=== PATIENT | male | born 1960 | race Caucasian/White ===

== ENCOUNTER 2021-06-18 08:49 | Outpatient (REF) | payer MEDICARE, SELFPAY ==
[2021-06-18 09:06] LABS: MANUAL DIFF FLAG NO
[2021-06-18 09:55] LABS: Basophils Absolute Auto 0.1 X10*3/uL (0.0-0.2); Basophils Percent Auto 0.8 % (0-2); Eosinophils Absolute Auto 0.4 X10*3/uL (0.0-0.4); Eosinophils Percent Auto 4.8 % (0-4); Hematocrit 42.7 % (42.0-52.0); Hemoglobin 14.6 g/dl (14.0-18.0); Imm Gran Abs Auto 0.04 X10*3/uL (0.00-0.03); Imm Gran Pct Auto 0.5 % (0.0-0.4); Lymphocytes Absolute Auto 1.8 X10*3/uL (1.2-4.9); Mean Corpuscular HGB Conc 34.2 g/dl (31.0-36.0); Mean Corpuscular Hemoglobin 30.5 pg (27.0-33.0); Mean Corpuscular Volume 89.3 fL (80.0-98.0); Mean Platelet Volume 11.2 fL (9.4-12.4); Monocytes Absolute Auto 0.9 X10*3/uL (0.1-1.2); Monocytes Percent Auto 9.8 % (2-11); Neutrophils Absolute Auto 5.5 x10*3/uL (2.0-8.3); Neutrophils Percent Auto 63.1 % (45-73); Platelet Count 179 X10*3/uL (160-400); Red Blood Count 4.78 X10*6/uL (4.60-5.80); Red Cell Distribution Width 12.3 % (11.0-16.0); White Blood Count 8.7 X10*3/uL (4.8-10.8)
[2021-06-18 10:31] LABS: Alanine Aminotransferase 37 U/L (0-40); Albumin Level 4.1 g/dL (3.5-5.0); Alkaline Phosphatase 77 U/L (39-117); Anion Gap 11 (12-20); Aspartate Amino Transferase 24 U/L (5-37); Bilirubin Total 0.5 mg/dL (0.0-1.0); Blood Urea Nitrogen 13 mg/dL (9-16); Calcium 9.4 mg/dL (8.4-10.2); Carbon Dioxide 27 mmol/L (22-29); Chloride 104 mmol/L (96-108); Cholesterol 213 mg/dL; Estimated Glomerular Filt Rate > 60; Glucose Fasting 136 mg/dL (60-99); HDL Cholesterol 43 mg/dL; LDL Cholesterol Calculated 153 mg/dl; Potassium 4.3 mmol/L (3.3-5.1); Sodium 138 mmol/L (135-145); Total Protein 7.3 g/dL (6.5-8.0); Triglycerides 87 mg/dL
[2021-06-18 11:21] LABS: Prostate Specific Antigen 0.67 ng/mL (<0.05-4.0)
== END 2021-06-18 08:50 | disposition home or self-care (01) ==
LOC: HO.LAB 08:49
PROVIDERS: PCP Internal Medicine Medical Oncology; Visit Provider Internal Medicine Medical Oncology
DX: Z12.5 Encounter for screening for malignant neoplasm of prostate (principal); E66.9 Obesity, unspecified; G47.30 Sleep apnea, unspecified; E78.5 Hyperlipidemia, unspecified; M19.90 Unspecified osteoarthritis, unspecified site
CPT/HCPCS: 36415; 80053; 80061; 84153; 85025

== ENCOUNTER 2022-05-28 07:26 | Outpatient (REF) | payer MEDICARE, SELFPAY ==
--- NOTE | ~2022-05-28 | XR_ITS ---
EXAMINATION: XR LUMBAR SPINE XR SACRUM AND COCCYX CLINICAL INFORMATION: Lumbar back pain and sacral pain. COMPARISON: None TECHNIQUE: Sacrum/coccyx 3 views. Lumbar spine 3 views. FINDINGS: Lumbar Spine: There is normal lumbar lordosis. The vertebral heights and alignment is normal. There is loss of L3-L4 disc height with moderate ventral spondylosis. The rest of the disc heights are normal. There is moderate bilateral L5-S1 and L4-L5 facet joint hypertrophy. No lytic process seen. The paravertebral soft tissues are normal. Sacrum and/or coccyx: There is no visible fracture or bony abnormality involving sacrum or coccyx. The pre and post sacral soft tissues are normal. SI joints are symmetrical. XR/XR sacrum coccyx min 2V IMPRESSION: 1. Degenerative disc changes L3-L4 disc level with moderate ventral spondylosis. No visible acute fracture, dislocation or lytic process seen. 2. Unremarkable sacrum and/or coccyx. No pre or post sacral soft tissue abnormality seen. The SI joints are symmetrical. 3. Unremarkable sacrum and coccyx
--- NOTE | ~2022-05-28 | XR_ITS ---
EXAMINATION: XR LUMBAR SPINE XR SACRUM AND COCCYX CLINICAL INFORMATION: Lumbar back pain and sacral pain. COMPARISON: None TECHNIQUE: Sacrum/coccyx 3 views. Lumbar spine 3 views. FINDINGS: Lumbar Spine: There is normal lumbar lordosis. The vertebral heights and alignment is normal. There is loss of L3-L4 disc height with moderate ventral spondylosis. The rest of the disc heights are normal. There is moderate bilateral L5-S1 and L4-L5 facet joint hypertrophy. No lytic process seen. The paravertebral soft tissues are normal. Sacrum and/or coccyx: There is no visible fracture or bony abnormality involving sacrum or coccyx. The pre and post sacral soft tissues are normal. SI joints are symmetrical. XR/XR lumbar spine 2-3V IMPRESSION: 1. Degenerative disc changes L3-L4 disc level with moderate ventral spondylosis. No visible acute fracture, dislocation or lytic process seen. 2. Unremarkable sacrum and/or coccyx. No pre or post sacral soft tissue abnormality seen. The SI joints are symmetrical. 3. Unremarkable sacrum and coccyx
[2022-05-28 07:43] LABS: MANUAL DIFF FLAG NO
[2022-05-28 08:11] LABS: Basophils Absolute Auto 0.1 X10*3/uL (0.0-0.2); Basophils Percent Auto 1.3 % (0-2); Eosinophils Absolute Auto 0.4 X10*3/uL (0.0-0.4); Eosinophils Percent Auto 7.7 % (0-4); Hematocrit 42.8 % (42.0-52.0); Hemoglobin 14.6 g/dl (14.0-18.0); Imm Gran Abs Auto 0.02 X10*3/uL (0.00-0.03); Imm Gran Pct Auto 0.4 % (0.0-0.4); Lymphocytes Absolute Auto 1.4 X10*3/uL (1.2-4.9); Lymphocytes Percent Auto 25.2 % (20-40); Mean Corpuscular HGB Conc 34.1 g/dl (31.0-36.0); Mean Corpuscular Hemoglobin 29.7 pg (27.0-33.0); Mean Corpuscular Volume 87.2 fL (80.0-98.0); Mean Platelet Volume 11.1 fL (9.4-12.4); Monocytes Absolute Auto 0.7 X10*3/uL (0.1-1.2); Monocytes Percent Auto 12.7 % (2-11); Neutrophils Percent Auto 52.7 % (45-73); Platelet Count 202 X10*3/uL (160-400); Red Blood Count 4.91 X10*6/uL (4.60-5.80); White Blood Count 5.6 X10*3/uL (4.8-10.8)
[2022-05-28 09:01] LABS: Alanine Aminotransferase 30 U/L (0-40); Albumin Level 4.1 g/dL (3.5-5.0); Alkaline Phosphatase 99 U/L (39-117); Anion Gap 13 (12-20); Aspartate Amino Transferase 20 U/L (5-37); Bilirubin Total 0.6 mg/dL (0.0-1.0); Blood Urea Nitrogen 13 mg/dL (9-16); Carbon Dioxide 28 mmol/L (22-29); Chloride 103 mmol/L (96-108); Cholesterol 164 mg/dL; Estimated Glomerular Filt Rate > 60; Glucose Fasting 155 mg/dL (60-99); HDL Cholesterol 38 mg/dL; LDL Cholesterol Calculated 109 mg/dl; Potassium 4.6 mmol/L (3.3-5.1); Prostate Specific Antigen 0.65 ng/mL (<0.05-4.0); Sodium 139 mmol/L (135-145); Triglycerides 86 mg/dL
== END 2022-05-28 07:27 | disposition home or self-care (01) ==
LOC: HO.LAB 07:26
PROVIDERS: PCP Internal Medicine Medical Oncology; Visit Provider Internal Medicine Medical Oncology
DX: G47.30 Sleep apnea, unspecified (principal); R73.9 Hyperglycemia, unspecified; E66.9 Obesity, unspecified; N40.0 Benign prostatic hyperplasia without lower urinary tract symptoms; M54.50 Low back pain, unspecified; M53.3 Sacrococcygeal disorders, not elsewhere classified; Z12.5 Encounter for screening for malignant neoplasm of prostate
CPT/HCPCS: 36415; 72100; 72220; 80053; 80061; 84153; 85025

== ENCOUNTER 2022-06-16 10:30 | Outpatient (REF) | payer MEDICARE, SELFPAY ==
--- NOTE | ~2022-06-16 | XR_ITS ---
EXAMINATION:XR cervical spine min 6V CLINICAL INFORMATION: Pain COMPARISON: None TECHNIQUE: 6 views acquired, frontal , lateral, both obliques, open-mouth odontoid view and swimmer's view. FINDINGS: 7 cervical vertebrae identified maintaining normal height and alignments.. Narrowing of intervertebral disc spaces at C4-C5, C5-C6, C6-C7 and C7-T1 suggests underlying mild degenerative disc disease. No prevertebral soft tissue swelling. Surrounding soft tissue and included lung apices are clear. There are developed small osteophyte from the edges of endplates encroaching on the foramen, on the left side at C3-C4, on the right side at C4-C5 and C5-C6. Included lung apices are clear. XR/XR cervical spine min 6V IMPRESSION: * No fracture. * Narrowing of intervertebral disc spaces suggest underlying degenerative disc disease. * Small osteophyte developed from the edges of endplates encroaching on the neural foramen at multiple levels, if patient has neurological symptoms consider correlation with MRI to assess for possible nerve impingement.
== END 2022-06-16 10:31 | disposition home or self-care (01) ==
LOC: HO.XRAY 10:30
PROVIDERS: PCP Internal Medicine Medical Oncology; Visit Provider Chiropractor
DX: M54.2 Cervicalgia (principal)
CPT/HCPCS: 72052

== ENCOUNTER → 2022-08-02 15:37 | Outpatient (BNVA) | payer MEDICARE, SELFPAY | PROVIDERS: PCP Internal Medicine Medical Oncology; Visit Provider Internal Medicine | DX: G47.33 Obstructive sleep apnea (adult) (pediatric) (principal); E66.9 Obesity, unspecified; Z68.34 Body mass index [BMI] 34.0-34.9, adult; Z99.89 Dependence on other enabling machines and devices | CPT/HCPCS: 99202 ==

== ENCOUNTER 2022-10-08 08:48 | Outpatient (REF) | payer BC, SELFPAY ==
[2022-10-08 09:00] LABS: MANUAL DIFF FLAG NO
[2022-10-08 09:05] LABS: Basophils Absolute Auto 0.1 X10*3/uL (0.0-0.2); Basophils Percent Auto 1.2 % (0-2); Eosinophils Absolute Auto 0.3 X10*3/uL (0.0-0.4); Eosinophils Percent Auto 4.9 % (0-4); Hematocrit 42.1 % (42.0-52.0); Hemoglobin 14.4 g/dl (14.0-18.0); Imm Gran Abs Auto 0.01 X10*3/uL (0.00-0.03); Imm Gran Pct Auto 0.2 % (0.0-0.4); Lymphocytes Absolute Auto 1.8 X10*3/uL (1.2-4.9); Lymphocytes Percent Auto 30.1 % (20-40); Mean Corpuscular HGB Conc 34.2 g/dl (31.0-36.0); Mean Corpuscular Hemoglobin 29.4 pg (27.0-33.0); Mean Corpuscular Volume 85.9 fL (80.0-98.0); Mean Platelet Volume 10.8 fL (9.4-12.4); Monocytes Absolute Auto 0.8 X10*3/uL (0.1-1.2); Monocytes Percent Auto 12.9 % (2-11); Neutrophils Percent Auto 50.7 % (45-73); Platelet Count 216 X10*3/uL (160-400); Red Cell Distribution Width 12.4 % (11.0-16.0); White Blood Count 5.9 X10*3/uL (4.8-10.8)
[2022-10-08 09:17] LABS: Estimated Average Glucose 166 mg/dL; Hemoglobin A1c % 7.4 %
[2022-10-08 09:35] LABS: Alanine Aminotransferase 38 U/L (0-40); Albumin Level 4.2 g/dL (3.5-5.0); Alkaline Phosphatase 110 U/L (39-117); Anion Gap 12 (12-20); Aspartate Amino Transferase 24 U/L (5-37); Bilirubin Total 0.6 mg/dL (0.0-1.0); Blood Urea Nitrogen 13 mg/dL (9-16); Calcium 9.6 mg/dL (8.4-10.2); Carbon Dioxide 25 mmol/L (22-29); Chloride 108 mmol/L (96-108); Cholesterol 168 mg/dL; Estimated Glomerular Filt Rate > 60; Glucose Random 151 mg/dL (60-115); HDL Cholesterol 39 mg/dL; LDL Cholesterol Calculated 116 mg/dl; Potassium 3.9 mmol/L (3.3-5.1); Sodium 141 mmol/L (135-145); Total Protein 7.1 g/dL (6.5-8.0); Triglycerides 68 mg/dL
[2022-10-08 09:48] LABS: Creatinine Urine 183.58 mg/dL; Microalbum/Creatinine Ratio Ur 9.2 ug/mg cr
== END 2022-10-08 08:49 | disposition home or self-care (01) ==
LOC: HO.LAB 08:48
PROVIDERS: PCP Internal Medicine Medical Oncology; Visit Provider Internal Medicine Medical Oncology
DX: G47.30 Sleep apnea, unspecified (principal); E78.5 Hyperlipidemia, unspecified; R73.9 Hyperglycemia, unspecified; E66.9 Obesity, unspecified
CPT/HCPCS: 36415; 80053; 80061; 82043; 83036; 85025

== ENCOUNTER 2023-06-10 09:45 | Outpatient (REF) | payer BC, SELFPAY ==
[2023-06-10 10:02] LABS: MANUAL DIFF FLAG NO
[2023-06-10 10:27] LABS: Basophils Absolute Auto 0.1 X10*3/uL (0.0-0.2); Basophils Percent Auto 1.1 % (0-2); Eosinophils Absolute Auto 0.3 X10*3/uL (0.0-0.4); Eosinophils Percent Auto 4.9 % (0-4); Hematocrit 42.3 % (42.0-52.0); Hemoglobin 14.4 g/dl (14.0-18.0); Imm Gran Abs Auto 0.01 X10*3/uL (0.00-0.03); Imm Gran Pct Auto 0.2 % (0.0-0.4); Lymphocytes Absolute Auto 1.7 X10*3/uL (1.2-4.9); Mean Corpuscular Hemoglobin 29.9 pg (27.0-33.0); Mean Corpuscular Volume 87.9 fL (80.0-98.0); Mean Platelet Volume 11.4 fL (9.4-12.4); Monocytes Absolute Auto 0.8 X10*3/uL (0.1-1.2); Monocytes Percent Auto 12.7 % (2-11); Neutrophils Absolute Auto 3.4 x10*3/uL (2.0-8.3); Neutrophils Percent Auto 54.1 % (45-73); Platelet Count 185 X10*3/uL (160-400); Red Blood Count 4.81 X10*6/uL (4.60-5.80); Red Cell Distribution Width 11.9 % (11.0-16.0); White Blood Count 6.4 X10*3/uL (4.8-10.8)
[2023-06-10 10:58] LABS: Alanine Aminotransferase 26 U/L (0-40); Alkaline Phosphatase 101 U/L (39-117); Anion Gap 13 (12-20); Aspartate Amino Transferase 21 U/L (5-37); Bilirubin Total 0.5 mg/dL (0.0-1.0); Blood Urea Nitrogen 12 mg/dL (9-16); Calcium 9.8 mg/dL (8.4-10.2); Carbon Dioxide 25 mmol/L (22-29); Chloride 105 mmol/L (96-108); Cholesterol 162 mg/dL (<200); Estimated Glomerular Filt Rate > 60; Glucose Random 158 mg/dL (60-115); HDL Cholesterol 42 mg/dL (>40); LDL Cholesterol Calculated 105 mg/dL (<100); Potassium 3.5 mmol/L (3.3-5.1); Sodium 139 mmol/L (135-145); Total Protein 7.4 g/dL (6.5-8.0); Triglycerides 78 mg/dL (<150)
[2023-06-10 11:16] LABS: Prostate Specific Antigen 0.81 ng/mL (<0.05-4.0)
== END 2023-06-10 09:46 | disposition home or self-care (01) ==
LOC: HO.LAB 09:45
PROVIDERS: PCP Internal Medicine Medical Oncology; Visit Provider Internal Medicine Medical Oncology
DX: Z12.5 Encounter for screening for malignant neoplasm of prostate (principal); E78.5 Hyperlipidemia, unspecified; E66.9 Obesity, unspecified; N40.0 Benign prostatic hyperplasia without lower urinary tract symptoms
CPT/HCPCS: 36415; 80053; 80061; 84153; 85025

== ENCOUNTER 2024-06-25 14:12 | Outpatient (REF) | payer BC, SELFPAY ==
[2024-06-25 14:49] LABS: C Reactive Protein 0.39 mg/dL (< or = 0.50)
[2024-06-25 15:15] LABS: Erythrocyte Sedimentation Rate 29 MM/HR (0-15)
== END 2024-06-25 14:13 | disposition home or self-care (01) ==
LOC: HO.LAB 14:12
PROVIDERS: PCP Internal Medicine Medical Oncology; Visit Provider Psychiatry & Neurology Neurology
DX: M31.6 Other giant cell arteritis (principal); H46.9 Unspecified optic neuritis
CPT/HCPCS: 36415; 85652; 86140

== ENCOUNTER 2024-06-26 16:29 | Outpatient (REF) | payer BC, SELFPAY ==
[2024-06-27 21:58] LABS: Lyme Abs Screen <0.90 index
== END 2024-06-26 16:30 | disposition home or self-care (01) ==
LOC: HO.LAB 16:29
PROVIDERS: PCP Internal Medicine Medical Oncology; Visit Provider Psychiatry & Neurology Neurology
DX: H46.9 Unspecified optic neuritis (principal)
CPT/HCPCS: 36415; 86617; 86618

== ENCOUNTER 2024-10-22 15:30 | Outpatient (AMB) | payer BC, SELFPAY ==
[2024-10-22 15:51] VITALS: BP 120/70; PULSE 79; O2SAT 97; BMI 28.1
--- NOTE | 2024-10-22 15:51 | A.OFFVIS_ITS ---
Vital Signs 10/22/24 15:51 Height 6 ft 1 in Weight 213 lb BMI 28.1 BP 120/70 Blood Pressure Location Lt brachial Position Sitting Pulse 79 Pulse Source Pulse Oximeter Pulse Oximetry (%) 97 Oxygen Delivery Method Room Air Intake Visit Reasons: Obstructive sleep apnea Intake Note: pt is here for COLBY follow up and needs new supplies but has lost weight and not sure of mask size at this time. Allergies hydromorphone [From Dilaudid] Adverse Reaction (Severe, Verified 10/22/24 16:17) Nausea and Vomiting Medication List - Last Reconciled 10/22/24 by Ishan Gary MD atorvastatin 10 mg PO DAILY lisinopril 10 mg PO DAILY metformin 850 mg PO DAILY omega-3 fatty acids 1,000 mg PO DAILY Do you need a note to return to daycare/school/sports/work: No HPI HPI Obstructive sleep apnea: Details: THIS 63 YEARS OLD VERY PLEASANT GENTLEMAN IS A CASE OF OBSTRUCTIVE SLEEP APNEA, LAST TIME HE WAS SEEN WAS A COUPLE YEARS AGO, HE HAS BEEN USING HIS CPAP VERY REGULARLY. DIAGNOSED TO HAVE DIABETES MELLITUS SINCE EARLY THIS YEAR. HE HAS BEEN WATCHING HIS DIET AND ALSO WAS STARTED ON METFORMIN. HE HAS LOST ABOUT 50 LB OF WEIGHT DURING THE PAST 6-8 MONTHS. FOR HIS CPAP HE HAS BEEN USING LARGE FULLFACE MASK. RECENTLY HAS NOTICED THAT WHILE HE IS SLEEPING HE WAKES UP WITH A BIG AIR LEAK. SO HE CAME TODAY TO DISCUSS ABOUT VARIOUS TYPES OF MASKS. EVEN THOUGH HE HAS LOST WEIGHT, HE WOULD STILL LIKE TO CONTINUE USING THE CPAP. PART OF THE REASON FOR HIS COLBY IS MILD RETROGNATHIA OF THE LOWER JAW. HE HAS OBSERVED THAT SINCE HE USES THE CPAP AT NIGHT HIS THE ALLERGIES HER MUCH LESS, AND WHEN HE MISSES USING THE CPAP FOR A FEW NIGHTS HE HAS HAS LOT OF SNEEZING DURING THE DAYTIME. [facility] Medical History COLBY on CPAP Obesity (BMI 30-39.9) Social History Patient Tobacco Use Status: Former Tobacco user Review of Systems Const All systems reviewed & are unremarkable except as noted in HPI and below Denies snoring Eyes Reports no additional complaints ENT Reports no additional complaints Card Denies chest pain at rest, Denies irregular heart rhythm and Denies leg edema Resp Denies cough, Denies snoring and Denies wheezing GI Reports no additional complaints Reports no additional complaints Musc Reports no additional complaints Skin/Breast Reports system reviewed and no additional complaints, except as documented Neuro Reports no additional complaints Psych Reports no additional complaints Endo Reports no additional complaints Franko/Lymph Reports no additional complaints Aller/Immun Reports no additional complaints and Denies wheezing Physical Exam Vital Signs: Last Vital Signs Pulse 79 10/22/24 15:51 BP 120/70 10/22/24 15:51 Pulse Ox 97 10/22/24 15:51 Oxygen Delivery Method Room Air 10/22/24 15:51 BMI result Body Mass Index 28.1 YEARS GROSSLY OBESE BUT OTHERWISE HEALTHY LOOKING Const General: healthy appearing (EXCEPT FOR BEING OVERWEIGHT), comfortable, no acute distress, alert and awake Orientation/consciousness: patient oriented x3 HEENT Head: Yes normal to inspection General nose exam: No nasal polyps present and No nasal discharge present Face and sinus: Yes sinuses nontender Mouth: oropharynx normal Throat: Yes posterior oropharynx normal and Yes other (MILD DEGREE OF RETROGNATHIA OF THE LOWER JAW.) Eyes General: appearance normal, both eyes and all related structures Neck Neck: Yes normal visual inspection, Yes no lymphadenopathy, Yes trachea midline and Yes no JVD Thyroid: Thyroid normal Chest Chest palpation & inspection: normal inspection of the chest, normal palpation of entire chest wall and no tenderness Resp Effort & Inspection: normal respiratory effort Auscultation: clear to auscultation bilaterally, no crackles and no wheezes Cardio Palpation: normal PMI Rate: regular rate Rhythm: regular rhythm Heart sounds: no gallops and no murmurs Peripheral pulses: Peripheral pulses 2+ throughout GI Palpation (GI): Soft to palpation, nontender, No hepatosplenomegaly present and no masses Auscultation: normal bowel sounds Back/Spine/Pelvis Thoracic/Lumbar Spine: thoracic and lumbar spine normal to inspection Skin General skin exam: no rashes or lesions noted Neuro General: patient oriented x3 and no focal motor deficits Cranial nerves: Yes CN's II-XII intact bilaterally Extrem General: Yes normal to inspection, Yes no clubbing, cyanosis or edema and Yes no calf tenderness Psych Speech and movement: Normal speech and movement present Results Reviewed Results Reviewed: COMPLIANCE REPORT FOR THE LAST 90 NIGHTS IS REVIEWED HE HAS USED NIGHTS. THERE IS EVIDENCE OF SIGNIFICANT AIR LEAK. RESIDUAL AHI 2.8 Assessment & Plan Assessment & Plan (1) COLBY on CPAP: Comment: HE IS KNOWN TO HAVE OBSTRUCTIVE SLEEP APNEA FOR THE LAST 7-8 YEARS AND HAS BEEN USING CPAP REGULARLY. IN THE LAST 6 MONTHS HE HAS LOST ABOUT 50 LB OF WEIGHT AND. THE SAME FULLFACE MASK THAT HE USED TO USE COMFORTABLY BEFORE IS NOW RESULTING I N AIR LEAK AT NIGHT. HE IS HERE TO EXPLORE ABOUT ANY NEW TYPE OF MASKS. Code(s): G47.33 - Obstructive sleep apnea (adult) (pediatric); Z99.89 - Dependence on other enabling machines and devices Category: Medical Plan: I DISCUSSED ABOUT HIS COMPLIANCE BEING SUBOPTIMAL. GAVE A SAMPLE OF AIR FIT -40 MASK, TO TRY. IF HE LIKES IT AND A WORKS BETTER THEN WE WILL ORDER THE NEW MASK FOR HIM. (2) Obesity (BMI 30-39.9): Comment: HE USED TO BE MODERATELY OBESE BUT LATELY HE HAS LOST SIGNIFICANT WEIGHT. BUT STILL EXPECTED TO HAVE RESIDUAL SLEEP APNEA DUE TO DAVID ALIGNMENT OF HIS TEETH ( RETROGNATHIA) Code(s): E66.9 - Obesity, unspecified Category: Medical Plan: COMMENDED FOR HAVING LOST WEIGHT. TOLD THAT IF HE LOSES MORE WEIGHT AND WANTS TO KNOW IF HE STILL NEEDS TO USE THE CPAP WE WILL BE GLAD TO ORDER A HOME-BASED SLEEP STUDY. Coding Level of Care Code Est Pt Level 3 (48850) Diagnoses COLBY on CPAP G47.33; Z99.89 Obesity (BMI 30-39.9) E66.9
--- OUTSIDE RECORDS SUMMARY | 2024-10-22 16:39 | XMS_ITS ---
Author Organization Jonny Wells III, MD Address [address] [address] Care Team Providers Care Brazer Controlled Atmospheric Furnace Name Role Phone Jonny Wells Primary Care Provider [phone] Allergies Allergen (clinical drug ingredient) Drug/Non Drug Allergy documented on EMR Reaction Allergy Type Onset Date Status meperidine Demerol Unknown Drug Allergy Active REASON FOR VISIT Retinal nerve infarct, Sleep apnea, cpap works, Obesity, Hyperlipidemia, Diabetes, Hypertension Medications Medication SIG (Take, Route, Frequency, Duration) Notes Start Date End Date Status metFORMIN HCl 850 MG 1 tablet with a chantale l Orally Once a day 06/27/2024 Active Aspirin 325 MG 1 tablet Orally Once a day Active Atorvastatin Calcium 10 MG 1 tablet Oral ly Once a day 06/27/2024 Active Lisinopril 10 MG 1 tablet Orally Once a day 06/27/2024 Active Vitamin B Complex Ac tive Niacin Active Guy 3 Active Ginkgo Biloba Active Vitamin C Active Vitamin D3 Active Folic Acid Active Social History Tobacco Use: Social History Observation Description Date Details (start date - stop date) Former Smoker NA - NA Sex Assigned At : Social History Observation Description Sex Assigned At Male Tobacco Control (Standard) Question Answer Notes Tobacco use: Former smoker How long has it been since you last smoked? Judya ter than 10 years Additional Findings: Tobacco non-user Ex-cigaret te smoker Vital Signs Temperature 98.2 degrees Fahrenheit 08/02/19 25 Blood pressure systolic 119 mm Hg 08/02/19 25 Blood pressure diastolic 70 mm Hg 025 Heart Rate 70 /min 08/02/2024 Height 73 in 08/02/2024 Weight 227 lbs 08/02/2024 BMI 29.95 kg/m2 08/02/2024 Encounters Encounter Location Date Provider Diagnosis Jonny Wells III, MD [address] [place] [address] [place] [address] 08/02/2024 Jonny Wells Obesity (BMI 30-39.9 ) E66.9 ; DM (diabetes mellitus) E11.9 ; BPH (benign prostatic hyperplasia) N40.0 ; Former smoker Z87.891 ; Sleep apnea, unspecified type G47.30 ; Hyperlipidemia, unspecified hyperlipidemia type E78.5 and Right anterior shoulder pain M25.511 Assessments Encounter Date Diagnosis (ICD Code) Assessment Notes Treat ment Notes Treatment Clinical Notes 08/02/2024 Obesity (BMI 30-39.9 ) (ICD-10 - E66.9) He has voluntarily lost 15 pounds. His blood pressure is much improved.His body mass index is now 29 no longer in the obese range. 08/02/2024 DM (diabetes mellitus) (ICD-10 - E11.9) His blood glucose level was were elevated into the diabetic range while he was in the hospital recently. He was discharged on 1000 mg of metformin twice daily. This has caused some side effects including GI upset and diarrhea. I have decreased the dose to 500 mg once a day He will continue on metformin and the dose will be titrated to optimal control.He has been referred to ophthalmology. 08/02/2024 BPH (benign prostati c hyperplasia) (ICD-10 - N40.0) He arises from sleep once or twice a night. Once again, we discussed lifestyle modification as a way to reduce nocturia. 08/02/2024 Former smoker (ICD-1 0 - Z87.891) He is highly motivated not to smoke and has not smoked for 20 years. We devised a plan to prevent relapse in times of stress and illness. 08/02/2024 Sleep apnea, unspecified type (ICD-10 - G47.30) He has a CPAP machine that is now functioning. He is using it every night. 08/02/2024 Hyperlipidemia, unspecified hyperlipidemia type (ICD-10 - E78.5) He has had no side effects from the statin medication. A comprehensive fasting lipid profile has been ordered to be done with a database prior to his next visit. 08/02/2024 Right anterior shoulder pain (ICD-10 - M25.511) This pain has resolved. Plan Of Treatment Medication Medication Name Sig Start Date Stop Date Notes metFORMIN HCl 850 MG 1 tablet with a chantale l Orally Once a day 06/27/2024 Aspirin 325 MG 1 tablet Orally Once a day Atorvastatin Calcium 10 MG 1 tablet Orally Once a day 02/2025 Lisinopril 10 MG 1 tablet Orally Once a day 06/27/2024 Vitamin B Complex Niacin Guy 3 Ginkgo Biloba Vitamin C Vitamin D3 Folic Acid Pending Test Test Name Order Date PROFILE, FASTING (COMPREHENSIVE METABOLI C) 08/02/2024 CBC w DIFF 08/02/2024 Lipid Panel 08/02/2024 Hemoglobin A1c 08/02/2024 Next Appt Details Follow Up: 3 Months, Reason: ov Provider Name:Jonny Wells, 11/08/2024 03:30:00 PM, [address] [place] [address] [address], [place], [address], Provider Name:Jonny Wells, 06/16/2025 03:30:00 PM, [address] [place] [address] [address], [place], [address], Progress Notes * KEANUJOHNTalDOB:1960 (63 yo M)Acc No.[id number]:08/02/2024 Progress Notes Patient:Tla MONTILLA Provider:?Jonny Wells MD :1960???Age:63 Y???Sex:Male [place] e:08/02/2024 Address:[address] [place] [id number] Subjective: * Chief Complaints: * ???Retinal nerve infarctSlee p apneaCpap worksObesityHyperlipidemiaDiabetesHypertension * HPI: ???COVID-19 Screening:? He comes to the office today for medical management of numerous issues.? 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 This was manifest as a black line in his visual field which has begun to resolve.? His vision is acceptable for driving.? He has lost 15 pounds through diet and exercise.? His arthritis and blood pressure are much improved.? We discussed his weight and diabetes and medications today at length. ?Questions?Have you had any new onset fever, chills, cough, congestion, sore throat, shortness of breath, muscle aches??No * ROS:?General/Constitutional:?pain?only normal aches and pains.?Chills?denies.?Fatigue?admits.?Fever?denies.?ENT:?Decreased hearing?denies.?Respiratory:?Cough?denies.?Cardiovascular:?Chest pain with exertion?denies.?Dyspnea on exertion?denies.?Shortness of breath?denies.?Gastrointestinal:?Constipation?occasional.?Decreased appetite?denies.?Diarrhea?denies.?Heartburn?denies.?Nausea?denies.?Rectal bleeding?denies.?Vomiting?denies.?Hematology:?bruising?denies.?petechiae?denies.?Swollen glands?none have been noted.?Genitourinary:?Frequent urination?twice a night.?Musculoskeletal:?Muscle aches?denies.?Painful joints?denies.?Sciatica?denies.?Weakness?denies.?Skin:?Itching?denies.?Rash?denies.?Skin lesion(s)?denies.?Neurologic:?Difficulty speaking?denies.?Dizziness?denies.?Headache?denies.?Low back pain?denies.?Psychiatric:?Depressed mood?denies.? * Medical History:? * Surgical History:?Left ingui nal herniorrhaphy 1997Colonoscopy 2012Nasal septoplasty 2007Sinus marcel- Dr. Beyer 2020No history * Hospitalization/Major Diagno stic Procedure:?No history [facility] for severe headache * Family History:?Father: dece ased 51 yrs, emphysema, coronary artery disease, myocardial infarction, coronary artery bypass surgery, alcohol use, diagnosed with Cancer.?Mother: 83 yrs, lung cancer, diagnosed with Cancer.?Children: alive.?Siblings: alive.?1 brother(s) , 2 sister(s) . 1 son(s) , 1 daughter(s) - healthy. .? His brother is hypertensive. One of his sisters has diabetes mellitus. His 2 children are healthy and well. His grandchildren are healthy and well. Aside from his father, there is no family history of substance abuse or mental illness. He is not aware of any history of breast cancer or ovarian cancer. He is not aware of any inherited cancer family syndrome. * Social History:?Tobacco Use:?Tobacco Control (Standard)?Tobacco use:?Former smoker ?How long has it been since you last smoked??Greater than 10 years ?Additional Findings: Tobacco non-user?Ex-cigarette smoker ???He has been to [facility] for 23 years. He is a of the [employer] [place]. He stopped smoking 20 years ago. He works for [employer] and has no toxic exposures. He has 2 children, a son [place], and a daughter, Monika Barnard. He has 8 healthy grandchildren Exercise: Diet: Occasional diarrhea from certain foods Work environment: Alcohol: Advised to limit consumption Living situation: Staying home for Vince, cooking for everyone Smoking: No. * Medications:?TakingVitamin D 3 Folic Acid Vitamin B Complex Guy 3 Niacin Vitamin C Ginkgo Biloba Aspirin 325 MG Tablet 1 tablet Orally Once a day metFORMIN HCl 850 MG Tablet 1 tablet with a meal Orally Once a day Lisinopril 10 MG Tablet 1 tablet Orally Once a day Atorvastatin Calcium 10 MG Tablet 1 tablet Orally Once a day Taking Vitamin D3 Taking Folic Acid Taking Vitamin B Complex Taking Guy 3 Taking Niacin Taking Vitamin C Taking Ginkgo Biloba Taking Aspirin 325 MG Tablet 1 tablet Orally Once a day Taking metFORMIN HCl 850 MG Tablet 1 tablet with a meal Orally Once a day Taking Lisinopril 10 MG Tablet 1 tablet Orally Once a day Taking Atorvastatin Calcium 10 MG Tablet 1 tablet Orally Once a day DiscontinuedIbuprofen 200 MG Tablet 1 tablet with food or milk as needed Orally Three times a day metFORMIN HCl 1000 MG Tablet 2 Tablets Orally every 4 hours As neededMedication List reviewed and reconciled with the patientDiscontinued Ibuprofen 200 MG Tablet 1 tablet with food or milk as needed Orally Three times a day Discontinued metFORMIN HCl 1000 MG Tablet 2 Tablets Orally every 4 hours As neededMedication List reviewed and reconciled with the patient * Allergies:?Demerolno[Allergi es Verified] Objective: * Vitals:?Ht: 73, Wt: 227, BMI :29.95, BP: 119/70, HR: 70, Temp: 98.2, Ht-cm: 185.42, Wt-k.97. * ???Past Orders: ???Lab:Lyme IgG/IgM w/reflex to WB (Order Date - 06/26/2024) (Collection Date & Time - 06/26/2024 04:39 PM) ? Value Reference Range ?Lyme IgG/IgM <0.90 - index ?Lyme Blot TNP - Lab:RBS/Hemocue glucose * Collection Date 06/21/2024 06/26/2023 Collection Time 02:17 PM Order Date 06/21/2024 06/26/2023 RBS 154 126 * Lab:URINE DIP STICK * Collection Date 06/10/2024 06/06/2023 Order Date 06/10/2024 06/06/2023 SG 1.005 (Ref Range: 1.005 - 1.025) 1.015 (Ref Range: 1.005 - 1.025) pH 6.0 (Ref Range: 5.0 - 9.0) 6.5 (Ref Range: 5.0 - 9.0) EMERITA Negative (Ref Range: Negative -) Negative (Ref Range: Negative -) NIT Negative (Ref Range: Negative -) Negative (Ref Range: Negative -) PRO Negative (Ref Range: Negative - Trace) 15 (Ref Range: Negative - Trace) GLU 100 (Ref Range: Negative -) Negative (Ref Range: Negative -) KET Negative (Ref Range: Negative -) Negative (Ref Range: Negative -) UBG 0.2 (Ref Range: 0.1 - 1.8) 0.2 (Ref Range: 0.1 - 1.8) GIO Negative (Ref Range: 0.2 - 1.3) Negative (Ref Range: 0.2 - 1.3) BLD Negative (Ref Range: Negative -) Negative (Ref Range: Negative -) Menstrating NR No * Examination: ???General Examination: ?GENERAL APPEARANCE:?pleasant, well nourished, well developed, in no acute distress, calm and relaxed, overweight, man.?HEAD:?atraumatic, normocephalic.?EYES:?eomi, perrla, anicteric, conjugate.?EARS:?normal.?NOSE:?septum intact.?ORAL CAVITY:?normal, unremarkable.?NECK/THYROID:?no jugular venous distention, no carotid bruit, thyroid normal.?LYMPH NODES:?no enlarged lymph nodes,spleen normal.?SKIN:?no suspicious lesions, anicteric.?HEART:?no clicks, gallops, murmurs, or rubs, regular rhythm, S1, S2 normal, no s3, or vascular bruits.?LUNGS:?clear to auscultation .?BREASTS:??no masses palpable bilaterally.?ABDOMEN:?bowel sounds normal, no ascites, no organomegaly, no mass, overweight.?RECTAL EXAM:?not examined.?MUSCULOSKELETAL:?extremities unremarkable, no clubbing, cyanosis or edema, Pain right shoulder to range of motion and elevation.?PERIPHERAL PULSES:?normal.?NEUROLOGIC:?alert and oriented, cranial nerves 2-12 grossly intact, deep tendon reflexes 2+ symmetrical, motor strength normal upper and lower extremities, sensory exam intact.?PSYCH:?alert, oriented.? Assessment: * Assessment: 1.?DM (diabetes mellitus) - E11.9 (Primary)???Notes :His blood glucose level was were elevated into the diabetic range while he was in the hospital recently. He was discharged on 1000 mg of metformin twice daily. This has caused some side effects including GI upset and diarrhea. I have decreased the dose to 500 mg once a day He will continue on metformin and the dose will be titrated to optimal control.He has been referred to ophthalmology.???2.?Obesity (BMI 30-39.9) - E66.9???Notes :He has voluntarily lost 15 pounds.? His blood? pressure is much improved.His body mass index is now 29 no longer in the obese range.???3.?BPH (benign prostatic hyperplasia) - N40.0???Notes :He arises from sleep once or twice a night. Once again, we discussed lifestyle modification as a way to reduce nocturia.???4.?Former smoker - Z87.891???Notes :He is highly motivated not to smoke and has not smoked for 20 years. We devised a plan to prevent relapse in times of stress and illness.???5.?Sleep apnea, unspecified type - G47.30???Notes :He has a CPAP machine that is now functioning.? He is using it every night.???6.?Hyperlipidemia, unspecified hyperlipidemia type - E78.5???Notes :He has had no side effects from the statin medication.? A comprehensive fasting lipid profile has been ordered to be done with a database prior to his next visit.???7.?Right anterior shoulder pain - M25.511???Notes :This pain has resolved.??? Plan: * Treatment: 2.?Others? Continue Vitamin D3;?Continue Folic Acid;?Continue Vitamin B Complex;?Continue Guy 3;?Continue Niacin;?Continue Vitamin C;?Continue Ginkgo Biloba;?Continue Aspirin Tablet, 325 MG, 1 tablet, Orally, Once a day;?Continue metFORMIN HCl Tablet, 850 MG, 1 tablet with a meal, Orally, Once a day;?Continue Lisinopril Tablet, 10 MG, 1 tablet, Orally, Once a day;?Continue Atorvastatin Calcium Tablet, 10 MG, 1 tablet, Orally, Once a day.?? * Procedure Codes:? * Preventive Medicine:? ??Counseling:?Care goal follow-up plan:?Counseling for abnormal BMI given?Yes ?Above Normal BMI Follow-up?Dietary management education, guidance, and counseling, Dietary needs education ?Smoking/Tobacco Use?Patient counseled on the dangers of tobacco use and urged to quit.?08/02/2024 ??DM Care Plan:?Patient Lifestyle Goals?Patient wants to be able to manage diabetes without too much effort.?Treatment Goals?Blood Sugars less than < 115, HbA1C < 7.0.?Barriers?no barriers.? * Follow Up:?3 Months (Reason: ov) * Images: * Sign off status: Completed true * Provider:?Jonny Wells MD Date:?07/20 Generated for Cecei baltazar/Elvi/eTransmitting on:?10/22/2024 04:39 PM EDT History and Physical Notes * HPI (History of Present Illness) Category Sub-Category Detail Notes COVID-19 Screening Questions Have you had any new onset fever, chills, cough, congestion, sore throat, shortness of breath, muscle aches?: No Examination Category Sub-Category Detail Notes General Examination GENERAL APPEARANCE: pleasant , well nourished, well developed, in no acute distress, calm and relaxed, overweight, man HEAD: atraumatic, normocep halic EYES: eomi, perrla, anicte deneen, conjugate EARS: normal NOSE: septum intact NECK/THYROID: no jugular venous di stention, no carotid bruit, thyroid normal HEART: no clicks, gallops, murmurs, or rubs, regular rhythm, S1, S2 normal, no s3, or vascular bruits LUNGS: clear to auscultatio n ABDOMEN: bowel sounds normal, no ascites, no organomegaly, no mass, overweight NEUROLOGIC: alert and oriented, cranial nerves 2-12 grossly intact, deep tendon reflexes 2+ symmetrical, motor strength normal upper and lower extremities, sensory exam intact SKIN: no suspicious lesion s, anicteric PERIPHERAL PULSES: normal BREASTS: no masses palpable b ilaterally MUSCULOSKELETAL: extremities unremark able, no clubbing, cyanosis or edema, Pain right shoulder to range of motion and elevation LYMPH NODES: no enlarged lymph no pari,spleen normal RECTAL EXAM: not examined PSYCH: alert, oriented ORAL CAVITY: normal, unremarkable
--- OUTSIDE RECORDS SUMMARY | 2024-10-22 16:39 | XMS_ITS ---
Author Organization Jonny Wells III, MD Address [address] [place] [address] Care Team Providers Care Tombstone Setter Name Role Phone Jonny Wells Primary Care Provider REASON FOR VISIT follow up Social History Sex Assigned At : Social History Observation Description Sex Assigned At Male Encounters Encounter Location Date Provider Diagnosis Jonny Wells III, MD [address] [place] [address] [place] [id number] 07/18/2024 Jonny Wells Plan Of Treatment Next Appt Details Provider Name:Jonny Wells, 11/08/2024 03:30:00 PM, [address] [place] [address] [place], [address], Provider Name:Jonny Wells, 06/16/2025 03:30:00 PM, [address] [place] [address] [place], [address], Progress Notes * Tal MARCUMDOB:1960 (63 yo M)Acc No.[id number]:07/18/2024 Progress Notes Patient:?JOSSUE Tal Provider:?Jonny Wells MD :1960???Age:63 Y???Sex:Male [place] e:07/18/2024 Address:[address] [place], [place] [address], [id number] Subjective: * Chief Complaints: * ???1. Follow up. * Medical History:? Objective: * Vitals:? Assessment: Plan: * Treatment: * Images: * The named appointment provid er may or may not be the originator of this progress note, and it is not deemed complete until electronically signed by the appointment provider. Sign off status: Pending * Provider:?Jonny Wells MD Date:?06/21 Generated for Adele ledesma/Elvi/Trinity on:?10/22/2024 04:39 PM EDT
--- OUTSIDE RECORDS SUMMARY | 2024-10-22 16:39 | XMS_ITS ---
Author Organization Jonny Wells III, MD Address [address] [place] [address] [place] [address] Care Team Providers Care Director Of Outpatient Services Name Role Phone Jonny Wells Primary Care Provider [phone] REASON FOR VISIT Lab Request Social History Sex Assigned At : Social History Observation Description Sex Assigned At Male Encounters Encounter Location Date Provider Diagnosis Jonny Wells III, MD [address] [place] [address] [place] [address] 10/10/2024 Jonny Wells Vitamin D deficiency , unspecified E55.9 Assessments Encounter Date Diagnosis (ICD Code) Assessment Notes Treat ment Notes Treatment Clinical Notes 10/10/2024 Vitamin D deficiency, unspecified (ICD-10 - E55.9) Plan Of Treatment Pending Test Test Name Order Date Vitamin D 25-OH Total 10/10/2024 Next Appt Details Provider Name:Jonny Wells, 11/08/2024 03:30:00 PM, [address] [place] [address] [place], [address], Provider Name:Jonny Wells, 06/16/2025 03:30:00 PM, [address] [place] [address] [place], [address], Progress Notes * Tal MARCUMDOB:1960 (63 yo M)Acc No.[id number]:10/10/2024 Patient:?Tal MARCUM :1960???Age:63 Y???Sex:Male Address:[address] [place] [address] [place], [address] Subjective: * Chief Complaints: * ???Lab Request * Medical History:? * Surgical History:? * Hospitalization/Major Diagno stic Procedure:? * Medications:? Objective: * Vitals:? * Physical Examination:? Assessment: * Assessment: 1.?Vitamin D deficiency, uns pecified - E55.9??? Plan: * Treatment: * Procedure Codes:? * true * Date:? Generated for Adele ledesma/Elvi/eTransmitting on:?10/22/2024 04:38 PM EDT
--- OUTSIDE RECORDS SUMMARY | 2024-10-22 16:39 | XMS_ITS | Patient Health Record ---
Author Organization Jonny Wells III, MD Address [address] [place] [address] Care Team Providers Care Box Inspector Name Role Phone Jonny Wells Primary Care Provider Allergies Allergen (clinical drug ingredient) Drug/Non Drug Allergy documented on EMR Reaction Allergy Type Onset Date Status meperidine Demerol Unknown Drug Allergy Active Results Component Value Reference Range Notes URINE DIP STICK Reviewed date:06/10/2024 03:54:44 PM Interpretation: Performing Lab: Notes/Report: SG 1.005 1.005 - 1.025 pH 6.0 5.0 - 9.0 EMERITA Negative Negative - NIT Negative Negative - PRO Negative Negative - Trace GLU 100 Negative - KET Negative Negative - UBG 0.2 0.1 - 1.8 GIO Negative 0.2 - 1.3 BLD Negative Negative - RBS/Hemocue glucose Reviewed date:06/21/2024 02:18:20 PM Interpretation: Performing Lab: Notes/Report: RBS 154 Lyme IgG/IgM w/reflex to WB Reviewed date:06/29/2024 09:06:26 PM Interpretation: Performing Lab:[facility], [address] [place] [id number] Notes/Report: Lyme Abs Screen <0.90 Index Interpretation ----- < 0.90 Negative 0.90-1.09 Equivocal > 1.09 Positive As recommended by the Food and Drug Administration (FDA), all samples with positive or equivocal results in a Borrelia burgdorferi antibody screen will be tested using a blot method. Positive or equivocal screening test results should not be interpreted as truly positive until verified as such using a supplemental assay (e.g., B. burgdorferi blot). The screening test and/or blot for B. burgdorferi antibodies may be falsely negative in early stages of Lyme disease, including the period when erythema migrans is apparent. THIS TEST WAS PERFORMED AT: [facility] [address] [place] [id number] MAT MARTIN MD Lyme Blot TNP Reason For Referral Reason Evaluate and Treat Recent TIA Ricardo band right eye, visual impairment Diagnosis 1 TIA (transient ische jana attack) (G45.9) Diagnosis 2 Visual disturbance ( H53.9) Diagnosis 3 Visual impairment (H 54.7) Referral Organization Jonny Wells III, MD Referring Provider First Name Jonny Referring Provider Last Name Russell Referring Provider Speciality Internal M edicine Referred Provider Arely Block Referred Provider Specialty Ophthalmolog y General Notes D Paula 06/24/2024 01:32:12 PM > Referral sent and patient was able to scheduled for 06/24/24 @ 4pm. Referral Priority Routine Referral Appointment Date 06/24/2024 Medications Medication SIG (Take, Route, Frequency, Duration) Notes Start Date End Date Status Vitamin D3 Active Vitamin B Complex Ac tive Folic Acid Active Niacin Active [place] 3 Active Ginkgo Biloba Active Vitamin C Active metFORMIN HCl 850 MG 1 tablet with a chantale l Orally Once a day 06/27/2024 Active Aspirin 325 MG 1 tablet Orally Once a day Active Atorvastatin Calcium 10 MG 1 tablet Oral ly Once a day 06/27/2024 Active Lisinopril 10 MG 1 tablet Orally Once a day 06/27/2024 Active Social History Tobacco Use: Social History Observation Description Date Details (start date - stop date) Former Smoker NA - NA Sex Assigned At : Social History Observation Description Sex Assigned At Male Tobacco Control (Standard) Question Answer Notes Tobacco use: Former smoker How long has it been since you last smoked? Grea ter than 10 years Additional Findings: Tobacco non-user Ex-cigaret te smoker AUDIT-C (Standard) Question Answer Notes Did you have a drink containing alcohol in the p ast year? No Points 0 Interpretation Negative Problems Problem Type SNOMED Code ICD Code Onset Dates Problem Status W/U Status Risk Notes Problem 0699267 Former smoker (Z87.891) Active confirmed He is highly motivated not to smoke and has not smoked for 20 years. We devised a plan to prevent relapse in times of stress and illness. Problem DM - Diabetes mellitus (14069372) DM (diabetes mellitus) (E11.9) Active confirmed His blood glucose level was were elevated [...] optimal control.He has been referred to ophthalmology. Problem 18739467 Hyperglycemia (R73.9) Active confirmed His hemoglobin A1c is 7.4 in the diabetic range. His fasting glucose is 151. He is aggressively losing weight, having lost 12 pounds since his last visit. He will continue to lose weight and follow his diet. If necessary, he will begin on medications. He will see an pilot plant technician. Problem Vitamin D deficiency (46058627) Vitamin D deficiency, unspecified (E55.9) Active confirmed Problem Benign prostatic hyperplasia (051787965) BPH (benign prostatic hyperplasia) (N40.0) Active confirmed He arises from sleep once or twice a night. Once again, we discussed lifestyle modification as a way to reduce nocturia. Problem 555734387 Obesity (BMI 30-39.9) (E66.9) Active confirmed He has voluntarily lost 15 pounds. His blood pressure is much improved.His body mass index is now 29 no longer in the obese range. Problem 11953113 Essential hypertension (I10) Active confirmed He was begun on 10 mg of lisinopril daily. Problem 752965679 Osteoarthritis, unspecified osteoarthritis type, unspecified site (M19.90) Active confirmed He was referred to [facility] for evaluation and treatment of his right shoulder pain. Problem Transient ischemic attack (126434747) TIA (transient ischemic attack) (G45.9) Active confirmed Problem 91599298 Sleep apnea, unspecified type (G47.30) Active confirmed He has a CPAP machine that is now functioning. He is using it every night. Problem 92947265 Hyperlipidemia, unspecified hyperlipidemia type (E78.5) Active confirmed He has had no side effects from the statin medication. A comprehensive fasting lipid profile has been ordered to be done with a database prior to his next visit. 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 His diabetes and lipids are being treated and evaluated. The fox band he had in his visual field is resolving. Problem 676661298 Type 2 diabetes mellitus without complication, without long-term current use of insulin (E11.9) Active confirmed He is toleratingHis medications without difficulty. I have ordered comprehensive blood work to include fasting lipids kidney function and fasting lipids. Problem 33866765 Right anterior shoulder pain (M25.511) Active confirmed This pain has resolved. Problem 50521791 Transient ischemia (I99.8) Active confirmed The diagnos is of TIA was considered in the hospital. He did have an episode of diplopia but this has completely resolved. 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 He has been placed on aspirin. Vital Signs Heart Rate 70 /min 08/02/2024 Temperature 98.2 degrees Fahrenheit 08/02/2024 Blood pressure diastolic 70 mm Hg 08/02/2024 Height 73 in 08/02/2024 Blood pressure systolic 119 mm Hg 08/02/2024 Weight 227 lbs 08/02/2024 BMI 29.95 kg/m2 08/02/2024 Encounters Encounter Location Date Provider Diagnosis Jonny Wells III, MD [address] [place] [address] [place] [address] 10/24/2023 Jonny Wells Hyperlipidemia, unspecified hyperlipidemia type E78.5 ; Obesity (BMI 30-39.9) E66.9 ; BPH (benign prostatic hyperplasia) N40.0 ; Former smoker Z87.891 and Enlarged lymph node R59.9 Jonny Wells III, MD [address] [place] [address] [place] [address] 06/10/2024 Jonny Wells Hyperlipidemia, unspecified hyperlipidemia type E78.5 ; Former smoker Z87.891 ; Obesity (BMI 30-39.9) E66.9 ; BPH (benign prostatic hyperplasia) N40.0 ; Sleep apnea, unspecified type G47.30 and Right anterior shoulder pain M25.511 Jonny Wells III, MD [address] [place] [address] [place] [address] 06/21/2024 Jonny Wells DM (diabetes mellitu s) E11.9 ; Transient ischemia I99.8 ; Migraine syndrome G43.909 ; Hyperlipidemia, unspecified hyperlipidemia type E78.5 ; Sleep apnea, unspecified type G47.30 ; Former smoker Z87.891 ; BPH (benign prostatic hyperplasia) N40.0 ; Obesity (BMI 30-39.9) E66.9 and Visual impairment H54.7 Jonny Wells III, MD [address] [place] [address] [place] [address] 06/24/2024 Jonny Wells Transient ischemia I 99.8 ; BPH (benign prostatic hyperplasia) N40.0 ; Former smoker Z87.891 ; Sleep apnea, unspecified type G47.30 ; Obesity (BMI 30-39.9) E66.9 and Hyperlipidemia, unspecified hyperlipidemia type E78.5 Jonny Wells III, MD [address] [place] [address] [place] [address] 06/27/2024 Jonny Wells Transient ischemia I 99.8 ; Hyperlipidemia, unspecified hyperlipidemia type E78.5 ; Right anterior shoulder pain M25.511 ; Former smoker Z87.891 ; Sleep apnea, unspecified type G47.30 ; BPH (benign prostatic hyperplasia) N40.0 ; Essential hypertension I10 and Type 2 diabetes mellitus without complication, without long-term current use of insulin E11.9 Jonny Wells III, MD [address] [place] [address] [place] [address] 07/04/2024 Jonny Wells Transient ischemia I 99.8 ; Visual impairment H54.7 ; Sleep apnea, unspecified type G47.30 ; Right anterior shoulder pain M25.511 ; Former smoker Z87.891 ; BPH (benign prostatic hyperplasia) N40.0 ; Obesity (BMI 30-39.9) E66.9 and Type 2 diabetes mellitus without complication, without long-term current use of insulin E11.9 Jonny Wells III, MD [address] [place] [address] [place] [address] 08/02/2024 Jonny Wells Obesity (BMI 30-39.9 ) E66.9 ; DM (diabetes mellitus) E11.9 ; BPH (benign prostatic hyperplasia) N40.0 ; Former smoker Z87.891 ; Sleep apnea, unspecified type G47.30 ; Hyperlipidemia, unspecified hyperlipidemia type E78.5 and Right anterior shoulder pain M25.511 Jonny Wells III, MD [address] [place] [address] [place] [address] 06/25/2024 Jonny Wells III, MD [address] [place] [address] [address] [place] [address] 10/10/2024 Jonny Wells Vitamin D deficiency , unspecified E55.9 Jonny Wells III, MD [address] [place] [address] [place] [address] 06/28/2024 Jonny Wells Assessments Encounter Date Diagnosis (ICD Code) Assessment Notes Treat ment Notes Treatment Clinical Notes 10/24/2023 Obesity (BMI 30-39.9) (ICD-10 - E66.9) He has gained 2 pounds since his last visit. He remains obese. We have reviewed his weight loss strategy and made a plan to lose weight at a rate of one half of a pound per week. 10/24/2023 Hyperlipidemia, unspecified hyperlipidemia type (ICD-10 - E78.5) He will have a lipid profile done prior to his next visit. No change in his medication was made today. 06/10/2024 Former smoker (ICD-10 - Z87.891) He is highly motivated not to smoke and has not smoked for 20 years. We devised a plan to prevent relapse in times of stress and illness. 06/10/2024 Hyperlipidemia, unspecified hyperlipidemia type (ICD-10 - E78.5) He will have a lipid profile done prior to his next visit. No change in his medication was made today. 06/21/2024 DM (diabetes mellitus) (ICD-10 - E11.9) His [...] optimal control.He has been referred to ophthalmology. 06/21/2024 Transient ischemia (ICD-10 - I99.8) The diagnosis of TIA was considered in the hospital. He did have an episode of diplopia but this has completely resolved. There is no sign of intracranial ischemia at this time. 06/24/2024 BPH (benign prostatic hyperplasia) (ICD-10 - N40.0) He arises from sleep once or twice a night. Once again, we discussed lifestyle modification as a way to reduce nocturia. 06/24/2024 Transient ischemia (ICD-10 - I99.8) The diagnosis of TIA was considered in the hospital. He did have an episode of diplopia but this has completely resolved. There is no sign of intracranial ischemia at this time. 06/27/2024 Hyperlipidemia, unspecified hyperlipidemia type (ICD-10 - E78.5) He was begun on a statin 10 mg daily today. His LDL will be titrated.I have explained the risks and the benefits and the rationale for using this. He will call me if he has any intolerance. 06/27/2024 Transient ischemia (ICD-10 - I99.8) The diagnosis of TIA was considered in the hospital. He did have an episode of diplopia but this has completely resolved. 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 He has been placed on aspirin. 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 His diabetes and lipids are being treated and evaluated. The fox band he had in his visual field is resolving. 07/04/2024 Transient ischemia (ICD-10 - I99.8) The diagnosis of TIA was considered in the hospital. He did have an episode of diplopia but this has completely resolved. 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 He has been placed on aspirin. 08/02/2024 DM (diabetes mellitus) (ICD-10 - E11.9) [...] control.He has been referred to ophthalmology. 08/02/2024 Obesity (BMI 30-39.9) (ICD-10 - E66.9) He has voluntarily lost 15 pounds. His blood pressure is much improved.His body mass index is now 29 no longer in the obese range. 10/10/2024 Vitamin D deficiency, unspecified (ICD-10 - E55.9) 10/24/2023 BPH (benign prostatic hyperplasia) (ICD-10 - N40.0) He arises from sleep once or twice a night. Once again, we discussed lifestyle modification as a way to reduce nocturia. 06/10/2024 Obesity (BMI 30-39.9) (ICD-10 - E66.9) He has gained 3 pounds since his last visit. He weighs 242 pounds. His body mass index is 31.9. He remains obese. We have reviewed his weight loss strategy and made a plan to lose weight at a rate of one half of a pound per week. 06/21/2024 Migraine syndrome (ICD-10 - G43.909) The neurologist diagnosis while in the hospital was of a migraine. He has medication for this. Follow-up visit in the very near future was arranged. 06/24/2024 Former smoker (ICD-10 - Z87.891) He is highly motivated not to smoke and has not smoked for 20 years. We devised a plan to prevent relapse in times of stress and illness. 06/27/2024 Right anterior shoulder pain (ICD-10 - M25.511) This pain has resolved. 07/04/2024 Sleep apnea, unspecified type (ICD-10 - G47.30) He has a CPAP machine but he is not using it. He has used in the past but says it is not comfortable and does not help him feel better. He denies any daytime somnolence. I advised him to return with the machine to the facility that this been started to see if it was functioning properly and the finger could be made more comfortable. I told him we would help him do this if he was unable to locate the facility. 08/02/2024 BPH (benign prostatic hyperplasia) (ICD-10 - N40.0) He arises from sleep once or twice a night. Once again, we discussed lifestyle modification as a way to reduce nocturia. 10/24/2023 Former smoker (ICD-10 - Z87.891) He is highly motivated not to smoke and has not smoked for 20 years. We devised a plan to prevent relapse in times of stress and illness. 06/10/2024 BPH (benign prostatic hyperplasia) (ICD-10 - N40.0) He arises from sleep once or twice a night. Once again, we discussed lifestyle modification as a way to reduce nocturia. 06/21/2024 Hyperlipidemia, unspecified hyperlipidemia type (ICD-10 - E78.5) He will have a lipid profile done prior to his next visit. No change in his medication was made today. 06/24/2024 Sleep apnea, unspecified type (ICD-10 - G47.30) He has a CPAP machine but he is not using it. He has used in the past but says it is not comfortable and does not help him feel better. He denies any daytime somnolence. I advised him to return with the machine to the facility that this been started to see if it was functioning properly and the finger could be made more comfortable. I told him we would help him do this if he was unable to locate the facility. 06/27/2024 Former smoker (ICD-10 - Z87.891) He is highly motivated not to smoke and has not smoked for 20 years. We devised a plan to prevent relapse in times of stress and illness. 07/04/2024 Right anterior shoulder pain (ICD-10 - M25.511) This pain has resolved. 08/02/2024 Former smoker (ICD-10 - Z87.891) He is highly motivated not to smoke and has not smoked for 20 years. We devised a plan to prevent relapse in times of stress and illness. 10/24/2023 Enlarged lymph node (ICD-10 - R59.9) Enlarged lymph node that was present under the angle of the jaw on the left is now resolved. 06/10/2024 Sleep apnea, unspecified type (ICD-10 - G47.30) He has a CPAP machine but he is not using it. He has used in the past but says it is not comfortable and does not help him feel better. He denies any daytime somnolence. I advised him to return with the machine to the facility that this been started to see if it was functioning properly and the finger could be made more comfortable. I told him we would help him do this if he was unable to locate the facility. 06/21/2024 Sleep apnea, unspecified type (ICD-10 - G47.30) He has a CPAP machine but he is not using it. He has used in the past but says it is not comfortable and does not help him feel better. He denies any daytime somnolence. I advised him to return with the machine to the facility that this been started to see if it was functioning properly and the finger could be made more comfortable. I told him we would help him do this if he was unable to locate the facility. 06/24/2024 Obesity (BMI 30-39.9) (ICD-10 - E66.9) He has gained 3 pounds since his last visit. He weighs 242 pounds. His body mass index is 31.9. He remains obese. We have reviewed his weight loss strategy and made a plan to lose weight at a rate of one half of a pound per week. 06/27/2024 Sleep apnea, unspecified type (ICD-10 - G47.30) He has a CPAP machine but he is not using it. He has used in the past but says it is not comfortable and does not help him feel better. He denies any daytime somnolence. I advised him to return with the machine to the facility that this been started to see if it was functioning properly and the finger could be made more comfortable. I told him we would help him do this if he was unable to locate the facility. 07/04/2024 Former smoker (ICD-10 - Z87.891) He is highly motivated not to smoke and has not smoked for 20 years. We devised a plan to prevent relapse in times of stress and illness. 08/02/2024 Sleep apnea, unspecified type (ICD-10 - G47.30) He has a CPAP machine that is now functioning. He is using it every night. 06/10/2024 Right anterior shoulder pain (ICD-10 - M25.511) This pain has resolved. 06/21/2024 Former smoker (ICD-10 - Z87.891) He is highly motivated not to smoke and has not smoked for 20 years. We devised a plan to prevent relapse in times of stress and illness. 06/24/2024 Hyperlipidemia, unspecified hyperlipidemia type (ICD-10 - E78.5) He will have a lipid profile done prior to his next visit. No change in his medication was made today. 06/27/2024 BPH (benign prostatic hyperplasia) (ICD-10 - N40.0) He arises from sleep once or twice a night. Once again, we discussed lifestyle modification as a way to reduce nocturia. 07/04/2024 BPH (benign prostatic hyperplasia) (ICD-10 - N40.0) He arises from sleep once or twice a night. Once again, we discussed lifestyle modification as a way to reduce nocturia. 08/02/2024 Hyperlipidemia, unspecified hyperlipidemia type (ICD-10 - E78.5) He has had no side effects from the statin medication. A comprehensive fasting lipid profile has been ordered to be done with a database prior to his next visit. 06/21/2024 BPH (benign prostatic hyperplasia) (ICD-10 - N40.0) He arises from sleep once or twice a night. Once again, we discussed lifestyle modification as a way to reduce nocturia. 06/27/2024 Essential hypertension (ICD-10 - I10) He was begun on 10 mg of lisinopril daily. 07/04/2024 Obesity (BMI 30-39.9) (ICD-10 - E66.9) His weight is stable at 242 pounds. His BMI is 39. We reviewed his diet and nutrition. We reviewed his weight loss strategy. 08/02/2024 Right anterior shoulder pain (ICD-10 - M25.511) This pain has resolved. 06/21/2024 Obesity (BMI 30-39.9) (ICD-10 - E66.9) He has gained 3 pounds since his last visit. He weighs 242 pounds. His body mass index is 31.9. He remains obese. We have reviewed his weight loss strategy and made a plan to lose weight at a rate of one half of a pound per week. 06/27/2024 Type 2 diabetes mellitus without complication, without long-term current use of insulin (ICD-10 - E11.9) His diabetes was noted. His metformin was increased a 50 mg daily. 07/04/2024 Type 2 diabetes mellitus without complication, without long-term current use of insulin (ICD-10 - E11.9) He is toleratingHis medications without difficulty. I have ordered comprehensive blood work to include fasting lipids kidney function and fasting lipids. 06/21/2024 Visual impairment (ICD-10 - H54.7) His visual king were clear when he was discharged from the hospital beginning yesterday and persisting until the day is a report of a thin fox line horizontally in his right visual field. Examination with an ophthalmoscope showed an immature cataract. What I could see of the retina without dilating the eyes appeared to be normal. He has been referred to ophthalmoloogy for definitive diagnosis and treatment and routine diabetic eye care. Plan Of Treatment Pending Test Test Name Order Date PROFILE, FASTING (COMPREHENSIVE METABOLI C) 03/10/2023 PROFILE, FASTING (COMPREHENSIVE METABOLI C) 07/18/2022 PROFILE, FASTING (COMPREHENSIVE METABOLI C) 06/10/2024 PROFILE, FASTING (COMPREHENSIVE METABOLI C) 05/23/2022 PROFILE, FASTING (COMPREHENSIVE METABOLI C) 10/24/2023 PROFILE, FASTING (COMPREHENSIVE METABOLI C) 05/19/2021 PROFILE, FASTING (COMPREHENSIVE METABOLI C) 06/06/2023 PROFILE, FASTING (COMPREHENSIVE METABOLI C) 08/02/2024 FASTING BLOOD SUGAR (FBS, GLUCOSE) 06/06 HEMOGLOBIN A1C (GLYCOHEMOGLOBIN) 023 HEMOGLOBIN A1C (GLYCOHEMOGLOBIN) 022 LIPID PANEL 03/10/2023 LIPID PANEL 07/18/2022 LIPID PANEL 05/19/2021 PSA, TOTAL 06/10/2024 PSA, TOTAL 05/23/2022 PSA, TOTAL 03/10/2023 PSA, TOTAL 10/24/2023 PSA, TOTAL 05/19/2021 PSA, TOTAL 06/06/2023 CBC w DIFF 08/02/2024 CBC w DIFF 06/10/2024 CBC w DIFF 05/23/2022 CBC w DIFF 03/10/2023 CBC w DIFF 07/18/2022 CBC w DIFF 05/19/2021 CBC WITH AUTO DIFF 06/06/2023 CBC WITH AUTO DIFF 10/24/2023 Lipid Panel 08/02/2024 Lipid Panel 06/10/2024 Lipid Panel 10/24/2023 Vitamin D 25-OH Total 10/10/2024 Microalbumin, Random 07/18/2022 Hemoglobin A1c 08/02/2024 Next Appt Details Provider Name:Jonny Wells, 11/08/2024 03:30:00 PM, [address] [place] [address] [address], [place], [phone], Provider Name:Jonny Wells, 06/16/2025 03:30:00 PM, [address] [place] [address] [address], [place], [phone], Insurance Providers Payer Name Payer Address Payer Phone Subscriber Number Group Number Insured Name Patient Relationship to Insured Coverage Start Date Coverage End Date [facility] [address] [place], [place] [id number] Tal Marcum Self - patient is the insured Medical (General) History Medical History History ICD Code Tinnitus Right shoulder pain Obesity Obstructive sleep apnea Hyperlipidemia History of left inguinal hernia repaired 1998 Deviated septum repair 2006 Former smoker discontinued 20 years ago Sleep apnea - managed with cpap machine Surgical History Surgery Date(Month/Year) No history Sinus lift- Dr. Beyer 2020 Nasal septoplasty 2006 Colonoscopy 2011 Left inguinal herniorrhaphy 1996 Hospitalization History Reason Date(Month/Year) [facility] for severe headache No history
== END 2024-10-22 16:17 | disposition home or self-care (01) ==
LOC: HO.HPS 15:31
PROVIDERS: PCP Internal Medicine Medical Oncology; Visit Provider Internal Medicine
DX: G47.33 Obstructive sleep apnea (adult) (pediatric) (principal); Z99.89 Dependence on other enabling machines and devices; E66.9 Obesity, unspecified
CPT/HCPCS: 99213

== ENCOUNTER → 2024-10-22 15:30 | Outpatient (BNVA) | payer BC, SELFPAY | PROVIDERS: PCP Internal Medicine Medical Oncology; Visit Provider Internal Medicine ==

== ENCOUNTER 2024-11-05 08:09 | Outpatient (REF) | payer BC, SELFPAY ==
--- OUTSIDE RECORDS SUMMARY | 2024-11-05 08:16 | XMS_ITS ---
Author Organization Jonny Wells III, MD Address [address] [facility] [place] [address] Care Team Providers Care Quality Control Industrial Engineer Name Role Phone Jonny Wells Primary Care [...] Vitamin B Complex Ac tive Niacin Active Mar Lin 3 Active Ginkgo Biloba Active Vitamin C [...] Date Provider Diagnosis Jonny Wells III, MD [address] [place] [address] [place] [address] 08/02/2024 Jonny Wells Obesity (BMI 30-39.9 ) [...] a day 06/27/2024 Vitamin B Complex Niacin Mar Lin 3 Ginkgo Biloba Vitamin C Vitamin D3 Folic Acid Pending Test Test Name Order Date PROFILE, FASTING (COMPREHENSIVE METABOLI C) 08/02/2024 CBC w DIFF 08/02/2024 Lipid Panel 08/02/2024 Hemoglobin A1c 08/02/2024 Next Appt Details Follow Up: 3 Months, Reason: ov Provider Name:Jonny Wells, 11/08/2024 03:30:00 PM, [address] [place] [address] [address], [place], [address], Provider Name:Jonny Wells, 06/16/2025 03:30:00 PM, [address] [place] [address] [address], [place], [address], Progress Notes * KEANUJOHNTalDOB:1960 (63 yo M)Acc No.[id number]:08/02/2024 Progress Notes Patient:Tal MONTILLA Provider:?Jonny Wells MD :1960???Age:63 Y???Sex:Male [place] e:08/02/2024 Address:[address] [place] [address] Subjective: * Chief Complaints: * ???Retinal nerve infarctSlee p apneaCpap worksObesityHyperlipidemiaDiabetesHypertension * HPI: ???COVID-19 Screening:? He comes to the office today for medical management of numerous issues.? He was told by his neuro-quality nurse that he had an ophthalmic nerve infarct. [...] history * Hospitalization/Major Diagno stic Procedure:?No history [facility] for severe headache * Family History:?Father: [...] 23 years. He is a of the [employer]. He stopped smoking 20 years ago. He works for [employer] and has no toxic exposures. He has 2 children, a son [place], and a daughter, Monika Barnard. He has 8 healthy grandchildren Exercise: Diet: Occasional diarrhea from certain foods Work environment: Alcohol: Advised to limit consumption Living situation: Staying home for Vince, cooking for everyone Smoking: No. * Medications:?TakingVitamin D 3 Folic Acid Vitamin B Complex Mar Lin 3 Niacin Vitamin C Ginkgo Biloba Aspirin 325 MG Tablet 1 tablet Orally Once a day metFORMIN HCl 850 MG Tablet 1 tablet with a meal Orally Once a day Lisinopril 10 MG Tablet 1 tablet Orally Once a day Atorvastatin Calcium 10 MG Tablet 1 tablet Orally Once a day Taking Vitamin D3 Taking Folic Acid Taking Vitamin B Complex Taking Mar Lin 3 Taking Niacin Taking Vitamin C Taking [...] Vitamin D3;?Continue Folic Acid;?Continue Vitamin B Complex;?Continue Mar Lin 3;?Continue Niacin;?Continue Vitamin C;?Continue Ginkgo Biloba;?Continue Aspirin [...] Wells MD Date:?07/20 Generated for Cecei baltazar/Elvi/eTransmitting on:?11/05/2024 08:16 AM EDT History and Physical Notes * HPI [...]
--- OUTSIDE RECORDS SUMMARY | 2024-11-05 08:16 | XMS_ITS | Patient Health Record ---
Author Organization Jonny Wells III, MD Address [address] [place] [address] Care Team Providers Care Process Architect Name Role Phone Jonny Wells Primary Care [...] WB Reviewed date:06/29/2024 09:06:26 PM Interpretation: Performing Lab:[facility], [address] [place] [phone] Notes/Report: Lyme Abs Screen <0.90 Index Interpretation [...] is apparent. THIS TEST WAS PERFORMED AT: [facility] [address] [place] [phone] MAT MARTIN MD Lyme Blot TNP Reason [...] Ac tive Folic Acid Active Niacin Active [place] 3 Active Ginkgo Biloba Active Vitamin C [...] Problem Status W/U Status Risk Notes Problem 3462157 Former smoker (Z87.891) Active confirmed He is highly motivated not to smoke and has not smoked for 20 years. We devised a plan to prevent relapse in times of stress and illness. Problem DM - Diabetes mellitus (73158081) DM (diabetes mellitus) (E11.9) Active confirmed His [...] control.He has been referred to ophthalmology. Problem 84857853 Hyperglycemia (R73.9) Active confirmed His hemoglobin A1c is 7.4 in the diabetic range. His fasting glucose is 151. He is aggressively losing weight, having lost 12 pounds since his last visit. He will continue to lose weight and follow his diet. If necessary, he will begin on medications. He will see an tool planner. Problem Vitamin D deficiency (72169313) Vitamin D deficiency, unspecified (E55.9) Active confirmed Problem Benign prostatic hyperplasia (795200078) BPH (benign prostatic hyperplasia) (N40.0) Active confirmed He arises from sleep once or twice a night. Once again, we discussed lifestyle modification as a way to reduce nocturia. Problem 016809996 Obesity (BMI 30-39.9) (E66.9) Active confirmed He has voluntarily lost 15 pounds. His blood pressure is much improved.His body mass index is now 29 no longer in the obese range. Problem 50586223 Essential hypertension (I10) Active confirmed He was begun on 10 mg of lisinopril daily. Problem 297186829 Osteoarthritis, unspecified osteoarthritis type, unspecified site (M19.90) Active confirmed He was referred to [facility] for evaluation and treatment of his right shoulder pain. Problem Transient ischemic attack (754171885) TIA (transient ischemic attack) (G45.9) Active confirmed Problem 69675701 Sleep apnea, unspecified type (G47.30) Active confirmed He has a CPAP machine that is now functioning. He is using it every night. Problem 06578487 Hyperlipidemia, unspecified hyperlipidemia type (E78.5) Active confirmed He has had no side effects from the statin medication. A comprehensive fasting lipid profile has been ordered to be done with a database prior to his next visit. 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 His diabetes and lipids are being treated and evaluated. The fox band he had in his visual field is resolving. Problem 556846638 Type 2 diabetes mellitus without complication, without long-term current use of insulin (E11.9) Active confirmed He is toleratingHis medications without difficulty. I have ordered comprehensive blood work to include fasting lipids kidney function and fasting lipids. Problem 11389767 Right anterior shoulder pain (M25.511) Active confirmed This pain has resolved. Problem 79217977 Transient ischemia (I99.8) Active confirmed The diagnos [...] Date Provider Diagnosis Jonny Wells III, MD [address] [place] [address] [place] [address] 06/10/2024 Jonny Wells Hyperlipidemia, unspecified hyperlipidemia type E78.5 ; Former smoker Z87.891 ; Obesity (BMI 30-39.9) E66.9 ; BPH (benign prostatic hyperplasia) N40.0 ; Sleep apnea, unspecified type G47.30 and Right anterior shoulder pain M25.511 Jonny Wells III, MD [address] [place] [address] [place] [address] 06/21/2024 Jonny Wells DM (diabetes mellitu s) E11.9 ; Transient ischemia I99.8 ; Migraine syndrome G43.909 ; Hyperlipidemia, unspecified hyperlipidemia type E78.5 ; Sleep apnea, unspecified type G47.30 ; Former smoker Z87.891 ; BPH (benign prostatic hyperplasia) N40.0 ; Obesity (BMI 30-39.9) E66.9 and Visual impairment H54.7 Jonny Wells III, MD [address] [place] [address] [place] [address] 06/24/2024 Jonny Wells Transient ischemia I 99.8 ; BPH (benign prostatic hyperplasia) N40.0 ; Former smoker Z87.891 ; Sleep apnea, unspecified type G47.30 ; Obesity (BMI 30-39.9) E66.9 and Hyperlipidemia, unspecified hyperlipidemia type E78.5 Jonny Wells III, MD [address] [place] [address] [place] [address] 06/27/2024 Jonny Wells Transient ischemia I 99.8 ; Hyperlipidemia, unspecified hyperlipidemia type E78.5 ; Right anterior shoulder pain M25.511 ; Former smoker Z87.891 ; Sleep apnea, unspecified type G47.30 ; BPH (benign prostatic hyperplasia) N40.0 ; Essential hypertension I10 and Type 2 diabetes mellitus without complication, without long-term current use of insulin E11.9 Jonny Wells III, MD [address] [place] [address] [place] [address] 07/04/2024 Jonny Wells Transient ischemia I 99.8 ; Visual impairment H54.7 ; Sleep apnea, unspecified type G47.30 ; Right anterior shoulder pain M25.511 ; Former smoker Z87.891 ; BPH (benign prostatic hyperplasia) N40.0 ; Obesity (BMI 30-39.9) E66.9 and Type 2 diabetes mellitus without complication, without long-term current use of insulin E11.9 Jonny Wells III, MD [address] [place] [address] [place] [address] 08/02/2024 Jonny Wells Obesity (BMI 30-39.9 ) E66.9 ; DM (diabetes mellitus) E11.9 ; BPH (benign prostatic hyperplasia) N40.0 ; Former smoker Z87.891 ; Sleep apnea, unspecified type G47.30 ; Hyperlipidemia, unspecified hyperlipidemia type E78.5 and Right anterior shoulder pain M25.511 Jonny Wells III, MD [address] [place] [address] [place] [address] 06/25/2024 Jonny Wells III, MD [address] [place] [address] [place] [address] 10/10/2024 Jnony Wells Vitamin D deficiency , unspecified E55.9 Jonny Wells III, MD [address] [place] [address] [address] [place], [place] [address] 06/28/2024 Jonny Wells Assessments Encounter Date Diagnosis (ICD Code) Assessment Notes Treat ment Notes Treatment Clinical Notes 06/10/2024 Former smoker (ICD-10 - Z87.891) He [...] sign of intracranial ischemia at this time.The neuro-tool planner believes that 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 He has been placed on aspirin. 07/04/2024 Visual impairment (ICD-10 - H54.7) His tool planner stated that he has had an infarct [...] sign of intracranial ischemia at this time.The neuro-tool planner believes that there was a ssmall infarction [...] Vitamin D deficiency, unspecified (ICD-10 - E55.9) 06/10/2024 Obesity (BMI 30-39.9) (ICD-10 - E66.9) [...] as a way to reduce nocturia. 06/10/2024 BPH (benign prostatic hyperplasia) (ICD-10 - [...] in times of stress and illness. 06/10/2024 Sleep apnea, unspecified type (ICD-10 - [...] Order Date PROFILE, FASTING (COMPREHENSIVE METABOLI C) 06/06/2023 PROFILE, FASTING (COMPREHENSIVE METABOLI C) 08/02/2024 PROFILE, FASTING (COMPREHENSIVE METABOLI C) 03/10/2023 PROFILE, FASTING (COMPREHENSIVE METABOLI C) 07/18/2022 PROFILE, FASTING (COMPREHENSIVE METABOLI C) 06/10/2024 PROFILE, FASTING (COMPREHENSIVE METABOLI C) 05/23/2022 PROFILE, FASTING (COMPREHENSIVE METABOLI C) 10/24/2023 PROFILE, FASTING (COMPREHENSIVE METABOLI C) 05/19/2021 FASTING BLOOD SUGAR (FBS, GLUCOSE) 06/06 HEMOGLOBIN A1C (GLYCOHEMOGLOBIN) 022 HEMOGLOBIN A1C (GLYCOHEMOGLOBIN) 023 LIPID PANEL 03/10/2023 LIPID PANEL 07/18/2022 LIPID PANEL 05/19/2021 PSA, TOTAL 05/19/2021 PSA, TOTAL 06/06/2023 PSA, TOTAL 06/10/2024 PSA, TOTAL 05/23/2022 PSA, TOTAL 03/10/2023 PSA, TOTAL 10/24/2023 CBC w DIFF 05/19/2021 CBC w DIFF 08/02/2024 CBC w DIFF 06/10/2024 CBC w DIFF 05/23/2022 CBC w DIFF 03/10/2023 CBC w DIFF 07/18/2022 CBC WITH AUTO DIFF 10/24/2023 CBC WITH AUTO DIFF 06/06/2023 Lipid Panel 10/24/2023 Lipid Panel 08/02/2024 Lipid Panel 06/10/2024 Vitamin D 25-OH Total 10/10/2024 Microalbumin, Random 07/18/2022 Hemoglobin A1c 08/02/2024 Next Appt Details Provider Name:Jonny Wells, 11/08/2024 03:30:00 PM, [address] [place] [address] [address], [place], [address], Provider Name:Jonny Wells, 06/16/2025 03:30:00 PM, [address] [place] [address] [address], [place], [address], Insurance Providers Payer Name Payer Address Payer Phone Subscriber Number Group Number Insured Name Patient Relationship to Insured Coverage Start Date Coverage End Date [facility] [address] [place], [place] [id number] Tal Marcum Self - patient is the [...] inguinal herniorrhaphy 1996 Hospitalization History Reason Date(Month/Year) [facility] for severe headache No history
--- OUTSIDE RECORDS SUMMARY | 2024-11-05 08:17 | XMS_ITS | Encounter Summary ---
Author Organization [facility] Address [address] [place] [address] Care Team Providers Care Fern Cutter Name Role Phone Antonio De La Torre MD Primary Care Provider [phone] Encounter Details Date Type Department Care Team Description 11/17/2015 Financial Services Internship Report Medical Records [address] [place] [address] Brenda Viramontes Social History Tobacco Use Types Packs/Day Years Used Date Smoking Tobacco: Former Comments:over 10 years Alcohol Use Standard Drinks/Week Comments Not Asked 0 (1 standard drink = 0.6 oz pur e alcohol) Sex Assigned at Date Recorded Not on file documented as of this encounter Plan of Treatment Not on file documented as of this encounter Visit Diagnoses Not on filedocumented in this encounter Care Teams Fern Cutter Relationship Specialty Start Date End Date Antonio De La Torre MD [address] [place] [address] PCP - General Internal Medicine 02/03/15 documented as of this encounter
--- OUTSIDE RECORDS SUMMARY | 2024-11-05 08:17 | XMS_ITS | Encounter Summary ---
Author Organization [facility] Address [address] [place] [address] Care Team Providers Care Commercial Loan Manager Name Role Phone Antonio De La Torre MD Primary Care Provider + [phone] Reason for Visit * Reason Onset Date Comments APPOINTMENT 07/01/2020 Encounter Details Date Type Department Care Team Description 07/01/2020 Telephone Pulmonology - [place] [address] [facility] [address] [place] [address] Katerin Salmon FNP [address] [place] [address] APPOINTMENT Social History Tobacco Use Types Packs/Day Years Used Date Smoking Tobacco: Former Smokeless Tobacco: Never Comments:over 10 years Alcohol Use Standard Drinks/Week Comments Not Asked 0 (1 standard drink = 0.6 oz pur e alcohol) Sex Assigned at Date Recorded Not on file documented as of this encounter Miscellaneous Notes * Telephone Encounter - Johnny Bob - 07/01/2020 3:45 PM EST Received order from [employer] for order to be signed dated and faxed. Spoke to patient he states that he has new coverage under BS PPO. He says he received a list of pulmo Dr's that he can go to for COLBY. Patient will call back with this info. IF he has listed then patient can schedule with Katerin for 1 yr f/u for COLBY, because Katerin work's under Dr. Sheehan. documented in this encounter Plan of Treatment Not on file documented as of this encounter Visit Diagnoses Not on filedocumented in this encounter Care Teams Commercial Loan Manager Relationship Specialty Start Date End Date Antonio De La Torre MD [address] [place] [address] PCP - General Internal Medicine 02/03/15 documented as of this encounter
--- OUTSIDE RECORDS SUMMARY | 2024-11-05 08:17 | XMS_ITS | Encounter Summary ---
Author Organization [facility] Address [address] [place] [address] Care Team Providers Care Grinder And Honer Operator Automatic Name Role Phone Antonio De La Torre MD Primary Care Provider + [phone] Reason for Visit * Reason Onset Date Comments APPOINTMENT 09/13/2021 Encounter Details Date Type Department Care Team Description 09/13/2021 Telephone Pulmonology - [place] [address] [facility] [address] [place] [phone] Katerin Salmon [facility] [address] [place] [address] APPOINTMENT Social History Tobacco Use Types Packs/Day Years Used Date Smoking Tobacco: Former Smokeless Tobacco: Never Comments:over 10 years Alcohol Use Standard Drinks/Week Comments Not Asked 0 (1 standard drink = 0.6 oz pur e alcohol) Sex Assigned at Date Recorded Not on file documented as of this encounter Miscellaneous Notes * Telephone Encounter - Kaitlin Perez - 09/13/2021 11:17 AM EDT Patient wishes to apologies for missing appointment on 09/09/21, had it mixed up with another appointment. Scheduled follow up for 09/15/21. documented in this encounter Plan of Treatment Not on file documented as of this encounter Visit Diagnoses Not on filedocumented in this encounter Care Teams Grinder And Honer Operator Automatic Relationship Specialty Start Date End Date Antonio De La Torre MD [address] [place] [address] PCP - General Internal Medicine 02/03/15 documented as of this encounter
--- OUTSIDE RECORDS SUMMARY | 2024-11-05 08:17 | XMS_ITS ---
Author Organization Jonny Wells III, MD Address [address] [place] [address] [place] [address] Care Team Providers Care Rounding Machine Operator Name Role Phone Jonny Wells Primary Care Provider REASON FOR VISIT Lab Request Social History Sex Assigned At : Social History Observation Description Sex Assigned At Male Encounters Encounter Location Date Provider Diagnosis Jonny Wells III, MD [address] [place] [address] [place] [address] 10/10/2024 Jonny Wells Vitamin D deficiency , unspecified E55.9 Assessments Encounter Date Diagnosis (ICD Code) Assessment Notes Treat ment Notes Treatment Clinical Notes 10/10/2024 Vitamin D deficiency, unspecified (ICD-10 - E55.9) Plan Of Treatment Pending Test Test Name Order Date Vitamin D 25-OH Total 10/10/2024 Next Appt Details Provider Name:Jonny Wells, 11/08/2024 03:30:00 PM, [address] [place] [address] [place], [address], Provider Name:Jonny Wells, 06/16/2025 03:30:00 PM, [address] [place] [address] [place], [address], Progress Notes * Tal MARCUMDOB:1960 (63 yo M)Acc No.[id number]:10/10/2024 Patient:?Tla MARCUM :1960???Age:63 Y???Sex:Male Address:[address] [place] [address] [place], [address] Subjective: * Chief Complaints: * ???Lab Request * Medical History:? * Surgical History:? * Hospitalization/Major Diagno stic Procedure:? * Medications:? Objective: * Vitals:? * Physical Examination:? Assessment: * Assessment: 1.?Vitamin D deficiency, uns pecified - E55.9??? Plan: * Treatment: * Procedure Codes:? * true * Date:? Generated for Adele ledesma/Elvi/eTransmitting on:?11/05/2024 08:16 AM EDT
--- OUTSIDE RECORDS SUMMARY | 2024-11-05 08:17 | XMS_ITS | Encounter Summary ---
Author Organization [facility] Address [address] [place] [address] Care Team Providers Care Library Supervisor Name Role Phone Antonio De La Torre MD Primary Care Provider + [phone] Encounter Details Date Type Department Care Team Description 07/26/2019 Release of Information Medical Records [address] [place] [address] Abstract, Provider Social History Tobacco Use Types Packs/Day Years [...] on filedocumented in this encounter Care Teams Library Supervisor Relationship Specialty Start Date End Date Antonio De La Torre MD [address] [place] [address] PCP - General Internal Medicine 02/03/15 documented as of this encounter
--- OUTSIDE RECORDS SUMMARY | 2024-11-05 08:17 | XMS_ITS ---
Author Organization Jonny Wells III, MD Address [address] [facility] [address] [place] [address] Care Team Providers Care Salesperson Surgical Appliances Name Role Phone Jonny Wells Primary Care Provider REASON FOR VISIT follow up Social History Sex Assigned At : Social History Observation Description Sex Assigned At Male Encounters Encounter Location Date Provider Diagnosis Jonny Wells III, MD [address] [place] [address] [place] [address] 11/01/2024 Jonny Wells Plan Of Treatment Next Appt Details Provider Name:Jonny Wells, 11/08/2024 03:30:00 PM, [address] [place] [address] [place], [address], Provider Name:Jonny Wells, 06/16/2025 03:30:00 PM, [address] [place] [address] [place], [address], Progress Notes * Tal MARCUMDOB:1960 (63 yo M)Acc No.[id number]:11/01/2024 Progress Notes Patient:?JOSSUE Atl Provider:?Jonny Wells MD :1960???Age:63 Y???Sex:Male [place] e:11/01/2024 Address:[address] [place], [place] [address], [phone] Subjective: * Chief Complaints: * ???1. Follow up. * Medical History:? Objective: * Vitals:? Assessment: Plan: * Treatment: * Images: * The named appointment provid er may or may not be the originator of this progress note, and it is not deemed complete until electronically signed by the appointment provider. Sign off status: Pending * Provider:?Jonny Welsl MD Date:?10/17 Generated for Adele ledesma/Elvi/Ghanshyamitting on:?11/05/2024 08:16 AM EDT
--- OUTSIDE RECORDS SUMMARY | 2024-11-05 08:17 | XMS_ITS | Encounter Summary ---
Author Organization [facility] Address [address] [place] [address] Care Team Providers Care Continuing Education Specialist Name Role Phone Antonio De La Torre MD Primary Care Provider + [phone] Reason for Visit * Reason Onset Date Comments DME Request 09/23/2021 Encounter Details Date Type Department Care Team Description 09/23/2021 Telephone Pulmonology - [place] [address] [facility] [address] [place] [address] Katerin Salmon, [facility] [address] [place] [address] DME Request Social History Tobacco Use Types Packs/Day Years Used Date Smoking Tobacco: Former Smokeless Tobacco: Never Comments:over 10 years Alcohol Use Standard Drinks/Week Comments Not Asked 0 (1 standard drink = 0.6 oz pur e alcohol) Sex Assigned at Date Recorded Not on file documented as of this encounter Miscellaneous Notes * Telephone Encounter - Farideh Luque - 09/23/2021 2:44 PM EDT Done faxed order to [employer] for supplies documented in this encounter Plan of Treatment Not on file documented as of this encounter Visit Diagnoses Not on filedocumented in this encounter Care Teams Continuing Education Specialist Relationship Specialty Start Date End Date Antonio De La Torre MD [address] [place] [address] PCP - General Internal Medicine 02/03/15 documented as of this encounter
[2024-11-05 08:19] LABS: MANUAL DIFF FLAG NO
[2024-11-05 08:39] LABS: Basophils Percent Auto 0.7 % (0-2); Eosinophils Absolute Auto 0.3 X10*3/uL (0.0-0.4); Eosinophils Percent Auto 4.9 % (0-4); Hematocrit 38.3 % (42.0-52.0); Hemoglobin 13.1 g/dl (14.0-18.0); Imm Gran Abs Auto 0.02 X10*3/uL (0.00-0.03); Imm Gran Pct Auto 0.3 % (0.0-0.4); Lymphocytes Absolute Auto 1.3 X10*3/uL (1.2-4.9); Lymphocytes Percent Auto 23.3 % (20-40); Mean Corpuscular HGB Conc 34.2 g/dl (31.0-36.0); Mean Corpuscular Hemoglobin 30.5 pg (27.0-33.0); Mean Corpuscular Volume 89.1 fL (80.0-98.0); Mean Platelet Volume 10.7 fL (9.4-12.4); Monocytes Absolute Auto 0.8 X10*3/uL (0.1-1.2); Monocytes Percent Auto 13.2 % (2-11); Neutrophils Absolute Auto 3.3 x10*3/uL (2.0-8.3); Neutrophils Percent Auto 57.6 % (45-73); Platelet Count 172 X10*3/uL (160-400); White Blood Count 5.8 X10*3/uL (4.8-10.8)
[2024-11-05 09:26] LABS: Alanine Aminotransferase 41 U/L (0-40); Albumin Level 4.1 g/dL (3.5-5.0); Alkaline Phosphatase 80 U/L (39-117); Anion Gap 13 (12-20); Aspartate Amino Transferase 25 U/L (5-37); Bilirubin Total 0.6 mg/dL (0.0-1.0); Blood Urea Nitrogen 16 mg/dL (9-16); Calcium 9.8 mg/dL (8.4-10.2); Carbon Dioxide 26 mmol/L (22-29); Chloride 104 mmol/L (96-108); Cholesterol 104 mg/dL (<200); Estimated Glomerular Filt Rate > 60; Glucose Fasting 117 mg/dL (60-99); HDL Cholesterol 41 mg/dL (>40); LDL Cholesterol Calculated 55 mg/dL (<100); Potassium 4.6 mmol/L (3.3-5.1); Sodium 138 mmol/L (135-145); Total Protein 7.2 g/dL (6.5-8.0); Triglycerides 42 mg/dL (<150)
[2024-11-05 09:36] LABS: Estimated Average Glucose 117 mg/dL; Hemoglobin A1C 133.8546 umol/L; Hemoglobin A1c % 5.7 % (<6.0); Total Hemoglobin (HGBA1C) 3406.5839 umol/L
== END 2024-11-05 08:10 | disposition home or self-care (01) ==
LOC: HO.LAB 08:09
PROVIDERS: PCP Internal Medicine Medical Oncology; Visit Provider Internal Medicine Medical Oncology
DX: E66.9 Obesity, unspecified (principal); E55.9 Vitamin D deficiency, unspecified; Z13.1 Encounter for screening for diabetes mellitus
CPT/HCPCS: 36415; 80053; 80061; 82306; 83036; 85025

== ENCOUNTER 2025-01-27 06:04 | Outpatient (REF) | payer BC, SELFPAY ==
--- OUTSIDE RECORDS SUMMARY | 2025-01-27 06:06 | XMS_ITS | Patient Health Record ---
Author Organization Jonny Wells III, MD Address [address] [place] [address] Care Team Providers Care Vp Analysis Name Role Phone Jonny Wells Primary Care Provider [phone] Allergies Allergen (clinical drug ingredient) Drug/Non Drug [...] WB Reviewed date:06/29/2024 09:06:26 PM Interpretation: Performing Lab:[facility] [place], [address] [place] [phone] Notes/Report: Lyme Abs Screen <0.90 Index Interpretation [...] is apparent. THIS TEST WAS PERFORMED AT: [facility] [address] [place] [phone] MAT MARTIN MD Lyme Blot TNP Complete Blood Count Auto Di ff Reviewed date:11/05/2024 11:51:41 AM Interpretation: Performing Lab:[facility] [place], [address] [place] [phone] Notes/Report: White Blood Count 5.8 4.8-10.8 X10*3/uL Red Blood Count 4.30 4.60-5.80 X10*6/uL Hemoglobin 13.1 14.0-18.0 g/dl Hematocrit 38.3 42.0-52.0 % Mean Corpuscular Volume 89.1 80.0-98.0 fL Mean Corpuscular Hemoglobin 30.5 27.0-33.0 pg Mean Corpuscular HGB Conc 34.2 31.0-36.0 g/dl Red Cell Distribution Width 12.0 11.0-16.0 % Platelet Count 172 160-400 X10*3/uL Mean Platelet Volume 10.7 9.4-12.4 fL Neutrophils Percent Auto 57.6 45-73 % Imm Gran Pct Auto 0.3 0.0-0.4 % Lymphocytes Percent Auto 23.3 20-40 % Monocytes Percent Auto 13.2 2-11 % Eosinophils Percent Auto 4.9 0-4 % Basophils Percent Auto 0.7 0-2 % NRBC Pct Auto 0.0 0.0-0.2 /100WBC Neutrophils Absolute Auto 3.3 2.0-8.3 x10*3/u L Imm Gran Abs Auto 0.02 0.00-0.03 X10*3/uL Lymphocytes Absolute Auto 1.3 1.2-4.9 X10*3/u L Monocytes Absolute Auto 0.8 0.1-1.2 X10*3/uL Eosinophils Absolute Auto 0.3 0.0-0.4 X10*3/u L Basophils Absolute Auto 0.0 0.0-0.2 X10*3/uL NRBC Abs Auto 0.000 0.0-0.012 X10*3/uL Comprehensive [place]. Panel Fa st Reviewed date:11/05/2024 11:51:41 AM Interpretation: Performing Lab:[facility] [place], [address] [place] [phone] Notes/Report: Sodium 138 135-145 mmol/L Potassium 4.6 3.3-5.1 mmol/L Chloride 104 96-108 mmol/L Carbon Dioxide 26 22-29 mmol/L Anion Gap 13 12-20 Blood Urea Nitrogen 16 9-16 mg/dL Creatinine 0.66 0.5-1.4 mg/dL Estimated Glomerular Filt Rate > 60 Chronic Kidney Disease: Estimated GFR < 60 mL/min/1.73m2 Severe Kidney Disease: Estimated GFR < 15 mL/min/1.73m2 Glucose Fasting 117 60-99 mg/dL A fasting glucose from 100-125 mg/dl is considered impaired (pre-diabetes). Calcium 9.8 8.4-10.2 mg/dL Bilirubin Total 0.6 0.0-1.0 mg/dL Aspartate Amino Transferase 25 5-37 U/L Alanine Aminotransferase 41 0-40 U/L Total Protein 7.2 6.5-8.0 g/dL Albumin Level 4.1 3.5-5.0 g/dL Alkaline Phosphatase 80 39-117 U/L Lipid Panel Reviewed date:11/05/2024 11:51:41 AM Interpretation: Performing Lab:[facility] [place], [address] [place] [phone] Notes/Report: Triglycerides 42 <150 mg/dL Desirable Triglyceride: less than 150 mg/dL Borderline High Triglyceride 150-199 mg/dL High Triglyceride: 200-499 mg/dL Very High Triglyceride: greater than or equal to 5OO mg/dL Cholesterol 104 <200 mg/dL Desirable Cholesterol: less than 200 mg/dL Borderline High Cholesterol: 200-239 mg/dL High Cholesterol: greater than 239 mg/dL LDL Cholesterol Calculated 55 <100 mg/dL Desirable LDL: less than 100 mg/dL Near Optimal/Above Optimal LDL: 110-129 mg/dL Borderline High LDL: 130-159 mg/dL High LDL: 160-189 mg/dL Very High LDL: greater than or equal to 190 mg/dL HDL Cholesterol 41 >40 mg/dL Desirable HDL: greater than 40 mg/dL Note: This HDL assay may give artificially low results in patients with liver disease. Vitamin D 25-OH Total Reviewed date:11/05/2024 11:51:41 AM Interpretation: Performing Lab:[facility] [place], [address] [place] [phone] Notes/Report: Vitamin D 25-OH Total 69.0 >30 ng/mL Health Based Reference Values* < [...] confirmed with another method such as LC-MS/MS. Hemoglobin A1c Reviewed date:11/05/2024 11:51:41 AM Interpretation: Performing Lab:[facility] [place], [address] [place] [phone] Notes/Report: Hemoglobin A1c % 5.7 <6.0 % Hemoglobin A1C Reference Range Adults: 4.8 - 6.0 % Non diabetic: < 6.0 % Goal: < 7.0 % Additional Action Suggested: > 8.0 % Note: Hemoglobin A1c results are invalid for patients with abnormal amounts of HbF. Blood transfusions may impact the HbA1c concentration in the patient sample. Estimated Average Glucose 117 eAG = Estimated average glucose which is %A1C expressed as average glucose, using the formula of the [id number] Average Glucose study (ADAG), Diabetes Care, Vol.31,#8, 2007 Reason For Referral Reason Evaluate and Treat [...] Referred Provider Specialty Ophthalmolog y General Notes Paula Davis 06/24/2024 01:32:12 PM > Referral sent and [...] Oral ly Once a day 06/27/2024 Active [place] 3 Active Niacin Active Vitamin C Active Ginkgo Biloba Active Vitamin B Complex Ac tive Vitamin D3 Active Folic Acid Active Social [...] Problem Status W/U Status Risk Notes Problem 7963864 Former smoker (Z87.891) Active confirmed He is highly motivated not to smoke and has not smoked for 20 years. We devised a plan to prevent relapse in times of stress and illness. Problem DM - Diabetes mellitus (09371120) DM (diabetes mellitus) (E11.9) Active confirmed He has been compliant with his metformin. His glucose fasting was 155. At home his glucose is between 69 and 1:30. He has lost 12 pounds. His A1c has fallen from 7.4 to 5.7.No changes in his medication were made today. Problem 107774769 Overweight (E66.3) Active confirmed He has lost 6 pounds since his last visit. We discussed diet and nutrition and made her weight loss strategy. Problem 62924990 Hyperglycemia (R73.9) Active confirmed His hemoglobin A1c is 7.4 in the diabetic range. His fasting glucose is 151. He is aggressively losing weight, having lost 12 pounds since his last visit. He will continue to lose weight and follow his diet. If necessary, he will begin on medications. He will see an spring bender. Problem Vitamin D deficiency (44581058) Vitamin D deficiency, unspecified (E55.9) Active confirmed He continues on his supplement. His vitamin D level is in the normal range. Problem 961417513 Essential tremor (G25.0) Active confirmed There was very little tremor visible today. He says it is intermittent. It will be observed at this time. A metabolic profilee will be ordered. At this time I found no sign of Parkinson's Problem Benign prostatic hyperplasia (649117301) BPH (benign prostatic hyperplasia) (N40.0) Active confirmed He arises from sleep once or twice a night. Once again, we discussed lifestyle modification as a way to reduce nocturia. Problem 241632057 Obesity (BMI 30-39.9) (E66.9) Active confirmed He has voluntarily lost 15 pounds. His blood pressure is much improved.His body mass index is now 29 no longer in the obese range. Problem 13158119 Essential hypertension (I10) Active confirmed He was begun on 10 mg of lisinopril daily. Problem 819100504 Osteoarthritis, unspecified osteoarthritis type, unspecified site (M19.90) Active confirmed He was referred to [facility] for evaluation and treatment of his right shoulder pain. Problem Transient ischemic attack (423270984) TIA (transient ischemic attack) (G45.9) Active confirmed Problem 09841070 Sleep apnea, unspecified type (G47.30) Active confirmed He has a CPAP machine that is now functioning. He is using it every night. Problem 32481746 Hyperlipidemia, unspecified hyperlipidemia type (E78.5) Active confirmed Comprehensive blood work or the fasting lipid profile has been ordered. 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 His diabetes and lipids are being treated and evaluated. The fox band he had in his visual field is resolving. Problem 291291451 Type 2 diabetes mellitus without complication, without long-term current use of insulin (E11.9) Active confirmed He is toleratingHis medications without difficulty. I have ordered comprehensive blood work to include fasting lipids kidney function and fasting lipids. Problem 18753290 Right anterior shoulder pain (M25.511) Active confirmed This pain has resolved. Problem 25173549 Transient ischemia (I99.8) Active confirmed The diagnos is of TIA was considered in the hospital. He did have an episode of diplopia but this has completely resolved. 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 He has been placed on aspirin. Vital Signs Heart Rate 74 /min 01/20/2025 Temperature 98.4 degrees Fahrenheit 01/20/2025 Blood pressure diastolic 71 mm Hg 01/20/2025 Height 73 in 01/20/2025 Blood pressure systolic 130 mm Hg 01/20/2025 Weight 209 lbs 01/20/2025 BMI 27.57 kg/m2 01/20/2025 Encounters Encounter Location Date Provider Diagnosis Jonny Wells III, MD [address] [place] [address] [place] [address] 06/10/2024 Jonny Wells Hyperlipidemia, unspecified hyperlipidemia type E78.5 ; Former smoker Z87.891 ; Obesity (BMI 30-39.9) E66.9 ; BPH (benign prostatic hyperplasia) N40.0 ; Sleep apnea, unspecified type G47.30 and Right anterior shoulder pain M25.511 Jonny Wells III, MD [address] [place] [address] [place] [address] 06/21/2024 Jonny Wells DM (diabetes mellitu s) E11.9 ; Transient ischemia I99.8 ; Migraine syndrome G43.909 ; Hyperlipidemia, unspecified hyperlipidemia type E78.5 ; Sleep apnea, unspecified type G47.30 ; Former smoker Z87.891 ; BPH (benign prostatic hyperplasia) N40.0 ; Obesity (BMI 30-39.9) E66.9 and Visual impairment H54.7 Jonny Wells III, MD [address] [place] [address] [place] [address] 06/24/2024 Jonny Wells Transient ischemia I 99.8 ; BPH (benign prostatic hyperplasia) N40.0 ; Former smoker Z87.891 ; Sleep apnea, unspecified type G47.30 ; Obesity (BMI 30-39.9) E66.9 and Hyperlipidemia, unspecified hyperlipidemia type E78.5 Jonny Wells III, MD [address] [place] [address] [place] [address] 06/27/2024 Jonny Wells Transient ischemia I 99.8 ; Hyperlipidemia, unspecified hyperlipidemia type E78.5 ; Right anterior shoulder pain M25.511 ; Former smoker Z87.891 ; Sleep apnea, unspecified type G47.30 ; BPH (benign prostatic hyperplasia) N40.0 ; Essential hypertension I10 and Type 2 diabetes mellitus without complication, without long-term current use of insulin E11.9 Jonny Wells III, MD [address] [place] [address] [place] [address] 07/04/2024 Jonny Wells Transient ischemia I 99.8 ; Visual impairment H54.7 ; Sleep apnea, unspecified type G47.30 ; Right anterior shoulder pain M25.511 ; Former smoker Z87.891 ; BPH (benign prostatic hyperplasia) N40.0 ; Obesity (BMI 30-39.9) E66.9 and Type 2 diabetes mellitus without complication, without long-term current use of insulin E11.9 Jonny Wells III, MD [address] [place] [address] [place] [address] 08/02/2024 Jonny Wells Obesity (BMI 30-39.9 ) E66.9 ; DM (diabetes mellitus) E11.9 ; BPH (benign prostatic hyperplasia) N40.0 ; Former smoker Z87.891 ; Sleep apnea, unspecified type G47.30 ; Hyperlipidemia, unspecified hyperlipidemia type E78.5 and Right anterior shoulder pain M25.511 Jonny Wells III, MD [address] [place] [address] [place] [address] 11/08/2024 Jonny Wells DM (diabetes mellitu s) E11.9 ; Former smoker Z87.891 ; Sleep apnea, unspecified type G47.30 ; Hyperlipidemia, unspecified hyperlipidemia type E78.5 ; Osteoarthritis, unspecified osteoarthritis type, unspecified site M19.90 ; Right anterior shoulder pain M25.511 ; BPH (benign prostatic hyperplasia) N40.0 and Vitamin D deficiency, unspecified E55.9 Jonny Wells III, MD [address] [place] [address] [place] [address] 01/20/2025 Jonny Wells Hyperlipidemia, unspecified hyperlipidemia type E78.5 ; Essential tremor G25.0 ; Sleep apnea, unspecified type G47.30 ; Osteoarthritis, unspecified osteoarthritis type, unspecified site M19.90 ; Right anterior shoulder pain M25.511 ; Former smoker Z87.891 ; BPH (benign prostatic hyperplasia) N40.0 ; Essential hypertension I10 ; Type 2 diabetes mellitus without complication, without long-term current use of insulin E11.9 and Overweight E66.3 Jonny Wells III, MD [address] [place] [address] [place] [address] 06/25/2024 Jonny Wells III, MD [address] [place] [address] [place] [address] 10/10/2024 Jonny Wells Vitamin D deficiency , unspecified E55.9 Jonny Wells III, MD [address] [place] [address] [place] [address] 06/28/2024 Jonny Wells Assessments Encounter Date Diagnosis [...] sign of intracranial ischemia at this time.The neuro-spring bender believes that 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 He has been placed on aspirin. 07/04/2024 Visual impairment (ICD-10 - H54.7) His spring bender stated that he has had an infarct [...] sign of intracranial ischemia at this time.The neuro-spring bender believes that there was a ssmall infarction [...] 29 no longer in the obese range. 11/08/2024 Former smoker (ICD-10 - Z87.891) He is highly motivated not to smoke and has not smoked for 20 years. We devised a plan to prevent relapse in times of stress and illness. 11/08/2024 DM (diabetes mellitus) (ICD-10 - E11.9) He has been compliant with his metformin. His glucose fasting was 155. At home his glucose is between 69 and 1:30. He has lost 12 pounds. His A1c has fallen from 7.4 to 5.7.No changes in his medication were made today. 01/20/2025 Essential tremor (ICD-10 - G25.0) There was very little tremor visible today. He says it is intermittent. It will be observed at this time. A metabolic profilee will be ordered. At this time I found no sign of Parkinson's 01/20/2025 Hyperlipidemia, unspecified hyperlipidemia type (ICD-10 - E78.5) Comprehensive blood work or the fasting lipid profile has been ordered. 10/10/2024 Vitamin D deficiency, unspecified (ICD-10 - [...] as a way to reduce nocturia. 11/08/2024 Sleep apnea, unspecified type (ICD-10 - G47.30) He has a CPAP machine that is now functioning. He is using it every night. 01/20/2025 Sleep apnea, unspecified type (ICD-10 - G47.30) He has a CPAP machine that is now functioning. He is using it every night. 06/10/2024 BPH (benign prostatic hyperplasia) (ICD-10 - [...] in times of stress and illness. 11/08/2024 Hyperlipidemia, unspecified hyperlipidemia type (ICD-10 - E78.5) He has had no side effects from the statin medication. A comprehensive fasting lipid profile has been ordered to be done with a database prior to his next visit. 01/20/2025 Osteoarthritis, unspecified osteoarthritis type, unspecified site (ICD-10 - M19.90) He was referred to [facility] for evaluation and treatment of his right shoulder pain. 06/10/2024 Sleep apnea, unspecified type (ICD-10 - [...] He is using it every night. 11/08/2024 Osteoarthritis, unspecified osteoarthritis type, unspecified site (ICD-10 - M19.90) He was referred to [facility] for evaluation and treatment of his right shoulder pain. 01/20/2025 Right anterior shoulder pain (ICD-10 - M25.511) This pain has resolved. 06/10/2024 Right anterior shoulder pain (ICD-10 - [...] database prior to his next visit. 11/08/2024 Right anterior shoulder pain (ICD-10 - M25.511) This pain has resolved. 01/20/2025 Former smoker (ICD-10 - Z87.891) He is highly motivated not to smoke and has not smoked for 20 years. We devised a plan to prevent relapse in times of stress and illness. 06/21/2024 BPH (benign prostatic hyperplasia) (ICD-10 - [...] This pain has resolved. 11/08/2024 BPH (benign prostatic hyperplasia) (ICD-10 - N40.0) He arises from sleep once or twice a night. Once again, we discussed lifestyle modification as a way to reduce nocturia. 01/20/2025 BPH (benign prostatic hyperplasia) (ICD-10 - N40.0) He arises from sleep once or twice a night. Once again, we discussed lifestyle modification as a way to reduce nocturia. 06/21/2024 Obesity (BMI 30-39.9) (ICD-10 - E66.9) [...] fasting lipids kidney function and fasting lipids. 11/08/2024 Vitamin D deficiency, unspecified (ICD-10 - E55.9) He continues on his supplement. His vitamin D level is in the normal range. 01/20/2025 Essential hypertension (ICD-10 - I10) He was begun on 10 mg of lisinopril daily. 06/21/2024 Visual impairment (ICD-10 - H54.7) His [...] and treatment and routine diabetic eye care. 01/20/2025 Type 2 diabetes mellitus without complication, [...] her weight loss strategy. Plan Of Treatment Pending Test Test Name Order Date PROFILE, FASTING (COMPREHENSIVE METABOLI C) 03/10/2023 PROFILE, FASTING (COMPREHENSIVE METABOLI C) 07/18/2022 PROFILE, FASTING (COMPREHENSIVE METABOLI C) 06/10/2024 PROFILE, FASTING (COMPREHENSIVE METABOLI C) 05/23/2022 PROFILE, FASTING (COMPREHENSIVE METABOLI C) 10/24/2023 PROFILE, FASTING (COMPREHENSIVE METABOLI C) 05/19/2021 PROFILE, FASTING (COMPREHENSIVE METABOLI C) 11/08/2024 PROFILE, FASTING (COMPREHENSIVE METABOLI C) 01/20/2025 PROFILE, FASTING (COMPREHENSIVE METABOLI C) 06/06/2023 PROFILE, FASTING (COMPREHENSIVE METABOLI C) 08/02/2024 FASTING BLOOD SUGAR (FBS, GLUCOSE) 06/06 HEMOGLOBIN A1C (GLYCOHEMOGLOBIN) 022 HEMOGLOBIN A1C (GLYCOHEMOGLOBIN) 023 LIPID PANEL 03/10/2023 LIPID PANEL 07/18/2022 LIPID PANEL 05/19/2021 TSH (THYROID STIMULATING HORMONE) 2024 PSA, TOTAL 06/06/2023 PSA, TOTAL 06/10/2024 PSA, TOTAL 05/23/2022 PSA, TOTAL 03/10/2023 PSA, TOTAL 10/24/2023 PSA, TOTAL 05/19/2021 CBC w DIFF 05/19/2021 CBC w DIFF 08/02/2024 CBC w DIFF 01/20/2025 CBC w DIFF 06/10/2024 CBC w DIFF 05/23/2022 CBC w DIFF 03/10/2023 CBC w DIFF 07/18/2022 CBC w DIFF 11/08/2024 SED RATE (ESR) 01/20/2025 CBC WITH AUTO DIFF 06/06/2023 CBC WITH AUTO DIFF 10/24/2023 Lipid Panel 10/24/2023 Lipid Panel 11/08/2024 Lipid Panel 08/02/2024 Lipid Panel 01/20/2025 Lipid Panel 06/10/2024 Vitamin D 25-OH Total 10/10/2024 Vitamin D 25-OH Total 11/08/2024 Vitamin D 25-OH Total 01/20/2025 Free T4 (Free Thyroxine) 01/20/2025 Microalbumin, Random 11/08/2024 Microalbumin, Random 07/18/2022 Hemoglobin A1c 08/02/2024 Hemoglobin A1c 11/08/2024 Next Appt Details Provider Name:Jonny Wells, 03/04/2025 03:30:00 PM, [address] [place] [address] [address], [place], [address], Provider Name:Jonny Wells, 06/16/2025 03:30:00 PM, [address] [place] [address] [address], [place], [address], Insurance Providers Payer Name Payer Address Payer Phone Subscriber Number Group Number Insured Name Patient Relationship to Insured Coverage Start Date Coverage End Date [facility] [address] [place], [place] [phone] [id number] Tal Marcum Self - patient is the [...] inguinal herniorrhaphy 1996 Hospitalization History Reason Date(Month/Year) [facility] for severe headache No history
[2025-01-27 06:37] LABS: MANUAL DIFF FLAG NO
[2025-01-27 07:50] LABS: Hematocrit 39.3 % (42.0-52.0); Hemoglobin 13.6 g/dl (14.0-18.0); Imm Gran Abs Auto 0.01 X10*3/uL (0.00-0.03); Imm Gran Pct Auto 0.2 % (0.0-0.4); Lymphocytes Absolute Auto 1.7 X10*3/uL (1.2-4.9); Mean Corpuscular HGB Conc 34.6 g/dl (31.0-36.0); Mean Corpuscular Hemoglobin 30.9 pg (27.0-33.0); Mean Corpuscular Volume 89.3 fL (80.0-98.0); NRBC Abs Auto 0.000 X10*3/uL (0.0-0.012); NRBC Pct Auto 0.0 /100WBC (0.0-0.2); Platelet Count 161 X10*3/uL (160-400); Red Blood Count 4.40 X10*6/uL (4.60-5.80); White Blood Count 6.2 X10*3/uL (4.8-10.8)
[2025-01-27 08:18] LABS: Alanine Aminotransferase 43 U/L (0-40); Albumin Level 4.2 g/dL (3.5-5.0); Alkaline Phosphatase 79 U/L (39-117); Anion Gap 9 (12-20); Aspartate Amino Transferase 25 U/L (5-37); Blood Urea Nitrogen 16 mg/dL (9-16); Calcium 9.4 mg/dL (8.4-10.2); Carbon Dioxide 28 mmol/L (22-29); Chloride 107 mmol/L (96-108); Cholesterol 114 mg/dL (<200); Estimated Glomerular Filt Rate > 60; HDL Cholesterol 48 mg/dL (>40); Potassium 4.4 mmol/L (3.3-5.1); Sodium 140 mmol/L (135-145); Total Protein 7.0 g/dL (6.5-8.0); Triglycerides 42 mg/dL (<150)
[2025-01-27 08:42] LABS: Free T4 (Free Thyroxine) 1.56 ng/dL (0.71-1.85); Thyroid Stimulating Hormone < 0.01 uIU/mL (0.32-4.0)
== END 2025-01-27 06:05 | disposition home or self-care (01) ==
LOC: HO.LAB 06:04
PROVIDERS: PCP Internal Medicine Medical Oncology; Visit Provider Internal Medicine Medical Oncology
DX: M19.90 Unspecified osteoarthritis, unspecified site (principal); R73.9 Hyperglycemia, unspecified; E55.9 Vitamin D deficiency, unspecified; E78.5 Hyperlipidemia, unspecified
CPT/HCPCS: 36415; 80053; 80061; 82306; 84439; 84443; 85025; 85652

== ENCOUNTER 2025-06-18 07:48 | Outpatient (REF) | payer BC, SELFPAY ==
--- OUTSIDE RECORDS SUMMARY | 2024-10-10 06:38 | XMS_ITS ---
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 Jonny Wells III Primary Care Provider REASON FOR VISIT Lab Request Social History Sex Assigned At : Social History Observation Description Sex Assigned At Male Encounters Encounter Location Date Provider Diagnosis Jonny Wells III, MD [address] [place] [address] [place] [address] 10/10/2024 Jonny Wells Vitamin D deficiency , unspecified E55.9 Assessments Encounter Date Diagnosis (ICD Code) Assessment Notes Treat ment Notes Treatment Clinical Notes 10/10/2024 Vitamin D deficiency, unspecified (ICD-10 - E55.9) Plan Of Treatment Pending Test Test Name Order Date Vitamin D 25-OH Total 10/10/2024 Next Appt Details Provider Name:Jonny Wells , 06/25/2025 10:45:00 AM, [address] [place] [address] [place], [address], Provider Name:Jonny Wells , 06/17/2026 03:30:00 PM, [address] [place] [address] [place], [address], Progress Notes * Tal MARCUMDOB:1960 (63 yo M)Acc No.[id number]:10/10/2024 Patient: aTl GARCIA :1960 A ge:63 Y S ex:Male Address:[address] [place] [address] [place], [place], [address] Subjective: * Chief Complaints: * L ab Request * Medical History: * Surgical History: * Hospitalization/Major Diagno stic Procedure: * Medications: Objective: * Vitals: * Physical Examination: Assessment: * Assessment: 1. V itamin D deficiency, unspecified - E55.9 Plan: * Treatment: * Procedure Codes: * true * Date: Generated for Adele ledesam/Elvi/Kentrellsmitting on: 07:54 AM EST
--- OUTSIDE RECORDS SUMMARY | 2024-11-01 12:30 | XMS_ITS ---
Author Organization Jonny Wells III, MD Address [address] [place] [address] [place] [address] Care Team Providers Care Account Services Manager Name Role Phone Dr. Jonny Wells III Primary Care Provider [phone] REASON FOR VISIT follow up Social History Sex Assigned At : Social History Observation Description Sex Assigned At Male Encounters Encounter Location Date Provider Diagnosis Jonny Wells III, MD [address] [place] [address] [place] [address] 11/01/2024 Jonny Wells Plan Of Treatment Next Appt Details Provider Name:Jonny Wells , 06/25/2025 10:45:00 AM, [address] [place] [address] [place], [address], Provider Name:Jonny Wells , 06/17/2026 03:30:00 PM, [address] [place] [address] [place], [address], Progress Notes * Tal MARCUMDOB:1960 (64 yo M)Acc No.[id number]:11/01/2024 Progress Notes Patient: Tal GARCIA Provider: Nitish Wells MD :1960 A ge:63 Y S ex:Male Date:11/01/2024 Address:[address] [place] [address] Subjective: * Chief Complaints: * 1 . Follow up. * Medical History: Objective: * Vitals: Assessment: Plan: * Treatment: * Images: * The named appointment provid er may or may not be the originator of this progress note, and it is not deemed complete until electronically signed by the appointment provider. Sign off status: Pending * Provider: Nitish Wells MD Date: 0 11/01/2024 Generated for Adele ledesma/Elvi/Trinity on: 1 07:54 AM EST
--- OUTSIDE RECORDS SUMMARY | 2024-11-08 10:30 | XMS_ITS ---
Author Organization Jonny Wells III, MD Address [address] [place] [address] [place] [address] Care Team Providers Care Mobile Pet Groomer Name Role Phone Dr. Jonny Wells III Primary Care Provider Allergies Allergen (clinical drug ingredient) Drug/Non Drug Allergy documented on EMR Reaction Allergy Type Onset Date Status meperidine Demerol Unknown Drug Allergy Active REASON FOR VISIT Hyperlipidemia, Sleep apnea, Osteoarthritis right shoulder, Obesity, Hypertension, Diabetes Medications Medication SIG (Take, Route, Frequency, Duration) Notes Start Date End Date Status Atorvastatin Calcium 10 MG 1 tablet Oral ly Once a day 06/27/2024 Active Folic Acid Active Vitamin D3 Active Artemus 3 Active Vitamin B Complex Ac tive Vitamin C Active Aspirin 325 MG 1 tablet Orally Once a day Active Ginkgo Biloba Active metFORMIN HCl 850 MG 1 tablet with a chantale l Orally Once a day 06/27/2024 Active Lisinopril 10 MG 1 tablet Orally Once a day 06/27/2024 Active Niacin Active Social History Tobacco Use: Social History Observation Description Date Details (start date - stop date) Former Smoker NA - NA Sex Assigned At : Social History Observation Description Sex Assigned At Male Tobacco Control (Standard) Question Answer Notes Tobacco use: Former smoker How long has it been since you last smoked? Jocelyne ter than 10 years Additional Findings: Tobacco non-user Ex-cigaret te smoker Vital Signs Temperature 97.9 degrees Fahrenheit 11/09/19 25 Blood pressure systolic 130 mm Hg 11/09/19 25 Blood pressure diastolic 69 mm Hg 025 Heart Rate 65 /min 11/08/2024 Height 73 in 11/08/2024 Weight 215 lbs 11/08/2024 BMI 28.36 kg/m2 11/08/2024 Encounters Encounter Location Date Provider Diagnosis Jonny Wells III, MD [address] [place] [address] [place] [id number] 11/08/2024 Jonny Wells DM (diabetes mellitu s) E11.9 ; Former smoker Z87.891 ; Sleep apnea, unspecified type G47.30 ; Hyperlipidemia, unspecified hyperlipidemia type E78.5 ; Osteoarthritis, unspecified osteoarthritis type, unspecified site M19.90 ; Right anterior shoulder pain M25.511 ; BPH (benign prostatic hyperplasia) N40.0 and Vitamin D deficiency, unspecified E55.9 Assessments Encounter Date Diagnosis (ICD Code) Assessment Notes Treat ment Notes Treatment Clinical Notes 11/08/2024 DM (diabetes mellitus) (ICD-10 - E11.9) He has been compliant with his metformin. His glucose fasting was 155. At home his glucose is between 69 and 1:30. He has lost 12 pounds. His A1c has fallen from 7.4 to 5.7.No changes in his medication were made today. 11/08/2024 Former smoker (ICD-1 0 - Z87.891) He is highly motivated not to smoke and has not smoked for 20 years. We devised a plan to prevent relapse in times of stress and illness. 11/08/2024 Sleep apnea, unspecified type (ICD-10 - G47.30) He has a CPAP machine that is now functioning. He is using it every night. 11/08/2024 Hyperlipidemia, unspecified hyperlipidemia type (ICD-10 - E78.5) He has had no side effects from the statin medication. A comprehensive fasting lipid profile has been ordered to be done with a database prior to his next visit. 11/08/2024 Osteoarthritis, unspecified osteoarthritis type, unspecified site (ICD-10 - M19.90) He was referred to [place] [facility] for evaluation and treatment of his right shoulder pain. 11/08/2024 Right anterior shoulder pain (ICD-10 - M25.511) This pain has resolved. 11/08/2024 BPH (benign prostati c hyperplasia) (ICD-10 - N40.0) He arises from sleep once or twice a night. Once again, we discussed lifestyle modification as a way to reduce nocturia. 11/08/2024 Vitamin D deficiency , unspecified (ICD-10 - E55.9) He continues on his supplement. His vitamin D level is in the normal range. Plan Of Treatment Medication Medication Name Sig Start Date Stop Date Notes Atorvastatin Calcium 10 MG 1 tablet Orally Once a day 02/2025 Folic Acid Vitamin D3 Artemus 3 Vitamin B Complex Vitamin C Aspirin 325 MG 1 tablet Orally Once a day Ginkgo Biloba metFORMIN HCl 850 MG 1 tablet with a chantale l Orally Once a day 06/27/2024 Lisinopril 10 MG 1 tablet Orally Once a day 06/27/2024 Niacin Pending Test Test Name Order Date PROFILE, FASTING (COMPREHENSIVE METABOLI C) 11/08/2024 CBC w DIFF 11/08/2024 Lipid Panel 11/08/2024 Vitamin D 25-OH Total 11/08/2024 Microalbumin, Random 11/08/2024 Hemoglobin A1c 11/08/2024 Next Appt Details Follow Up: 4 Months, Reason: OV Provider Name:Jonny Wells , 06/25/2025 10:45:00 AM, [address] [place] [address] [address], [place], [address], Provider Name:Jonny Wells , 06/17/2026 03:30:00 PM, [address] [place] [address] [address], [place], [address], Progress Notes * KEANUJOHN TalDOB:1960 (63 yo M)Acc No.[id number]:11/08/2024 Progress Notes Patient: Tal GARCIA Provider: Nitish Wells MD :1960 A ge:63 Y S ex:Male Date:11/08/2024 Address:[address] [place] [address] [id number] Subjective: * Chief Complaints: * H yperlipidemiaSleep apneaOsteoarthritis right shoulderObesityHypertensionDiabetes * HPI: C OVID-19 Screening: Ruba mayers returns to the office for management of multiple medical issues. He recently saw his pulmonary physician for sleep apnea, Dr. Gary, who helped him find a more comfortable CPAP mask. He has noted a chalazion on his left lower eyelid. We discussed the treatment of this.? It was moderate in size. He says he is doing much better than during the winter. His right shoulder is feeling better. He has lost weight. His fasting glucose has been between 109 and 130 9 in the morning. He has been compliant with all of his medications. He has had no bleeding chest pain shortness of breath nausea vomiting or diarrhea. Questions H ave you had any new onset fever, chills, cough, congestion, sore throat, shortness of breath, muscle aches? N o * ROS: G eneral/Constitutional: pain A nterior right shoulder, otherwise only normal aches and pains. C hills d enies. F atigue a dmits. F ever d enies. ? E NT: Decreased hearing d enies. R espiratory: Cough d enies. C ardiovascular: Chest pain with exertion d enies. D yspnea on exertion?denies. S hortness of breath d enies. G astrointestinal: Constipation d enies. D ecreased appetite d enies.?Diarrhea d enies. H eartburn d enies. N ausea d enies. R ectal bleeding?denies. V omiting d enies. H ematology: bruising d enies. p etechiae d enies. S wollen glands n one have been noted. G enitourinary: Frequent urination o nce a night. M usculoskeletal: Muscle aches d enies. P ainful joints R ight shoulder. S ciatica d enies. W eakness d enies. S kin: Itching d enies. R leonard d enies. S kin lesion(s)?denies. N eurologic: Difficulty speaking d enies. D izziness d enies.?Headache d enies. L ow back pain d enies. P sychiatric: Depressed mood d enies. * Medical History: * Surgical History: L eft inguinal herniorrhaphy 1996Colonoscopy 2012Nasal septoplasty 2006Sinus marcel- Dr. Beyer 2020No history * Hospitalization/Major Diagno stic Procedure: N o history [facility] for severe headache * Family History: F ather: 51 yrs, emphysema, coronary artery disease, myocardial infarction, coronary artery bypass surgery, alcohol use, diagnosed with Cancer. M other: 83 yrs, lung cancer, diagnosed with Cancer. C josefina: alive. S demar: alive. 1 brother(s) , 2 sister(s) . 1 son(s) , 1 daughter(s) - healthy. . His brother is hypertensive. One of his [...] any inherited cancer family syndrome. * Social History: T obacco Use: T obacco Control (Standard) T obacco use: F ormer smoker H ow long has it been since you last smoked??Greater than 10 years A dditional Findings: Tobacco non-user E x-cigarette smoker Ruba mayers has been to Sara for 23 years. He is a of the [employer]. He stopped smoking 20 years ago. He works for [employer] and has no toxic exposures. He has 2 children, a son [place], and a daughter, Monika Barnard. He has 8 healthy grandchildren Exercise: Diet: Occasional diarrhea from certain foods Work environment: Alcohol: Advised to limit consumption Living situation: Staying home for Vince, cooking for everyone Smoking: No. * Medications: T akingVitamin D3 Folic Acid Vitamin B Complex Artemus 3 Niacin Vitamin C Ginkgo Biloba Aspirin 325 MG Tablet 1 tablet Orally Once a day metFORMIN HCl 850 MG Tablet 1 tablet with a meal Orally Once a day Lisinopril 10 MG Tablet 1 tablet Orally Once a day Atorvastatin Calcium 10 MG Tablet 1 tablet Orally Once a day Medication List reviewed and reconciled with the patientTaking Vitamin D3 Taking Folic Acid Taking Vitamin B Complex Taking Artemus 3 Taking Niacin Taking Vitamin C Taking Ginkgo Biloba Taking Aspirin 325 MG Tablet 1 tablet Orally Once a day Taking metFORMIN HCl 850 MG Tablet 1 tablet with a meal Orally Once a day Taking Lisinopril 10 MG Tablet 1 tablet Orally Once a day Taking Atorvastatin Calcium 10 MG Tablet 1 tablet Orally Once a day Medication List reviewed and reconciled with the patient * Allergies: Susan mcmillan[Allergies Verified] Objective: * Vitals: H t: 73, Wt: 215, BMI:28.36, BP: 130/69, HR: 65, Temp: 97.9, Ht-cm: 185.42, Wt-k.52. * P ast Orders: Lab:[facility]jandrina Bustamante Ender l Fast * Collection Date 11/05/2024 05/28/2022 06/18/2021 Collection Time 08:18 AM 07:41 AM 09:04 AM Order Date 11/05/2024 05/28/2022 06/18/2021 Sodium 138 (Ref Range: 135-145 mmol/L) 139 (Ref Range: 135-145 mmol/L) 138 (Ref Range: 135-145 mmol/L) Bilirubin Total 0.6 (Ref Range: 0.0-1.0 mg/dL) 0.6 (Ref Range: 0.0-1.0 mg/dL) 0.5 (Ref Range: 0.0-1.0 mg/dL) Aspartate Amino Transferase 25 (Ref Range: 5-37 U/L) 20 (Ref Range: 5-37 U/L) 24 (Ref Range: 5-37 U/L) Alanine Aminotransferase 41 H (Ref Range: 0-40 U/L) 30 (Ref Range: 0-40 U/L) 37 (Ref Range: 0-40 U/L) Total Protein 7.2 (Ref Range: 6.5-8.0 g/dL) 7.0 (Ref Range: 6.5-8.0 g/dL) 7.3 (Ref Range: 6.5-8.0 g/dL) Albumin Level 4.1 (Ref Range: 3.5-5.0 g/dL) 4.1 (Ref Range: 3.5-5.0 g/dL) 4.1 (Ref Range: 3.5-5.0 g/dL) Alkaline Phosphatase 80 (Ref Range: 39-117 U/L) 99 (Ref Range: 39-117 U/L) 77 (Ref Range: 39-117 U/L) Potassium 4.6 (Ref Range: 3.3-5.1 mmol/L) 4.6 (Ref Range: 3.3-5.1 mmol/L) 4.3 (Ref Range: 3.3-5.1 mmol/L) Chloride 104 (Ref Range: 96-108 mmol/L) 103 (Ref Range: 96-108 mmol/L) 104 (Ref Range: 96-108 mmol/L) Carbon Dioxide 26 (Ref Range: 22-29 mmol/L) 28 (Ref Range: 22-29 mmol/L) 27 (Ref Range: 22-29 mmol/L) Anion Gap 13 (Ref Range: 12-20) 13 (Ref Range: 12-20) 11 L (Ref Range: 12-20) Blood Urea Nitrogen 16 (Ref Range: 9-16 mg/dL) 13 (Ref Range: 9-16 mg/dL) 13 (Ref Range: 9-16 mg/dL) Creatinine 0.66 (Ref Range: 0.5-1.4 mg/dL) 0.85 (Ref Range: 0.5-1.4 mg/dL) 0.83 (Ref Range: 0.5-1.4 mg/dL) Estimated Glomerular Filt Rate > 60 > 60 > 60 Glucose Fasting 117 H (Ref Range: 60-99 mg/dL) 155 H (Ref Range: 60-99 mg/dL) 136 H (Ref Range: 60-99 mg/dL) Calcium 9.8 (Ref Range: 8.4-10.2 mg/dL) 10.0 (Ref Range: 8.4-10.2 mg/dL) 9.4 (Ref Range: 8.4-10.2 mg/dL) * Lab:Lipid Panel * Collection Date 11/05/2024 06/10/2023 10/08/2022 Collection Time 08:18 AM 10:01 AM 08:58 AM Order Date 11/05/2024 06/06/2023 10/08/2022 Triglycerides 42 (Ref Range: <150 mg/dL) 78 (Ref Range: <150 mg/dL) 68 (Ref Range: mg/dL) Cholesterol 104 (Ref Range: <200 mg/dL) 162 (Ref Range: <200 mg/dL) 168 (Ref Range: mg/dL) LDL Cholesterol Calculated 55 (Ref Range: <100 mg/dL) 105 H (Ref Range: <100 mg/dL) 116 (Ref Range: mg/dl) HDL Cholesterol 41 (Ref Range: >40 mg/dL) 42 (Ref Range: >40 mg/dL) 39 (Ref Range: mg/dL) ???Lab:Vitamin D 25-OH Total (Order Date - 11/05/2024) (Collection Date & Time - 11/05/2024 08:18 AM)?ValueReference Range?Vitamin D 25-OH Total 69.0>30 - ng/mL * Lab:Hemoglobin A1c * Collection Date 11/05/2024 10/08/2022 Collection Time 08:18 AM 08:58 AM Order Date 11/05/2024 10/08/2022 Hemoglobin A1c % 5.7 (Ref Range: <6.0 %) 7.4 (Ref Range: %) Estimated Average Glucose 117 (Ref Range: mg/dL) 166 (Ref Range: mg/dL) * Lab:Complete Blood Count Aut o Diff * Collection Date 11/05/2024 06/10/2023 10/08/2022 Collection Time 08:18 AM 10:01 AM 08:58 AM Order Date 11/05/2024 06/10/2023 10/08/2022 White Blood Count 5.8 (Ref Range: 4.8-10.8 X10*3/uL) 6.4 (Ref Range: 4.8-10.8 X10*3/uL) 5.9 (Ref Range: 4.8-10.8 X10*3/uL) Red Blood Count 4.30 L (Ref Range: 4.60-5.80 X10*6/uL) 4.81 (Ref Range: 4.60-5.80 X10*6/uL) 4.90 (Ref Range: 4.60-5.80 X10*6/uL) Hemoglobin 13.1 L (Ref Range: 14.0-18.0 g/dl) 14.4 (Ref Range: 14.0-18.0 g/dl) 14.4 (Ref Range: 14.0-18.0 g/dl) Hematocrit 38.3 L (Ref Range: 42.0-52.0 %) 42.3 (Ref Range: 42.0-52.0 %) 42.1 (Ref Range: 42.0-52.0 %) Mean Corpuscular Volume 89.1 (Ref Range: 80.0-98.0 fL) 87.9 (Ref Range: 80.0-98.0 fL) 85.9 (Ref Range: 80.0-98.0 fL) Mean Corpuscular Hemoglobin 30.5 (Ref Range: 27.0-33.0 pg) 29.9 (Ref Range: 27.0-33.0 pg) 29.4 (Ref Range: 27.0-33.0 pg) Mean Corpuscular HGB Conc 34.2 (Ref Range: 31.0-36.0 g/dl) 34.0 (Ref Range: 31.0-36.0 g/dl) 34.2 (Ref Range: 31.0-36.0 g/dl) Red Cell Distribution Width 12.0 (Ref Range: 11.0-16.0 %) 11.9 (Ref Range: 11.0-16.0 %) 12.4 (Ref Range: 11.0-16.0 %) Platelet Count 172 (Ref Range: 160-400 X10*3/uL) 185 (Ref Range: 160-400 X10*3/uL) 216 (Ref Range: 160-400 X10*3/uL) Mean Platelet Volume 10.7 (Ref Range: 9.4-12.4 fL) 11.4 (Ref Range: 9.4-12.4 fL) 10.8 (Ref Range: 9.4-12.4 fL) Neutrophils Percent Auto 57.6 (Ref Range: 45-73 %) 54.1 (Ref Range: 45-73 %) 50.7 (Ref Range: 45-73 %) Imm Gran Pct Auto 0.3 (Ref Range: 0.0-0.4 %) 0.2 (Ref Range: 0.0-0.4 %) 0.2 (Ref Range: 0.0-0.4 %) Lymphocytes Percent Auto 23.3 (Ref Range: 20-40 %) 27.0 (Ref Range: 20-40 %) 30.1 (Ref Range: 20-40 %) Monocytes Percent Auto 13.2 H (Ref Range: 2-11 %) 12.7 H (Ref Range: 2-11 %) 12.9 H (Ref Range: 2-11 %) Eosinophils Percent Auto 4.9 H (Ref Range: 0-4 %) 4.9 H (Ref Range: 0-4 %) 4.9 H (Ref Range: 0-4 %) Basophils Percent Auto 0.7 (Ref Range: 0-2 %) 1.1 (Ref Range: 0-2 %) 1.2 (Ref Range: 0-2 %) NRBC Pct Auto 0.0 (Ref Range: 0.0-0.2 /100WBC) 0.0 (Ref Range: 0.0-0.2 /100WBC) 0.0 (Ref Range: 0.0-0.2 /100WBC) Neutrophils Absolute Auto 3.3 (Ref Range: 2.0-8.3 x10*3/uL) 3.4 (Ref Range: 2.0-8.3 x10*3/uL) 3.0 (Ref Range: 2.0-8.3 x10*3/uL) Imm Gran Abs Auto 0.02 (Ref Range: 0.00-0.03 X10*3/uL) 0.01 (Ref Range: 0.00-0.03 X10*3/uL) 0.01 (Ref Range: 0.00-0.03 X10*3/uL) Lymphocytes Absolute Auto 1.3 (Ref Range: 1.2-4.9 X10*3/uL) 1.7 (Ref Range: 1.2-4.9 X10*3/uL) 1.8 (Ref Range: 1.2-4.9 X10*3/uL) Monocytes Absolute Auto 0.8 (Ref Range: 0.1-1.2 X10*3/uL) 0.8 (Ref Range: 0.1-1.2 X10*3/uL) 0.8 (Ref Range: 0.1-1.2 X10*3/uL) Eosinophils Absolute Auto 0.3 (Ref Range: 0.0-0.4 X10*3/uL) 0.3 (Ref Range: 0.0-0.4 X10*3/uL) 0.3 (Ref Range: 0.0-0.4 X10*3/uL) Basophils Absolute Auto 0.0 (Ref Range: 0.0-0.2 X10*3/uL) 0.1 (Ref Range: 0.0-0.2 X10*3/uL) 0.1 (Ref Range: 0.0-0.2 X10*3/uL) NRBC Abs Auto 0.000 (Ref Range: 0.0-0.012 X10*3/uL) 0.000 (Ref Range: 0.0-0.012 X10*3/uL) 0.000 (Ref Range: 0.0-0.012 X10*3/uL) * Examination: G eneral Examination: GENERAL APPEARANCE: p thania, well nourished, well developed, in no acute distress, calm and relaxed, overweight, man. HEAD: a traumatic, normocephalic. EYES: e na, perrla, anicteric, conjugate. EARS: n ormal. NOSE: s eptum intact. ORAL CAVITY: n ormal, unremarkable. NECK/THYROID: n o jugular venous distention, no carotid bruit, thyroid normal. LYMPH NODES: n o enlarged lymph nodes,spleen normal. SKIN: n o suspicious lesions, anicteric. HEART: n o clicks, gallops, murmurs, or rubs, regular rhythm, S1, S2 normal, no s3, or vascular bruits. LUNGS: g ood air movement, no wheezes, rales, rhonchi, diminished breath sounds throughout. BREASTS: no masses palpable bilaterally. ABDOMEN: b owel sounds normal, no ascites, no organomegaly, no mass. RECTAL EXAM: n ot examined. MUSCULOSKELETAL: e xtremities unremarkable, no clubbing, cyanosis or edema. PERIPHERAL PULSES: n ormal. NEUROLOGIC: a lert and oriented, cranial nerves 2-12 grossly intact, deep tendon reflexes 2+ symmetrical, motor strength normal upper and lower extremities, sensory exam intact. PSYCH: a lert, oriented. Assessment: * Assessment: 1. D M (diabetes mellitus) - E11.9 (Primary) N otes :He has been compliant with his metformin. His glucose fasting was 155. At home his glucose is between 69 and 1:30. He has lost 12 pounds. His A1c has fallen from 7.4 to 5.7.No changes in his medication were made today. 2 . F ormer smoker - Z87.891 N otes :He is highly motivated not to smoke and has not smoked for 20 years. We devised a plan to prevent relapse in times of stress and illness. 3 . S leep apnea, unspecified type - G47.30 N otes :He has a CPAP machine that is now functioning. He is using it every night. 4 . H yperlipidemia, unspecified hyperlipidemia type - E78.5 N otes :He has had no side effects from the statin medication. A comprehensive fasting lipid profile has been ordered to be done with a database prior to his next visit. 5 . O steoarthritis, unspecified osteoarthritis type, unspecified site - M19.90 N otes :He was referred to [place] [facility] for evaluation and treatment of his right shoulder pain. 6 . R ight anterior shoulder pain - M25.511 N otes :This pain has resolved. 7 . B PH (benign prostatic hyperplasia) - N40.0 N otes :He arises from sleep once or twice a night. Once again, we discussed lifestyle modification as a way to reduce nocturia. 8 . V itamin D deficiency, unspecified - E55.9 N otes :He continues on his supplement. His vitamin D level is in the normal range. Plan: * Treatment: 2. H yperlipidemia, unspecified hyperlipidemia type L AB: PROFILE, FASTING (COMPREHENSIVE METABOLIC) L AB: CBC w DIFF L AB: Lipid Panel L AB: Vitamin D 25-OH Total L AB: Microalbumin, Random L AB: Hemoglobin A1c 3. B PH (benign prostatic hyperplasia) L AB: PROFILE, FASTING (COMPREHENSIVE METABOLIC) L AB: CBC w DIFF L AB: Lipid Panel L AB: Vitamin D 25-OH Total L AB: Microalbumin, Random L AB: Hemoglobin A1c 4. V itamin D deficiency, unspecified L AB: Vitamin D 25-OH Total 5. O thers Continue Vitamin D3; C ontinue Folic Acid; C ontinue Vitamin B Complex; C ontinue Artemus 3; C ontinue Niacin; C ontinue Vitamin C; C ontinue Ginkgo Biloba; C ontinue Aspirin Tablet, 325 MG, 1 tablet, Orally, Once a day; C ontinue metFORMIN HCl Tablet, 850 MG, 1 tablet with a meal, Orally, Once a day; C ontinue Lisinopril Tablet, 10 MG, 1 tablet, Orally, Once a day; C ontinue Atorvastatin Calcium Tablet, 10 MG, 1 tablet, Orally, Once a day. * Procedure Codes: * Preventive Medicine: Counseling: C are goal follow-up plan: Counseling for abnormal BMI given Y es Above Normal BMI Follow-up D ietary management education, guidance, and counseling, Dietary needs education, Exercise promotion: strength training, Exercise promotion: stretching, Feeding regime, Giving encouragement to exercise, Lifestyle education regarding diet, Nutrition / feeding management, Nutrition therapy, Prescribed activity/exercise education, Prescribed diet education, Prescribed dietary intake, Special diet education, Weight monitoring , Intervention, Order not done: Medical or Other reason not done S moking/Tobacco Use Patient counseled on the dangers of tobacco use and urged to quit. 0 11/08/2024 DM Care Plan: P atient Lifestyle Goals P atient wants to be able to manage diabetes without too much effort. T reatment Goals H bA1C < 7.0, Blood Sugars less than < 115. B arriers n o barriers. S elf-Managment Goals W ork on weight loss, with a goal of losing 1 lb per week. * Follow Up: 4 Months (Reason: OV) * Images: * Sign off status: Completed true * Provider: Nitish Wells MD Date: 0 11/08/2024 Generated for Adele ledesma/Elvi/eTransmitting on: 1 07:53 AM EST History and Physical Notes * HPI (History [...] normal, no s3, or vascular bruits LUNGS: good air movement, n o wheezes, rales, rhonchi, diminished breath sounds throughout ABDOMEN: bowel sounds normal, no ascites, no organomegaly, no mass NEUROLOGIC: alert and oriented, cranial nerves 2-12 grossly intact, deep tendon reflexes 2+ symmetrical, motor strength normal upper and lower extremities, sensory exam intact SKIN: no suspicious lesion s, anicteric PERIPHERAL PULSES: normal BREASTS: no masses palpable b ilaterally MUSCULOSKELETAL: extremities unremark able, no clubbing, cyanosis or edema LYMPH NODES: no enlarged lymph no pari,spleen normal RECTAL EXAM: not examined PSYCH: alert, oriented ORAL CAVITY: normal, unremarkable
--- OUTSIDE RECORDS SUMMARY | 2025-01-20 10:30 | XMS_ITS ---
Author Organization Jonny Wells III, MD Address [address] [place] [address] [place] [address] Care Team Providers Care [employer] Supervisor Name Role Phone Dr. Jonny Wells III Primary Care Provider Allergies Allergen (clinical drug ingredient) Drug/Non Drug Allergy documented on EMR Reaction Allergy Type Onset Date Status meperidine Demerol Unknown Drug Allergy Active Results Component Value Reference Range Notes Lipid Panel Reviewed date:03/04/2025 03:26:39 PM Interpretation: Performing Lab:[facility], [address] [place] [id number] Notes/Report: Triglycerides 42 <150 mg/dL Desirable Triglyceride: less than 150 mg/dL Borderline High Triglyceride 150-199 mg/dL High Triglyceride: 200-499 mg/dL Very High Triglyceride: greater than or equal to 5OO mg/dL Cholesterol 114 <200 mg/dL Desirable Cholesterol: less than 200 mg/dL Borderline High Cholesterol: 200-239 mg/dL High Cholesterol: greater than 239 mg/dL LDL Cholesterol Calculated 58 <100 mg/dL Desirable LDL: less than 100 mg/dL Near Optimal/Above Optimal LDL: 110-129 mg/dL Borderline High LDL: 130-159 mg/dL High LDL: 160-189 mg/dL Very High LDL: greater than or equal to 190 mg/dL HDL Cholesterol 48 >40 mg/dL Desirable HDL: greater than 40 mg/dL Note: This HDL assay may give artificially low results in patients with liver disease. Vitamin D 25-OH Total Reviewed date:03/04/2025 03:26:39 PM Interpretation: Performing Lab:[facility], [address] [place] [id number] Notes/Report: Vitamin D 25-OH Total 58.9 >30 ng/mL Health Based Reference Values* < 20 ng/mL Deficient 20-30 ng/mL Insufficient > 30 ng/mL Sufficient *Devin VENTURA. N Engl J Med. 2007;357:266-280 There is no well-established upper level of normal vitamin D levels. Some laboratories use 50 ng/mL as an upper limit of normal. However, toxicity is patient-dependent and may occur at any level. Careful correlation with the patient's presentation is necessary and, if there is concern for vitamin D toxicity, treatment should be considered irrespective of the serum level. Care must be taken in interpreting Vitamin D results from different laboratories and methodologies. Published data demonstrated that results from patients undergoing hemodialysis may show a negative bias when tested with various automated 25-OH vitamin D assays when compared to LC-MS/MS. When testing samples from patients whose predominant form of Vitamin D is Vitamin D2, such as patients receiving Vitamin D2 supplementation, results that are subtherapeutic should be confirmed with another method such as LC-MS/MS. Free T4 (Free Thyroxine) Reviewed date:03/04/2025 03:26:39 PM Interpretation: Performing Lab:[facility], [address] [place] [phone] Notes/Report: Free T4 (Free Thyroxine) 1.56 0.71-1.85 ng/dL REASON FOR VISIT Tremor, Sleep apnea, Hyperlipidemia, Right shoulder pain, Obesity, Diabetes benign prostatic hypertrophy, Hypertension, diabetes Medications Medication SIG (Take, Route, Frequency, Duration) Notes Start Date End Date Status Aspirin 325 MG 1 tablet Orally Once a day Active metFORMIN HCl 850 MG 1 tablet with a chantale l Orally Once a day 06/27/2024 Active Lisinopril 10 MG 1 tablet Orally Once a day 06/27/2024 Active Atorvastatin Calcium 10 MG 1 tablet Oral ly Once a day 06/27/2024 Active Ginkgo Biloba Active Leeton 3 Active Niacin Active Vitamin C Active Vitamin B Complex Ac tive Folic Acid Active Vitamin D3 Active Social History Tobacco Use: Social History [...] Additional Findings: Tobacco non-user Ex-cigaret te smoker Problems Problem Type SNOMED Code ICD Code Onset Dates Problem Status W/U Status Risk Notes Problem 273504909 Essential tremor (G25.0) Active confirmed There was very little tremor visible today. He says it is intermittent . It will be observed at this time. A metabolic profilee will be ordered. At this time I found no sign of Parkinson's Problem [id number] Overweight (E66.3) Active confirmed He has lost 6 pounds since his last visit. We discussed diet and nutrition and made her weight loss strategy. Vital Signs Temperature 98.4 degrees Fahrenheit 01/21/20 25 Blood pressure systolic 130 mm Hg 01/21/20 25 Blood pressure diastolic 71 mm Hg 025 Heart Rate 74 /min 01/20/2025 Height 73 in 01/20/2025 Weight 209 lbs 01/20/2025 BMI 27.57 kg/m2 01/20/2025 Encounters Encounter Location Date Provider Diagnosis Jonny Wells III, MD [address] [place] [address] [place] [address] 01/20/2025 Jonny Wells Hyperlipidemia, unspecified hyperlipidemia type E78.5 ; Essential tremor G25.0 ; Sleep apnea, unspecified type G47.30 ; Osteoarthritis, unspecified osteoarthritis type, unspecified site M19.90 ; Right anterior shoulder pain M25.511 ; Former smoker Z87.891 ; BPH (benign prostatic hyperplasia) N40.0 ; Essential hypertension I10 ; Type 2 diabetes mellitus without complication, without long-term current use of insulin E11.9 and Overweight E66.3 Assessments Encounter Date Diagnosis (ICD Code) Assessment Notes Treat ment Notes Treatment Clinical Notes 01/20/2025 Hyperlipidemia, unspecified hyperlipidemia type (ICD-10 - E78.5) Comprehensive blood work or the fasting lipid profile has been ordered. 01/20/2025 Essential tremor (ICD-10 - G25.0) There was very little tremor visible today. He says it is intermittent. It will be observed at this time. A metabolic profilee will be ordered. At this time I found no sign of Parkinson's 01/20/2025 Sleep apnea, unspecified type (ICD-10 - G47.30) He has a CPAP machine that is now functioning. He is using it every night. 01/20/2025 Osteoarthritis, unspecified osteoarthritis type, unspecified site (ICD-10 - M19.90) He was referred to [facility] for evaluation and treatment of his right shoulder pain. 01/20/2025 Right anterior shoulder pain (ICD-10 - M25.511) This pain has resolved. 01/20/2025 Former smoker (ICD-1 0 - Z87.891) He is highly motivated not to smoke and has not smoked for 20 years. We devised a plan to prevent relapse in times of stress and illness. 01/20/2025 BPH (benign prostati c hyperplasia) (ICD-10 - N40.0) He arises from sleep once or twice a night. Once again, we discussed lifestyle modification as a way to reduce nocturia. 01/20/2025 Essential hypertension (ICD-10 - I10) He was begun on 10 mg of lisinopril daily. 01/20/2025 Type 2 diabetes mellitus without complication, without long-term current use of insulin (ICD-10 - E11.9) He is toleratingHis medications without difficulty. I have ordered comprehensive blood work to include fasting lipids kidney function and fasting lipids. 01/20/2025 Overweight (ICD-10 - E66.3) He has lost 6 pounds since his last visit. We discussed diet and nutrition and made her weight loss strategy. Plan Of Treatment Medication Medication Name Sig Start Date Stop Date Notes Aspirin 325 MG 1 tablet Orally Once a day metFORMIN HCl 850 MG 1 tablet with a chantale l Orally Once a day 06/27/2024 Lisinopril 10 MG 1 tablet Orally Once a day 06/27/2024 Atorvastatin Calcium 10 MG 1 tablet Orally Once a day 02/2025 Ginkgo Biloba Leeton 3 Niacin Vitamin C Vitamin B Complex Folic Acid Vitamin D3 Pending Test Test Name Order Date PROFILE, FASTING (COMPREHENSIVE METABOLI C) 01/20/2025 TSH (THYROID STIMULATING HORMONE) 2024 CBC w DIFF 01/20/2025 SED RATE (ESR) 01/20/2025 Next Appt Details Follow Up: 3 Weeks, Reason: ov Provider Name:Jonny Wells , 06/25/2025 10:45:00 AM, [address] [place] [address] , [facility] [address], [place], [address], Provider Name:Jonny Wells , 06/17/2026 03:30:00 PM, [address] [place] [address] [facility] [place], [facility] [phone], Progress Notes * Tal MARCUMDOB:1960 (64 yo M)Acc No.[id number]:01/20/2025 Progress Notes Patient: Tal GARCIA Provider: Nitish Wells MD :1960 A ge:64 Y S ex:Male Date:01/20/2025 Address:[address] [place], [place] [id number] Subjective: * Chief Complaints: * T remorSleep apneaHyperlipidemiaRight shoulder painObesityDiabetes benign prostatic hypertrophyHypertensionDiabetes * HPI: C OVID-19 Screening: He comes in today at the request of his spouse who has noticed that he has developed bilateral intermittent tremor of the hands. He feels quite well. He has been compliant with all of his medication and is taking no new ones. He has had no trauma or other neurological symptoms.? He sleeps well and his appetite is good. He has had no apraxias. He has no difficulty with gait or ataxia. There was a mild tremor of his right thumb today consistent with an essential tremor. Comprehensive blood work was ordered to evaluate him metabolically. His thyroid functions will be checked. History indicates he is not consuming large amounts of caffeine. No evidence for Parkinson's disease was found. If the problem persists and the blood work is normal I will have him see neurology if he wishes. Questions H ave you had any new onset fever, chills, cough, congestion, sore throat, shortness of breath, muscle aches? N o * ROS: G eneral/Constitutional: pain o nly normal aches and pains. C hills d enies.?Fatigue a dmits. F ever d enies. E NT: Decreased hearing d enies. R espiratory: Cough d enies. C ardiovascular: Chest pain with exertion d enies. D yspnea on exertion?denies. S hortness of breath d enies. G astrointestinal: Constipation o ccasional. D ecreased appetite d enies. D iarrhea d enies. H eartburn o ccasional. N ausea d enies. R ectal bleeding d enies. V omiting d enies. H ematology: bruising d enies. p etechiae d enies. S wollen glands n one have been noted. G enitourinary: Frequent urination o nce a night. M usculoskeletal: Muscle aches d enies. P ainful joints d enies. S ciatica d enies. W eakness d enies. S kin: Itching d enies. R leonard d enies. S kin lesion(s)?denies. N eurologic: Difficulty speaking d enies. D izziness d enies.?Headache d enies. L ow back pain d enies. P sychiatric: Depressed mood d enies. * Medical History: * Surgical History: L eft inguinal herniorrhaphy 1996Colonoscopy 2012Nasal septoplasty 2006Sinus lift- Dr. Beyer 2020No history * Hospitalization/Major Diagno stic Procedure: N o history [facility] for severe headache * Family History: F ather: 51 yrs, emphysema, coronary artery disease, myocardial infarction, coronary artery bypass surgery, alcohol use, diagnosed with Cancer. M other: 83 yrs, lung cancer, diagnosed with Cancer. C hildren: alive. S ibchris: alive. 1 brother(s) , 2 sister(s) . [...] Findings: Tobacco non-user E x-cigarette smoker Ruba espinoza has been to [place] for 23 years. He is a of the [place]. He stopped smoking 20 years ago. He works for [employer] and has no toxic exposures. He has 2 children, a son [place], and a daughter, Monika Barnard. He has 8 healthy grandchildren Exercise: Diet: Occasional diarrhea from certain foods Work environment: Alcohol: Advised to limit consumption Living situation: Staying home for [employer], cooking for everyone Smoking: No. * Medications: T akingVitamin D3 Folic Acid Vitamin B Complex Leeton 3 Niacin Vitamin C Ginkgo Biloba Aspirin [...] Folic Acid Taking Vitamin B Complex Taking Leeton 3 Taking Niacin Taking Vitamin C Taking [...] Objective: * Vitals: H t: 73, Wt: 209, BMI:27.57, BP: 130/71, HR: 74, Temp: 98.4, Ht-cm: 185.42, Wt-k.8. * Examination: G eneral Examination: GENERAL APPEARANCE: p leasant, well nourished, well developed, in no acute distress, calm and relaxed: overweight: man. HEAD: a traumatic, normocephalic. EYES: e [...] normal, no s3, or vascular bruits. LUNGS: c lear to auscultation . BREASTS: no masses palpable bilaterally. ABDOMEN: b owel sounds normal, no ascites, no organomegaly, no mass: overweight. RECTAL EXAM: n ot examined. MUSCULOSKELETAL: e xtremities unremarkable, no clubbing, cyanosis or edema, Mild pain right shoulder to elevation. PERIPHERAL PULSES: n ormal. NEUROLOGIC: a lert and oriented, cranial nerves 2-12 grossly intact, deep tendon reflexes 2+ symmetrical, motor strength normal upper and lower extremities, sensory exam intact, Mild resting tremor right thumb. PSYCH: a lert, oriented. Assessment: * Assessment: 1. E ssential tremor - G25.0 (Primary) N otes :There was very little tremor visible today. He says it is intermittent. It will be observed at this time. A metabolic profilee will be ordered. At this time I found no sign of Parkinson's 2 . H yperlipidemia, unspecified hyperlipidemia type - E78.5 N otes :Comprehensive blood work or the fasting lipid profile has been ordered. 3 . S leep apnea, unspecified type - G47.30 N otes :He has a CPAP machine that is now functioning. He is using it every night. 4 . O steoarthritis, unspecified osteoarthritis type, unspecified site - M19.90 N otes :He was referred to [facility] for evaluation and treatment of his right shoulder pain. 5 . R ight anterior shoulder pain - M25.511 N otes :This pain has resolved. 6 . F ormer smoker - Z87.891 N otes :He is highly motivated not to smoke and has not smoked for 20 years. We devised a plan to prevent relapse in times of stress and illness. 7 . B PH (benign prostatic hyperplasia) - N40.0 N otes :He arises from sleep once or twice a night. Once again, we discussed lifestyle modification as a way to reduce nocturia. 8 . E ssential hypertension - I10 N otes :He was begun on 10 mg of lisinopril daily. 9 . T ype 2 diabetes mellitus without complication, without long-term current use of insulin - E11.9 N otes :He is toleratingHis medications without difficulty. I have ordered comprehensive blood work to include fasting lipids kidney function and fasting lipids. 1 0. O verweight - E66.3 N otes :He has lost 6 pounds since his last visit. We discussed diet and nutrition and made her weight loss strategy. Plan: * Treatment: 2. O steoarthritis, unspecified osteoarthritis type, unspecified site L AB: PROFILE, FASTING (COMPREHENSIVE METABOLIC) L AB: TSH (THYROID STIMULATING HORMONE) L AB: CBC w DIFF L AB: SED RATE (ESR) L AB: Lipid Panel L AB: Vitamin D 25-OH Total L AB: Free T4 (Free Thyroxine) 3. O thers Continue Vitamin D3; C ontinue Folic Acid; C ontinue Vitamin B Complex; C ontinue Leeton 3; C ontinue Niacin; C ontinue Vitamin [...] tobacco use and urged to quit. 0 01/20/2025 DM Care Plan: P atient Lifestyle Goals P atient wants to be able to manage diabetes without too much effort. T reatment Goals B lood Sugars less than < 115, HbA1C < 7.0. B arriers n o barriers. S elf-Managment Goals W ork on weight loss, with a goal of losing 1 lb per week, Take blood sugars twice daily and keep a log. Bring log in to next appointment. * Follow Up: 3 Weeks (Reason: ov) * Images: * Sign off status: Completed true * Provider: Nitish Wells MD Date: 0 01/20/2025 Generated for Adele ledesma/Elvi/Trinity on: 07:54 AM EST History and Physical Notes * HPI (History of Present Illness) Category Sub-Category Detail Notes COVID-19 Screening Questions Have you had any new onset fever, chills, cough, congestion, sore throat, shortness of breath, muscle aches?: No Examination Category Sub-Category Detail Notes General Examination GENERAL APPEARANCE: pleasant , well nourished, well developed, in no acute distress, calm and relaxed: overweight: man HEAD: atraumatic, normocep halic EYES: eomi, perrla, anicte deneen, conjugate EARS: normal NOSE: septum intact NECK/THYROID: no jugular venous di stention, no carotid bruit, thyroid normal HEART: no clicks, gallops, murmurs, or rubs, regular rhythm, S1, S2 normal, no s3, or vascular bruits LUNGS: clear to auscultatio n ABDOMEN: bowel sounds normal, no ascites, no organomegaly, no mass: overweight NEUROLOGIC: alert and oriented, cranial nerves 2-12 grossly intact, deep tendon reflexes 2+ symmetrical, motor strength normal upper and lower extremities, sensory exam intact, Mild resting tremor right thumb SKIN: no suspicious lesion s, anicteric PERIPHERAL PULSES: normal BREASTS: no masses palpable b ilaterally MUSCULOSKELETAL: extremities unremark able, no clubbing, cyanosis or edema, Mild pain right shoulder to elevation LYMPH NODES: no enlarged lymph no pari,spleen normal RECTAL EXAM: not examined PSYCH: alert, oriented ORAL CAVITY: normal, unremarkable
--- OUTSIDE RECORDS SUMMARY | 2025-01-27 12:45 | XMS_ITS ---
Author Organization Jonny Wells III, MD Address [address] [place] [address] Care Team Providers Care [place] Supervisor Name Role Phone Dr. Jonny Wells III Primary Care Provider REASON FOR VISIT Telehealth Social History Sex Assigned At : Social History Observation Description Sex Assigned At Male Encounters Encounter Location Date Provider Diagnosis Jonny Wells III, MD [address] [place] [address] [place] [address] 01/27/2025 Jonny Wells Plan Of Treatment Next Appt Details Provider Name:Jonny Wells , 06/25/2025 10:45:00 AM, [address] [place] [address] [place], [address], Provider Name:Jonny Wells , 06/17/2026 03:30:00 PM, [address] [place] [address] [place], [address], Progress Notes * Tal MARCUMDOB:1960 (64 yo M)Acc No.[id number]:01/27/2025 Patient: Tal GARCIA Provider: Nitish Wells MD :1960 A ge:64 Y S ex:Male Date:01/27/2025 Address:[address] [place] [address] [place], [place]-[id number] Subjective: * Chief Complaints: * 1 . Telehealth. * Medical History: Objective: * Vitals: Assessment: Plan: * Treatment: * Images: * The named appointment provid er may or may not be the originator of this progress note, and it is not deemed complete until electronically signed by the appointment provider. Sign off status: Pending * Provider: Nitish Wells MD Date: 0 01/27/2025 Generated for Adele ledesma/Elvi/Trinity on: 1 07:53 AM EST
--- OUTSIDE RECORDS SUMMARY | 2025-01-29 08:45 | XMS_ITS ---
Author Organization Jonny Wells III, MD Address [address] [place] [address] Care Team Providers Care Senior Systems Architect Name Role Phone Dr. Jonny Wells III Primary Care Provider REASON FOR VISIT Telehealth Medications Medication SIG (Take, Route, Frequency, Duration) Notes Start Date End Date Status Lisinopril 10 MG 1 tablet Orally Once a day 06/27/2024 Active metFORMIN HCl 850 MG 1 tablet with a chantale l Orally Once a day 06/27/2024 Active Vitamin D3 Active Atorvastatin Calcium 10 MG 1 tablet Oral ly Once a day 06/27/2024 Active Aspirin 325 MG 1 tablet Orally Once a day Active Vitamin C Active Vitamin B Complex Ac tive Niacin Active [place] 3 Active Ginkgo Biloba Active Folic Acid Active Social History Sex Assigned At : Social History Observation Description Sex Assigned At Male Encounters Encounter Location Date Provider Diagnosis Jonny Wells III, MD [address] [place] [address] [place] [address] 01/29/2025 Jonny Wells Plan Of Treatment Next Appt Details Provider Name:Jonny Wells , 06/25/2025 10:45:00 AM, [address] [place] [address] [place], [address], Provider Name:Jonny Wells , 06/17/2026 03:30:00 PM, [address] [place] [address] [place], [address], Progress Notes * Tal MARCUMDOB:1960 (64 yo M)Acc No.[id number]:01/29/2025 Patient: Tal GARCIA Provider: Nitish Wells MD :1960 A ge:64 Y S ex:Male Date:01/29/2025 Address:[address] [place], [place] [phone] Subjective: * Chief Complaints: * 1 . Telehealth. * Medical History: * Medications: T aking Vitamin D3 , Taking Folic Acid , Taking Vitamin B Complex , Taking [place] 3 , Taking Niacin , Taking Vitamin C , Taking Ginkgo Biloba , Taking Aspirin 325 MG Tablet 1 tablet Orally Once a day , Taking metFORMIN HCl 850 MG Tablet 1 tablet with a meal Orally Once a day , Taking Lisinopril 10 MG Tablet 1 tablet Orally Once a day , Taking Atorvastatin Calcium 10 MG Tablet 1 tablet Orally Once a day Objective: * Vitals: Assessment: Plan: * Treatment: * Images: * The named appointment provid er may or may not be the originator of this progress note, and it is not deemed complete until electronically signed by the appointment provider. Sign off status: Pending * Provider: Nitish Wells MD Date: 0 01/29/2025 Generated for Adele ledesma/Elvi/Trinity on: 1 07:54 AM EST
--- OUTSIDE RECORDS SUMMARY | 2025-01-29 08:57 | XMS_ITS ---
Author Organization Jonny Wells III, MD Address [address] [place] [address] [place] [address] Care Team Providers Care Digital Forensics Investigator Name Role Phone Dr. Jonny Wells III Primary Care Provider [phone] REASON FOR VISIT told patient to call Social History Sex Assigned At : Social History Observation Description Sex Assigned At Male Encounters Encounter Location Date Provider Diagnosis Jonny Wells III, MD [address] [place] [address] [place] [address] 01/29/2025 Jonny Wells Plan Of Treatment Next Appt Details Provider Name:Jonny Wells , 06/25/2025 10:45:00 AM, [address] [place] [address] [place], [address], Provider Name:Jonny Wells , 06/17/2026 03:30:00 PM, [address] [place] [address] [place], [address], Progress Notes * Tal MARCUMDOB:1960 (64 yo M)Acc No.[id number]:01/29/2025 Patient: Tal GARCIA :1960 A ge:64 Y S ex:Male Address:[address] [place], [place] [address], * true * Date: Generated for Printi ng/Faredg/eTransmitting on: 07:54 AM EST
--- OUTSIDE RECORDS SUMMARY | 2025-03-04 10:30 | XMS_ITS ---
Author Organization Jonny Wells III, MD Address [address] [place] [address] [place] [address] Care Team Providers Care Cotton Feeder Name Role Phone Dr. Jonny Wells III Primary Care Provider Allergies Allergen (clinical drug ingredient) Drug/Non Drug Allergy documented on EMR Reaction Allergy Type Onset Date Status meperidine Demerol Unknown Drug Allergy Active REASON FOR VISIT Sleep apnea, Hyperlipidemia, Arthritis right shoulder, Obesity, Benign prostatic hypertrrophy, Diabetes, Overweight Medications Medication SIG (Take, Route, Frequency, Duration) Notes Start Date End Date Status Niacin Active [place] 3 Active Vitamin B Complex Ac tive Folic Acid Active Vitamin D3 Active Lisinopril 10 MG 1 tablet Orally Once a day 06/27/2024 Active metFORMIN HCl 850 MG 1 tablet with a chantale l Orally Once a day 06/27/2024 Active Aspirin 325 MG 1 tablet Orally Once a day Active Ginkgo Biloba Active Atorvastatin Calcium 10 MG 1 tablet Oral ly Once a day 06/27/2024 Active Vitamin C Active Social History Tobacco Use: Social History [...] non-user Ex-cigaret te smoker Vital Signs Temperature 98.6 degrees Fahrenheit 03/04/20 25 Blood pressure systolic 132 mm Hg 03/04/20 25 Blood pressure diastolic 61 mm Hg 025 Heart Rate 76 /min 03/04/2025 Height 73 in 03/04/2025 Weight 211 lbs 03/04/2025 BMI 27.84 kg/m2 03/04/2025 Encounters Encounter Location Date Provider Diagnosis Jonny Wells III, MD [address] [place] [address] [place] [id number] 03/04/2025 Jonny Wells BPH (benign prostati c hyperplasia) N40.0 ; Sleep apnea, unspecified type G47.30 ; Hyperlipidemia, unspecified hyperlipidemia type E78.5 ; Hyperglycemia R73.9 ; Transient ischemia I99.8 ; Right anterior shoulder pain M25.511 and Former smoker Z87.891 Assessments Encounter Date Diagnosis (ICD Code) Assessment Notes Treat ment Notes Treatment Clinical Notes 03/04/2025 BPH (benign prostati c hyperplasia) (ICD-10 - N40.0) He reports that his nocturia has resolved 03/04/2025 Sleep apnea, unspecified type (ICD-10 - G47.30) He has stopped using his CPAP as he says he no longer needs it. 03/04/2025 Hyperlipidemia, unspecified hyperlipidemia type (ICD-10 - E78.5) His lipids have been stable and he has lost substantial weight. 03/04/2025 Hyperglycemia (ICD-1 0 - R73.9) His fasting glucose is now 117, which is in the prediabetic range. He is losing weight regularly and substantially. This is likely to normalize without medication. 03/04/2025 Transient ischemia (ICD-10 - I99.8) He has had no further neurological episode since his last visit. 03/04/2025 Right anterior shoulder pain (ICD-10 - M25.511) This pain has resolved. 03/04/2025 Former smoker (ICD-1 0 - Z87.891) He is highly motivated not to smoke and has not smoked for 20 years. We devised a plan to prevent relapse in times of stress and illness. Plan Of Treatment Medication Medication Name Sig Start Date Stop Date Notes Niacin [place] 3 Vitamin B Complex Folic Acid Vitamin D3 Lisinopril 10 MG 1 tablet Orally Once a day 06/27/2024 metFORMIN HCl 850 MG 1 tablet with a chantale l Orally Once a day 06/27/2024 Aspirin 325 MG 1 tablet Orally Once a day Ginkgo Biloba Atorvastatin Calcium 10 MG 1 tablet Orally Once a day 02/2025 Vitamin C Pending Test Test Name Order Date PROFILE, FASTING (COMPREHENSIVE METABOLI C) 03/04/2025 TSH (THYROID STIMULATING HORMONE) 2024 PSA, TOTAL 03/04/2025 CBC w DIFF 03/04/2025 Lipid Panel 03/04/2025 Free T4 (Free Thyroxine) 03/04/2025 Next Appt Details Follow Up: 3 Months, Reason: ov review labs Provider Name:Jonny Mayers Wells , 06/25/2025 10:45:00 AM, [address] [place] [address] [address], [place], [address], Provider Name:Jonny Mayers Russell , 06/17/2026 03:30:00 PM, [address] [place] [address] [address], [place], [phone], Progress Notes * Tal MARCUMDOB:1960 (64 yo M)Acc No.[id number]:03/04/2025 Progress Notes Patient: Tal GARCIA Provider: Nitish Wells MD :1960 A ge:64 Y S ex:Male Date:03/04/2025 Address:[address] [place], [place] [address] [id number] Subjective: * Chief Complaints: * S leep apneaHyperlipidemiaArthritis right shoulderObesityBenign prostatic hypertrrophyDiabetesOverweight * HPI: C OVID-19 Screening: Ruba mayers returns for a scheduled visit for medical management.He has lost substantial weight and no longer uses his CPAP machine. He has no symptoms of sleep apnea during the day. He has lost over 60 pounds. He has no nocturia. His vision remains stable. He has been compliant with all of his medications. Questions H ave you had any new onset fever, chills, cough, congestion, sore throat, shortness of breath, muscle aches? N o * ROS: G eneral/Constitutional: pain R ight shoulder with elevation. C hills d enies. F atigue a dmits. F ever d enies. E NT: Decreased hearing d enies. R espiratory: Cough d enies. C ardiovascular: Chest pain with exertion d enies. D yspnea on exertion?denies. S hortness of breath d enies. G astrointestinal: Constipation o ccasional. D ecreased appetite d enies. D iarrhea d enies. H eartburn d enies. N ausea d enies. R ectal bleeding d enies. V omiting d enies. H ematology: bruising d enies. p etechiae d enies. S wollen glands n one have been noted. G enitourinary: Frequent urination N o longer has nocturia. ? M usculoskeletal: Muscle aches d enies. P [...] L eft inguinal herniorrhaphy 1996Colonoscopy 2012Nasal septoplasty 2007Sinus lift- Dr. Beyer 2020No history * Hospitalization/Major Diagno stic Procedure: N o history [facility] for severe headache * Family History: F ather: 51 yrs, emphysema, coronary artery disease, myocardial infarction, coronary artery bypass surgery, alcohol use, diagnosed with Cancer. M other: 83 yrs, lung cancer, diagnosed with Cancer. C hildren: alive. S iblings: alive. 1 brother(s) , 2 sister(s) . [...] 23 years. He is a of the [employer]. He stopped smoking 20 years ago. He works for [employer] and has no toxic exposures. He has 2 children, a son [place], and a daughter, Monika Barnard. He has 8 healthy grandchildren Exercise: Diet: Occasional diarrhea from certain foods Work environment: Alcohol: Advised to limit consumption Living situation: Staying home for [place], cooking for everyone Smoking: No. * Medications: T akingVitamin D3 Folic Acid Vitamin B Complex [place] 3 Niacin Vitamin C Ginkgo Biloba Aspirin [...] Folic Acid Taking Vitamin B Complex Taking [place] 3 Taking Niacin Taking Vitamin C Taking [...] Objective: * Vitals: H t: 73, Wt: 211, BMI:27.84, BP: 132/61, HR: 76, Temp: 98.6, Ht-cm: 185.42, Wt-k.71. * P ast Orders: Lab:Comprehensive Maria Ines. Ender l Fast * Collection Date 01/27/2025 11/05/2024 05/28/2022 Collection Time 06:27 AM 08:18 AM 07:41 AM Order Date 01/27/2025 11/05/2024 05/28/2022 Sodium 140 (Ref Range: 135-145 mmol/L) 138 (Ref Range: 135-145 mmol/L) 139 (Ref Range: 135-145 mmol/L) Bilirubin Total 0.4 (Ref Range: 0.0-1.0 mg/dL) 0.6 (Ref Range: 0.0-1.0 mg/dL) 0.6 (Ref Range: 0.0-1.0 mg/dL) Aspartate Amino Transferase 25 (Ref Range: 5-37 U/L) 25 (Ref Range: 5-37 U/L) 20 (Ref Range: 5-37 U/L) Alanine Aminotransferase 43 H (Ref Range: 0-40 U/L) 41 H (Ref Range: 0-40 U/L) 30 (Ref Range: 0-40 U/L) Total Protein 7.0 (Ref Range: 6.5-8.0 g/dL) 7.2 (Ref Range: 6.5-8.0 g/dL) 7.0 (Ref Range: 6.5-8.0 g/dL) Albumin Level 4.2 (Ref Range: 3.5-5.0 g/dL) 4.1 (Ref Range: 3.5-5.0 g/dL) 4.1 (Ref Range: 3.5-5.0 g/dL) Alkaline Phosphatase 79 (Ref Range: 39-117 U/L) 80 (Ref Range: 39-117 U/L) 99 (Ref Range: 39-117 U/L) Potassium 4.4 (Ref Range: 3.3-5.1 mmol/L) 4.6 (Ref Range: 3.3-5.1 mmol/L) 4.6 (Ref Range: 3.3-5.1 mmol/L) Chloride 107 (Ref Range: 96-108 mmol/L) 104 (Ref Range: 96-108 mmol/L) 103 (Ref Range: 96-108 mmol/L) Carbon Dioxide 28 (Ref Range: 22-29 mmol/L) 26 (Ref Range: 22-29 mmol/L) 28 (Ref Range: 22-29 mmol/L) Anion Gap 9 L (Ref Range: 12-20) 13 (Ref Range: 12-20) 13 (Ref Range: 12-20) Blood Urea Nitrogen 16 (Ref Range: 9-16 mg/dL) 16 (Ref Range: 9-16 mg/dL) 13 (Ref Range: 9-16 mg/dL) Creatinine 0.63 (Ref Range: 0.5-1.4 mg/dL) 0.66 (Ref Range: 0.5-1.4 mg/dL) 0.85 (Ref Range: 0.5-1.4 mg/dL) Estimated Glomerular Filt Rate > 60 > 60 > 60 Glucose Fasting 117 H (Ref Range: 60-99 mg/dL) 117 H (Ref Range: 60-99 mg/dL) 155 H (Ref Range: 60-99 mg/dL) Calcium 9.4 (Ref Range: 8.4-10.2 mg/dL) 9.8 (Ref Range: 8.4-10.2 mg/dL) 10.0 (Ref Range: 8.4-10.2 mg/dL) * Lab:Lipid Panel * Collection Date 01/27/2025 11/05/2024 06/10/2023 Collection Time 06:27 AM 08:18 AM 10:01 AM Order Date 01/20/2025 11/05/2024 06/06/2023 Triglycerides 42 (Ref Range: <150 mg/dL) 42 (Ref Range: <150 mg/dL) 78 (Ref Range: <150 mg/dL) Cholesterol 114 (Ref Range: <200 mg/dL) 104 (Ref Range: <200 mg/dL) 162 (Ref Range: <200 mg/dL) LDL Cholesterol Calculated 58 (Ref Range: <100 mg/dL) 55 (Ref Range: <100 mg/dL) 105 H (Ref Range: <100 mg/dL) HDL Cholesterol 48 (Ref Range: >40 mg/dL) 41 (Ref Range: >40 mg/dL) 42 (Ref Range: >40 mg/dL) ???Lab:Thyroid Stimulating Hormone (Order Date - 01/27/2025) (Collection Date & Time - 01/27/2025 06:27 AM)?ValueReference Range?Thyroid Stimulating Hormone< 0.01L0.32-4.0 - uIU/mL * Lab:Vitamin D 25-OH Total * Collection Date 01/27/2025 11/05/2024 Collection Time 06:27 AM 08:18 AM Order Date 01/20/2025 11/05/2024 Vitamin D 25-OH Total 58.9 (Ref Range: >30 ng/mL) 69.0 (Ref Range: >30 ng/mL) ???Lab:Free T4 (Free Thyroxine) (Order Date - 01/20/2025) (Collection Date & Time - 01/27/2025 06:27 AM)?ValueReference Range?Free T4 (Free Thyroxine)1.560.71-1.85 - ng/dL * Lab:Complete Blood Count Aut o Diff * Collection Date 01/27/2025 11/05/2024 06/10/2023 Collection Time 06:27 AM 08:18 AM 10:01 AM Order Date 01/27/2025 11/05/2024 06/10/2023 White Blood Count 6.2 (Ref Range: 4.8-10.8 X10*3/uL) 5.8 (Ref Range: 4.8-10.8 X10*3/uL) 6.4 (Ref Range: 4.8-10.8 X10*3/uL) Red Blood Count 4.40 L (Ref Range: 4.60-5.80 X10*6/uL) 4.30 L (Ref Range: 4.60-5.80 X10*6/uL) 4.81 (Ref Range: 4.60-5.80 X10*6/uL) Hemoglobin 13.6 L (Ref Range: 14.0-18.0 g/dl) 13.1 L (Ref Range: 14.0-18.0 g/dl) 14.4 (Ref Range: 14.0-18.0 g/dl) Hematocrit 39.3 L (Ref Range: 42.0-52.0 %) 38.3 L (Ref Range: 42.0-52.0 %) 42.3 (Ref Range: 42.0-52.0 %) Mean Corpuscular Volume 89.3 (Ref Range: 80.0-98.0 fL) 89.1 (Ref Range: 80.0-98.0 fL) 87.9 (Ref Range: 80.0-98.0 fL) Mean Corpuscular Hemoglobin 30.9 (Ref Range: 27.0-33.0 pg) 30.5 (Ref Range: 27.0-33.0 pg) 29.9 (Ref Range: 27.0-33.0 pg) Mean Corpuscular HGB Conc 34.6 (Ref Range: 31.0-36.0 g/dl) 34.2 (Ref Range: 31.0-36.0 g/dl) 34.0 (Ref Range: 31.0-36.0 g/dl) Red Cell Distribution Width 11.9 (Ref Range: 11.0-16.0 %) 12.0 (Ref Range: 11.0-16.0 %) 11.9 (Ref Range: 11.0-16.0 %) Platelet Count 161 (Ref Range: 160-400 X10*3/uL) 172 (Ref Range: 160-400 X10*3/uL) 185 (Ref Range: 160-400 X10*3/uL) Mean Platelet Volume 11.2 (Ref Range: 9.4-12.4 fL) 10.7 (Ref Range: 9.4-12.4 fL) 11.4 (Ref Range: 9.4-12.4 fL) Neutrophils Percent Auto 48.8 (Ref Range: 45-73 %) 57.6 (Ref Range: 45-73 %) 54.1 (Ref Range: 45-73 %) Imm Gran Pct Auto 0.2 (Ref Range: 0.0-0.4 %) 0.3 (Ref Range: 0.0-0.4 %) 0.2 (Ref Range: 0.0-0.4 %) Lymphocytes Percent Auto 27.6 (Ref Range: 20-40 %) 23.3 (Ref Range: 20-40 %) 27.0 (Ref Range: 20-40 %) Monocytes Percent Auto 11.8 H (Ref Range: 2-11 %) 13.2 H (Ref Range: 2-11 %) 12.7 H (Ref Range: 2-11 %) Eosinophils Percent Auto 10.5 H (Ref Range: 0-4 %) 4.9 H (Ref Range: 0-4 %) 4.9 H (Ref Range: 0-4 %) Basophils Percent Auto 1.1 (Ref Range: 0-2 %) 0.7 (Ref Range: 0-2 %) 1.1 (Ref Range: 0-2 %) NRBC Pct Auto 0.0 (Ref Range: 0.0-0.2 /100WBC) 0.0 (Ref Range: 0.0-0.2 /100WBC) 0.0 (Ref Range: 0.0-0.2 /100WBC) Neutrophils Absolute Auto 3.0 (Ref Range: 2.0-8.3 x10*3/uL) 3.3 (Ref Range: 2.0-8.3 x10*3/uL) 3.4 (Ref Range: 2.0-8.3 x10*3/uL) Imm Gran Abs Auto 0.01 (Ref Range: 0.00-0.03 X10*3/uL) 0.02 (Ref Range: 0.00-0.03 X10*3/uL) 0.01 (Ref Range: 0.00-0.03 X10*3/uL) Lymphocytes Absolute Auto 1.7 (Ref Range: 1.2-4.9 X10*3/uL) 1.3 (Ref Range: 1.2-4.9 X10*3/uL) 1.7 (Ref Range: 1.2-4.9 X10*3/uL) Monocytes Absolute Auto 0.7 (Ref Range: 0.1-1.2 X10*3/uL) 0.8 (Ref Range: 0.1-1.2 X10*3/uL) 0.8 (Ref Range: 0.1-1.2 X10*3/uL) Eosinophils Absolute Auto 0.7 H (Ref Range: 0.0-0.4 X10*3/uL) 0.3 (Ref Range: 0.0-0.4 X10*3/uL) 0.3 (Ref Range: 0.0-0.4 X10*3/uL) Basophils Absolute Auto 0.1 (Ref Range: 0.0-0.2 X10*3/uL) 0.0 (Ref Range: 0.0-0.2 X10*3/uL) 0.1 (Ref Range: 0.0-0.2 X10*3/uL) NRBC Abs Auto 0.000 (Ref Range: 0.0-0.012 X10*3/uL) 0.000 (Ref Range: 0.0-0.012 X10*3/uL) 0.000 (Ref Range: 0.0-0.012 X10*3/uL) ???Lab:Erythrocyte Sedimentation Rate (Order Date - 01/27/2025) (Collection Date & Time - 01/27/2025 06:27 AM)?ValueReference Range?Erythrocyte Sedimentation Pprd94X1-29 - MM/HR * Examination: G eneral Examination: GENERAL APPEARANCE: [...] a lert, oriented. Assessment: * Assessment: 1. S leep apnea, unspecified type - G47.30 (Primary) N otes :He has stopped using his CPAP as he says he no longer needs it. 2 . B PH (benign prostatic hyperplasia) - N40.0 N otes :He reports that his nocturia has resolved 3 . H yperlipidemia, unspecified hyperlipidemia type - E78.5 N otes :His lipids have been stable and he has lost substantial weight. 4 . H yperglycemia - R73.9 N otes :His fasting glucose is now 117, which is in the prediabetic range. He is losing weight regularly and substantially. This is likely to normalize without medication. 5 . T ransient ischemia - I99.8 N otes :He has had no further neurological episode since his last visit. 6 . R ight anterior shoulder pain - M25.511 N otes :This pain has resolved. 7 . F ormer smoker - Z87.891 N otes :He is highly motivated not to smoke and has not smoked for 20 years. We devised a plan to prevent relapse in times of stress and illness. Plan: * Treatment: 2. H yperlipidemia, unspecified hyperlipidemia type L AB: PROFILE, FASTING (COMPREHENSIVE METABOLIC) L AB: TSH (THYROID STIMULATING HORMONE) L AB: PSA, TOTAL L AB: CBC w DIFF L AB: Lipid Panel L AB: Free T4 (Free Thyroxine) 3. H yperglycemia L AB: PROFILE, FASTING (COMPREHENSIVE METABOLIC) L AB: TSH (THYROID STIMULATING HORMONE) L AB: PSA, TOTAL L AB: CBC w DIFF L AB: Lipid Panel L AB: Free T4 (Free Thyroxine) 4. T ransient ischemia L AB: PROFILE, FASTING (COMPREHENSIVE METABOLIC) L AB: TSH (THYROID STIMULATING HORMONE) L AB: PSA, TOTAL L AB: CBC w DIFF L AB: Lipid Panel L AB: Free T4 (Free Thyroxine) 5. O thers Continue Vitamin D3; C ontinue Folic Acid; C ontinue Vitamin B Complex; C ontinue [place] 3; C ontinue Niacin; C ontinue Vitamin [...] tobacco use and urged to quit. 0 03/04/2025 * Follow Up: 3 Months (Reason: ov review labs) * Images: * Sign off status: Completed true * Provider: Nitish Wells MD Date: 0 03/04/2025 Generated for Adele ledesma/Elvi/Trinity on: 07:53 AM EST History and Physical Notes [...]
--- OUTSIDE RECORDS SUMMARY | 2025-03-05 05:16 | XMS_ITS ---
Author Organization Jonny Wells III, MD Address [address] [place] [address] Care Team Providers Care Cutter And Edge Trimmer Name Role Phone Dr. Jonny Wells III Primary Care Provider REASON FOR VISIT retinal specialist Social History Sex Assigned At : Social History Observation Description Sex Assigned At Male Encounters Encounter Location Date Provider Diagnosis Jonny Wells III, MD [address] [place] [address] [place] [address] 03/05/2025 Jonny Wells Plan Of Treatment Next Appt Details Provider Name:Jonny Wells , 06/25/2025 10:45:00 AM, [address] [place] [address] [place], [address], Provider Name:Jonny Wells , 06/17/2026 03:30:00 PM, [address] [place] [address] [place], [address], Progress Notes * Tal MARCUMDOB:1960 (64 yo M)Acc No.[id number]:03/05/2025 Patient: Tal GARCIA :1960 A ge:64 Y S ex:Male Address:[address] [place], [place] [address], * true * Date: Generated for Printi ng/Faxing/eTransmitting on: 07:53 AM EST
--- OUTSIDE RECORDS SUMMARY | 2025-06-16 10:30 | XMS_ITS ---
Author Organization Jonny Wells III, MD Address [address] [place] [address] Care Team Providers Care Outsewer Name Role Phone Dr. Jonny Wells III Primary Care Provider Allergies Allergen (clinical drug ingredient) Drug/Non Drug Allergy documented on EMR Reaction Allergy Type Onset Date Status No Known Food Allergy Unknown Drug Allergy Active meperidine Demerol Unknown Drug Allergy Active REASON FOR VISIT Annual Exam Medications Medication SIG (Take, Route, Frequency, Duration) Notes Start Date End Date Status Vitamin B Complex Ac tive Vitamin D3 Active Lisinopril 10 MG 1 tablet Orally Once a day 06/27/2024 Active metFORMIN HCl 850 MG 1 tablet with a chantale l Orally Once a day 06/27/2024 Active Atorvastatin Calcium 10 MG 1 tablet Oral ly Once a day 06/27/2024 Active Social History [...] Answer Notes Did you have a drink contain ing alcohol in the past year? Yes How often did you have six o r more drinks on one occasion in the past year? 2 to 4 times a month (2 points) How many drinks did you have on a typical day when you were drinking in the past year? 1 or 2 drinks (0 point) How often did you have a dri nk containing alcohol in the past year? Never (0 point) Points 2 Interpretation Negative Problems Problem Type SNOMED Code ICD Code Onset Dates Problem Status W/U Status Risk Notes Problem [id number] Hyperthyroidism (E05.90) Active confirmed It is suspected that he has T3 hyperthyroidism as the TSH is not detectable and his free T4 level is in the normal range. Thyroid function test are pending backspace. Vital Signs Temperature 99.5 degrees Fahrenheit 06/16/20 25 Blood pressure systolic 124 mm Hg 06/16/20 25 Blood pressure diastolic 73 mm Hg 025 Heart Rate 80 /min 06/16/2025 Height 73 in 06/16/2025 Weight 207 lbs 06/16/2025 BMI 27.31 kg/m2 06/16/2025 Encounters Encounter Location Date Provider Diagnosis Jonny Wells III, MD [address] [place] [address] [place] [address] 06/16/2025 Jonny Wells Hyperthyroidism E05. 90 ; Former smoker Z87.891 ; Overweight E66.3 ; Right anterior shoulder pain M25.511 ; Osteoarthritis, unspecified osteoarthritis type, unspecified site M19.90 ; Hyperlipidemia, unspecified hyperlipidemia type E78.5 ; Sleep apnea, unspecified type G47.30 ; Essential tremor G25.0 ; Vitamin D deficiency, unspecified E55.9 and Type 2 diabetes mellitus without complication, without long-term current use of insulin E11.9 Assessments Encounter Date Diagnosis (ICD Code) Assessment Notes T reatment Notes Treatment Clinical Notes 06/16/2025 Hyperthyroidism (ICD-10 - E05.90) It is suspected that he has T3 hyperthyroidism as the TSH is not detectable and his free T4 level is in the normal range. Thyroid function test are pending backspace. 06/16/2025 Former smoker (ICD-1 0 - Z87.891) He is highly motivated not to smoke and has not smoked for 20 years. We devised a plan to prevent relapse in times of stress and illness. 06/16/2025 Overweight (ICD-10 - E66.3) He has lost 6 pounds since his last visit. We discussed diet and nutrition and made her weight loss strategy. 06/16/2025 Right anterior shoulder pain (ICD-10 - M25.511) This pain has resolved. 06/16/2025 Osteoarthritis, unspecified osteoarthritis type, unspecified site (ICD-10 - M19.90) He was referred to [place] [facility] for evaluation and treatment of his right shoulder pain. 06/16/2025 Hyperlipidemia, unspecified hyperlipidemia type (ICD-10 - E78.5) His lipids have been stable and he has lost substantial weight. 06/16/2025 Sleep apnea, unspecified type (ICD-10 - G47.30) He has stopped using his CPAP as he says he no longer needs it. 06/16/2025 Essential tremor (ICD-10 - G25.0) There was very little tremor visible today. He says it is intermittent. It will be observed at this time. A metabolic profilee will be ordered. At this time I found no sign of Parkinson's 06/16/2025 Vitamin D deficiency , unspecified (ICD-10 - E55.9) He continues on his supplement. His vitamin D level is in the normal range. 06/16/2025 Type 2 diabetes mellitus without complication, without long-term current use of insulin (ICD-10 - E11.9) He is tolerating his medications without difficulty. I have ordered comprehensive blood work to include fasting lipids kidney function and fasting lipids. Plan Of Treatment Medication Medication Name Sig Start Date Stop Date Notes Vitamin B Complex Vitamin D3 Lisinopril 10 MG 1 tablet Orally Once a day 06/27/2024 metFORMIN HCl 850 MG 1 tablet with a chantale l Orally Once a day 06/27/2024 Atorvastatin Calcium 10 MG 1 tablet Orally Once a day 02/2025 Pending Test Test Name Order Date PROFILE, FASTING (COMPREHENSIVE METABOLI C) 06/16/2025 TSH (THYROID STIMULATING HORMONE) 2024 FREE T3 (FT3) 06/16/2025 Lipid Panel 06/16/2025 Free T4 (Free Thyroxine) 06/16/2025 Hemoglobin A1c 06/16/2025 Next Appt Details Follow Up: 1 Week, Reason: T [facility] Provider Name:Jonny Wells , 06/25/2025 10:45:00 AM, [address] [place] [address] [address], [place], [address], Provider Name:Jonny Wells , 06/17/2026 03:30:00 PM, [address] [place] [address] [address], [place], [address], Progress Notes * Tal MARCUMDOB:1960 (64 yo M)Acc No.[id number]:06/16/2025 Progress Notes Patient: Tal GARCIA Provider: Nitish Wells MD :1960 A ge:64 Y S ex:Male Date:06/16/2025 Address:[address] [place], [place] [id number] Subjective: * Chief Complaints: * A nnual Exam * HPI: D epression Screening: Ruba espinoza returns to the office for ongoing evaluation of weight loss. He has lost another 4 pounds since his last visit. His TSH was zero but his free T4 was in the normal range. He has a slight tremor and has a very good appetite. It is a good story for hyperthyroidism. We have ordered repeat TSH and free T4 as well as a T3. He will continue to pursue a good healthy diet. His weight remains in the overweight range. PHQ-9 L ittle interest or pleasure in doing things?Not at all F eeling down, depressed, or hopeless N ot at all T rouble falling or staying asleep, or sleeping too much N ot at all F eeling tired or having little energy N ot at all P oor appetite or overeating N ot at all F eeling bad about yourself or that you are a failure, or have let yourself or your family down N ot at all T rouble concentrating on things, such as reading the newspaper or watching television N ot at all M oving or speaking so slowly that other people could have noticed; or the opposite, being so fidgety or restless that you have been moving around a lot more than usual N ot at all T houghts that you would be better off or of hurting yourself in some way N ot at all T otal Score 0 C OVID-19 Screening: Questions H ave you had any new onset fever, chills, cough, congestion, sore throat, shortness of breath, muscle aches? N o S CORA Questions: SDOH Questions I n the past year have you been worried about losing your housing? N o I n the past year have you or any family members you live with been unable to get any of the following when it was really needed? Check all that apply: N one * ROS: G eneral/Constitutional: pain o nly [...] Muscle aches d enies. P ainful joints C hronic right shoulder pain. S ciatica d enies. W eakness d [...] Hospitalization/Major Diagno stic Procedure: N o history [facility] for severe headache * Family History: [...] dditional Findings: Tobacco non-user E x-cigarette smoker D rugs/Alcohol: D rugs H ave you used drugs other than those for medical reasons in the past 12 months? N o D rug/Alcohol: A ESTEVAN-C (Standard) D id you have a drink containing alcohol in the past year? Y es H ow often did you have six or more drinks on one occasion in the past year? 2 to 4 times a month (2 points) H ow many drinks did you have on a typical day when you were drinking in the past year? 1 or 2 drinks (0 point) H ow often did you have a drink containing alcohol in the past year? N ever (0 point) P oints 2 I nterpretation N egative H olga has been to Sara for 23 years. He is a of the [employer]. He stopped smoking 20 years ago. He works for [employer] and has no toxic exposures. He has 2 children, a son [place], and a daughter, Monika Barnard. He has 8 healthy grandchildren Exercise: Diet: Occasional diarrhea from certain foods Work environment: Alcohol: Advised to limit consumption Living situation: Staying home for [place], cooking for everyone Smoking: No. * Medications: T akingVitamin D3 Vitamin B Complex metFORMIN HCl 850 MG Tablet 1 tablet with a meal Orally Once a day Lisinopril 10 MG Tablet 1 tablet Orally Once a day Atorvastatin Calcium 10 MG Tablet 1 tablet Orally Once a day Taking Vitamin D3 Taking Vitamin B Complex Taking metFORMIN HCl 850 MG Tablet 1 tablet with a meal Orally Once a day Taking Lisinopril 10 MG Tablet 1 tablet Orally Once a day Taking Atorvastatin Calcium 10 MG Tablet 1 tablet Orally Once a day DiscontinuedFolic Acid Sargent 3 Niacin Vitamin C Ginkgo Biloba Aspirin 325 MG Tablet 1 tablet Orally Once a day Medication List reviewed and reconciled with the patientDiscontinued Folic Acid Discontinued Sargent 3 Discontinued Niacin Discontinued Vitamin C Discontinued Ginkgo Biloba Discontinued Aspirin 325 MG Tablet 1 tablet Orally Once a day Medication List reviewed and reconciled with the patient * Allergies: D emerolNo Known Food Allergyno[Allergies Verified] Objective: * Vitals: H t: 73, Wt: 207, BMI:27.31, BP: 124/73, HR: 80, Temp: 99.5, Ht-cm: 185.42, Wt-k.89. * Examination: G eneral Examination: GENERAL APPEARANCE: p leasant, well nourished, well developed, in no acute distress, calm and relaxed: overweight: man. HEAD: a traumatic, normocephalic. EYES: e na, perrla, anicteric, conjugate. EARS: n ormal. NOSE: s eptum intact. ORAL CAVITY: n ormal, unremarkable. NECK/THYROID: n o jugular venous distention, no carotid bruit, the thyroid is not palpable. LYMPH NODES: n o enlarged lymph nodes,spleen [...] a lert, oriented. Assessment: * Assessment: 1. H yperthyroidism - E05.90 (Primary) N otes :It is suspected that he has T3 hyperthyroidism as the TSH is not detectable and his free T4 level is in the normal range. Thyroid function test are pending backspace. 2 . F ormer smoker - Z87.891 N otes :He is highly motivated not to smoke and has not smoked for 20 years. We devised a plan to prevent relapse in times of stress and illness. 3 . O verweight - E66.3 N otes :He has lost 6 pounds since his last visit. We discussed diet and nutrition and made her weight loss strategy. 4 . R ight anterior shoulder pain - M25.511 N otes :This pain has resolved. 5 . O steoarthritis, unspecified osteoarthritis type, unspecified site - M19.90 N otes :He was referred to [place] [facility] for evaluation and treatment of his right shoulder pain. 6 . H yperlipidemia, unspecified hyperlipidemia type - E78.5 N otes :His lipids have been stable and he has lost substantial weight. 7 . S leep apnea, unspecified type - G47.30 N otes :He has stopped using his CPAP as he says he no longer needs it. 8 . E ssential tremor - G25.0 N otes :There was very little tremor visible today. He says it is intermittent. It will be observed at this time. A metabolic profilee will be ordered. At this time I found no sign of Parkinson's 9 . V itamin D deficiency, unspecified - E55.9 N otes :He continues on his supplement. His vitamin D level is in the normal range. 1 0. T ype 2 diabetes mellitus without complication, without long-term current use of insulin - E11.9 N otes :He is tolerating his medications without difficulty. I have ordered comprehensive blood work to include fasting lipids kidney function and fasting lipids. Plan: * Treatment: 2. H yperlipidemia, unspecified hyperlipidemia type L AB: PROFILE, FASTING (COMPREHENSIVE METABOLIC) L AB: TSH (THYROID STIMULATING HORMONE) L AB: FREE T3 (FT3) L AB: Lipid Panel L AB: Free T4 (Free Thyroxine) L AB: Hemoglobin A1c 3. O thers Continue Vitamin D3; C ontinue Vitamin B Complex; C ontinue metFORMIN HCl Tablet, 850 MG, 1 tablet with a meal, Orally, Once a day; C ontinue Lisinopril Tablet, 10 MG, 1 tablet, Orally, Once a day; C ontinue Atorvastatin Calcium Tablet, 10 MG, 1 tablet, Orally, Once a day. ? * Procedure Codes: * Preventive Medicine: Counseling: [...] of tobacco use and urged to quit. 1 DM Care Plan: P atient Lifestyle Goals P atient wants to be able to manage diabetes without too much effort. T reatment Goals B lood Sugars less than < 115, HbA1C < 7.0. B arriers n o barriers. S elf-Managment Goals I ncrease exercise to 3 times a week for 30 mins, Work on weight loss, with a goal of losing 1 lb per week. * Follow Up: 1 Week (Reason: Telehealth) * Images: * Sign off status: Completed true * Provider: Nitish Wells MD Date: Generated for Adele ledesma/Elvi/eTransmitting on: 07:54 AM EST History and Physical Notes * HPI (History of Present Illness) Category Sub-Category Detail Notes Depression Screening PHQ-9 Little inte rest or pleasure in doing things: Not at all Feeling down, depressed, or hopeless: No t at all Trouble falling or staying asleep, or sl eeping too much: Not at all Feeling tired or having little energy: N ot at all Poor appetite or overeating: Not at all Feeling bad about yourself o r that you are a failure, or have let yourself or your family down: Not at all Trouble concentrating on thi ngs, such as reading the newspaper or watching television: Not at all Moving or speaking so slowly that other people could have noticed; or the opposite, being so fidgety or restless that you have been moving around a lot more than usual: Not at all Thoughts that you would be b becca off or of hurting yourself in some way: Not at all Total Score: 0 COVID-19 Screening Questions Have you had any new onset fever, chills, cough, congestion, sore throat, shortness of breath, muscle aches?: No SDOH Questions SDOH Questions In the past year have you been worried about losing your housing?: No In the past year have you or any family members you live with been unable to get any of the following when it was really needed? Check all that apply:: None Examination Category Sub-Category Detail Notes General Examination GENERAL APPEARANCE: pleasant , well nourished, well developed, in no acute distress, calm and relaxed: overweight: man HEAD: atraumatic, normocep halic EYES: eomi, perrla, anicte deneen, conjugate EARS: normal NOSE: septum intact NECK/THYROID: no jugular venous di stention, no carotid bruit, the thyroid is not palpable HEART: no clicks, gallops, murmurs, or rubs, [...]
--- OUTSIDE RECORDS SUMMARY | 2025-06-18 07:53 | XMS_ITS | Patient Health Record ---
Author Organization Jonny Wells III, MD Address [address] [place] [address] [facility] [place] [address] Care Team Providers Care Media Operator Name Role Phone Dr. Jonny Wells III Primary Care Provider [phone] Allergies Allergen (clinical drug ingredient) Drug/Non Drug Allergy documented on EMR Reaction Allergy Type Onset Date Status No Known Food Allergy Unknown Drug Allergy Active meperidine Demerol Unknown Drug Allergy Active Results Component Value Reference Range Notes RBS/Hemocue glucose Reviewed date:06/21/2024 02:18:20 PM Interpretation: Performing Lab: Notes/Report: RBS 154 Lipid Panel Reviewed date:03/04/2025 03:26:39 PM Interpretation: Performing Lab:[facility], [place], [address] [place] [phone] Notes/Report: Triglycerides 42 <150 mg/dL Desirable Triglyceride: [...] Total Reviewed date:03/04/2025 03:26:39 PM Interpretation: Performing Lab:[facility] [place], [address] [place] [phone] Notes/Report: Vitamin D 25-OH Total 58.9 >30 [...] Thyroxine) Reviewed date:03/04/2025 03:26:39 PM Interpretation: Performing Lab:[facility] [place], [address] [place] [phone] Notes/Report: Free T4 (Free Thyroxine) 1.56 0.71-1.85 ng/dL Lyme IgG/IgM w/reflex to WB Reviewed date:06/29/2024 09:06:26 PM Interpretation: Performing Lab:[facility], [place], [address] [place] [phone] Notes/Report: Lyme Abs Screen <0.90 Index Interpretation [...] is apparent. THIS TEST WAS PERFORMED AT: [facility] [address] [place] [phone] MAT MARTIN MD Lyme Blot TNP Complete Blood Count Auto Di ff Reviewed date:11/05/2024 11:51:41 AM Interpretation: Performing Lab:[facility] [place], [address] [place] [phone] Notes/Report: White Blood Count 5.8 4.8-10.8 X10*3/uL [...] NRBC Abs Auto 0.000 0.0-0.012 X10*3/uL Comprehensive [place]. Panel Fa st Reviewed date:11/05/2024 11:51:41 AM Interpretation: Performing Lab:[facility] [place], [address] [place] [phone] Notes/Report: Sodium 138 135-145 mmol/L Potassium 4.6 [...] Panel Reviewed date:11/05/2024 11:51:41 AM Interpretation: Performing Lab:[facility] [place], [address] [place] [phone] Notes/Report: Triglycerides 42 <150 mg/dL Desirable Triglyceride: [...] Total Reviewed date:11/05/2024 11:51:41 AM Interpretation: Performing Lab:[address] [phone] Notes/Report: Vitamin D 25-OH Total 69.0 >30 [...] A1c Reviewed date:11/05/2024 11:51:41 AM Interpretation: Performing Lab:[facility] [place], [address] [place] [phone] Notes/Report: Hemoglobin A1c % 5.7 <6.0 % [...] average glucose, using the formula of the Q1Y-Dtaagmz Average Glucose study (ADAG), Diabetes Care, Vol.31,#8, Jan. 2007 Complete Blood Count Auto Di ff Reviewed date:03/04/2025 03:26:39 PM Interpretation: Performing Lab:[facility] [place], [address] [place] [phone] Notes/Report: White Blood Count 6.2 4.8-10.8 X10*3/uL Red Blood Count 4.40 4.60-5.80 X10*6/uL Hemoglobin 13.6 14.0-18.0 g/dl Hematocrit 39.3 42.0-52.0 % Mean Corpuscular Volume 89.3 80.0-98.0 fL Mean Corpuscular Hemoglobin 30.9 27.0-33.0 pg Mean Corpuscular HGB Conc 34.6 31.0-36.0 g/dl Red Cell Distribution Width 11.9 11.0-16.0 % Platelet Count 161 160-400 X10*3/uL Mean Platelet Volume 11.2 9.4-12.4 fL Neutrophils Percent Auto 48.8 45-73 % Imm Gran Pct Auto 0.2 0.0-0.4 % Lymphocytes Percent Auto 27.6 20-40 % Monocytes Percent Auto 11.8 2-11 % Eosinophils Percent Auto 10.5 0-4 % Basophils Percent Auto 1.1 0-2 % NRBC Pct Auto 0.0 0.0-0.2 /100WBC Neutrophils Absolute Auto 3.0 2.0-8.3 x10*3/u L Imm Gran Abs Auto 0.01 0.00-0.03 X10*3/uL Lymphocytes Absolute Auto 1.7 1.2-4.9 X10*3/u L Monocytes Absolute Auto 0.7 0.1-1.2 X10*3/uL Eosinophils Absolute Auto 0.7 0.0-0.4 X10*3/u L Basophils Absolute Auto 0.1 0.0-0.2 X10*3/uL NRBC Abs Auto 0.000 0.0-0.012 X10*3/uL Erythrocyte Sedimentation Ra te Reviewed date:03/04/2025 03:26:39 PM Interpretation: Performing Lab:[facility] [place], [address] [place] [phone] Notes/Report: Erythrocyte Sedimentation Rate 17 0-15 MM/HR Patients with polycythemia and many hemoglobin abnormalities may have depressed sed rates whereas patients with anemia may have elevated sed rates. Comprehensive [place]wood. Panel Fa st Reviewed date:03/04/2025 03:26:39 PM Interpretation: Performing Lab:[facility] [place], [address] [place] [phone] Notes/Report: Sodium 140 135-145 mmol/L Potassium 4.4 3.3-5.1 mmol/L Chloride 107 96-108 mmol/L Carbon Dioxide 28 22-29 mmol/L Anion Gap 9 12-20 Blood Urea Nitrogen 16 9-16 mg/dL Creatinine 0.63 0.5-1.4 mg/dL Estimated Glomerular Filt Rate > 60 Chronic Kidney Disease: Estimated GFR < 60 mL/min/1.73m2 Severe Kidney Disease: Estimated GFR < 15 mL/min/1.73m2 Glucose Fasting 117 60-99 mg/dL A fasting glucose from 100-125 mg/dl is considered impaired (pre-diabetes). Calcium 9.4 8.4-10.2 mg/dL Bilirubin Total 0.4 0.0-1.0 mg/dL Aspartate Amino Transferase 25 5-37 U/L Alanine Aminotransferase 43 0-40 U/L Total Protein 7.0 6.5-8.0 g/dL Albumin Level 4.2 3.5-5.0 g/dL Alkaline Phosphatase 79 39-117 U/L Thyroid Stimulating Hormone Reviewed date:03/04/2025 03:26:39 PM Interpretation: Performing Lab:[facility] [place], [address] [place] [phone] Notes/Report: Thyroid Stimulating Hormone < 0.01 0.32-4.0 uIU/ mL TSH 3rd Generation ([facility]) Reason For Referral Reason Evaluate and Treat [...] Oral ly Once a day 06/27/2024 Active Immunizations Vaccine Route Administration Date Status Kwesi nts Flu-IIv4pf Unknown 04/01/2022 Administered COVID 19 Moderna Unknown 10/21/2020 Administered Influenza no Preserv 3 and > Unknown 04/18/2015 Adminis tered COVID 19 Moderna Unknown 09/23/2020 Administered Social History Tobacco Use: Social History Observation [...] Problem Status W/U Status Risk Notes Problem 2376183 Former smoker (Z87.891) Active confirmed He is highly motivated not to smoke and has not smoked for 20 years. We devised a plan to prevent relapse in times of stress and illness. Problem DM - Diabetes mellitus (98677108) DM (diabetes mellitus) (E11.9) Active confirmed He has bee n compliant with his metformin. His glucose fasting was 155. At home his glucose is between 69 and 1:30. He has lost 12 pounds. His A1c has fallen from 7.4 to 5.7.No changes in his medication were made today. Problem 603686222 Overweight (E66.3) Active confirmed He has lost 6 pounds since his last visit. We discussed diet and nutrition and made her weight loss strategy. Problem 53181967 Hyperglycemia (R73.9) Active confirmed His fasting glucose is now 117, which is in the prediabetic range. He is losing weight regularly and substantially. This is likely to normalize without medication. Problem Vitamin D deficiency (48091651) Vitamin D deficiency, unspecified (E55.9) Active confirmed He continues on his supplement. His vitamin D level is in the normal range. Problem [id number] Essential tremor (G25.0) Active confirmed There was very little tremor visible today. He says it is intermittent. It will be observed at this time. A metabolic profilee will be ordered. At this time I found no sign of Parkinson's Problem Benign prostatic hyperplasia (167966227) BPH (benign prostatic hyperplasia) (N40.0) Active confirmed He reports that his nocturia has resolved Problem 197630372 Obesity (BMI 30-39.9) (E66.9) Active confirmed He has voluntarily lost 15 pounds. His blood pressure is much improved.His body mass index is now 29 no longer in the obese range. Problem 22550437 Essential hypertension (I10) Active confirmed He was begun on 10 mg of lisinopril daily. Problem 259979636 Osteoarthritis, unspecified osteoarthritis type, unspecified site (M19.90) Active confirmed He was referre d to [facility] for evaluation and treatment of his right shoulder pain. Problem Transient ischemic attack (008787870) TIA (transient ischemic attack) (G45.9) Active confirmed Problem 58053707 Hyperthyroidism (E05.90) Active confirmed It is suspected that he has T3 hyperthyroidism as the TSH is not detectable and his free T4 level is in the normal range. Thyroid function test are pending backspace. Problem 24488445 Sleep apnea, unspecified type (G47.30) Active confirmed He has stopped using his CPAP as he says he no longer needs it. Problem 75719617 Hyperlipidemia, unspecified hyperlipidemia type (E78.5) Active confirmed His lipids have been stable and he has lost substantial weight. 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 His diabetes and lipids are being treated and evaluated. The fox band he had in his visual field is resolving. Problem 148423441 Type 2 diabetes mellitus without complication, without long-term current use of insulin (E11.9) Active confirmed He is tolera ting his medications without difficulty. I have ordered comprehensive blood work to include fasting lipids kidney function and fasting lipids. Problem 13773808 Right anterior shoulder pain (M25.511) Active confirmed This pain has resolved. Problem 86793575 Transient ischemia (I99.8) Active confirmed He has had no further neurological episode since his last visit. Vital Signs Heart Rate 80 /min 06/16/2025 Temperature 99.5 degrees Fahrenheit 06/16/2025 Blood pressure diastolic 73 mm Hg 06/16/2025 Height 73 in 06/16/2025 Blood pressure systolic 124 mm Hg 06/16/2025 Weight 207 lbs 06/16/2025 BMI 27.31 kg/m2 06/16/2025 Encounters Encounter Location Date Provider Diagnosis Jonny Wells III, MD [address] [place] [address] [place] [address] 06/16/2025 Jonny Wells Hyperthyroidism E05. 90 ; [...] of insulin E11.9 Jonny Wells III, MD [address] [place] [address] [place] [address] 06/21/2024 Jonny Wells DM (diabetes mellitu s) E11.9 ; Transient ischemia I99.8 ; Migraine syndrome G43.909 ; Hyperlipidemia, unspecified hyperlipidemia type E78.5 ; Sleep apnea, unspecified type G47.30 ; Former smoker Z87.891 ; BPH (benign prostatic hyperplasia) N40.0 ; Obesity (BMI 30-39.9) E66.9 and Visual impairment H54.7 Jonny Wells III, MD [address] [place] [address] [place] [address] 06/27/2024 Jonny Wells Transient ischemia I 99.8 ; Hyperlipidemia, unspecified hyperlipidemia type E78.5 ; Right anterior shoulder pain M25.511 ; Former smoker Z87.891 ; Sleep apnea, unspecified type G47.30 ; BPH (benign prostatic hyperplasia) N40.0 ; Essential hypertension I10 and Type 2 diabetes mellitus without complication, without long-term current use of insulin E11.9 Jonny Wells III, MD [address] [place] [address] [place] [phone] 08/02/2024 Jonny Wells Obesity (BMI 30-39.9 ) E66.9 ; DM (diabetes mellitus) E11.9 ; BPH (benign prostatic hyperplasia) N40.0 ; Former smoker Z87.891 ; Sleep apnea, unspecified type G47.30 ; Hyperlipidemia, unspecified hyperlipidemia type E78.5 and Right anterior shoulder pain M25.511 Jonny Wells III, MD [address] [place] [address] [place] [phone] 11/08/2024 Jonny Wells DM (diabetes mellitu s) E11.9 ; Former smoker Z87.891 ; Sleep apnea, unspecified type G47.30 ; Hyperlipidemia, unspecified hyperlipidemia type E78.5 ; Osteoarthritis, unspecified osteoarthritis type, unspecified site M19.90 ; Right anterior shoulder pain M25.511 ; BPH (benign prostatic hyperplasia) N40.0 and Vitamin D deficiency, unspecified E55.9 Jonny Wells III, MD [address] [place] [address] [place] [phone] 03/04/2025 Jonny Wells BPH (benign prostati c hyperplasia) N40.0 ; Sleep apnea, unspecified type G47.30 ; Hyperlipidemia, unspecified hyperlipidemia type E78.5 ; Hyperglycemia R73.9 ; Transient ischemia I99.8 ; Right anterior shoulder pain M25.511 and Former smoker Z87.891 Jonny Wells III, MD [address] [place] [address] [place] [address] 01/20/2025 Jonny Wells Hyperlipidemia, unspecified hyperlipidemia type [...] and Overweight E66.3 Jonny Wells III, MD [address] [place] [address] [place] [phone] 06/25/2024 Jonny Wells III, MD [address] [place] [address] [place] [phone] 10/10/2024 Jonny Wells Vitamin D deficiency , unspecified E55.9 Jonny Wells III, MD [address] [place] [address] [place] [phone] 01/29/2025 Jonny Wells III, MD [address] [place] [address] [place] [phone] 03/05/2025 Jonny Wells III, MD [address] [place] [address] [place] [address] 06/24/2024 Jonny Wells Transient ischemia I 99.8 ; BPH (benign prostatic hyperplasia) N40.0 ; Former smoker Z87.891 ; Sleep apnea, unspecified type G47.30 ; Obesity (BMI 30-39.9) E66.9 and Hyperlipidemia, unspecified hyperlipidemia type E78.5 Jonny Wells III, MD [address] [place] [address] [place] [address] 07/04/2024 Jonny Wells Transient ischemia I 99.8 ; Visual impairment H54.7 ; Sleep apnea, unspecified type G47.30 ; Right anterior shoulder pain M25.511 ; Former smoker Z87.891 ; BPH (benign prostatic hyperplasia) N40.0 ; Obesity (BMI 30-39.9) E66.9 and Type 2 diabetes mellitus without complication, without long-term current use of insulin E11.9 Jonny Wells III, MD [address] [place] [address] [place] [address] 06/28/2024 Jonny Wells Assessments Encounter Date Diagnosis (ICD Code) Assessment Notes T reatment Notes Treatment Clinical Notes 06/16/2025 Former smoker (ICD-1 0 - Z87.891) He is highly motivated not to smoke and has not smoked for 20 years. We devised a plan to prevent relapse in times of stress and illness. 06/16/2025 Hyperthyroidism (ICD-10 - E05.90) It is suspected that he has T3 hyperthyroidism as the TSH is not detectable and his free T4 level is in the normal range. Thyroid function test are pending backspace. 06/21/2024 DM (diabetes mellitus) (ICD-10 - E11.9) [...] sign of intracranial ischemia at this time.The neuro-business applications manager believes that there was a ssmall infarction [...] been referred to ophthalmology. 08/02/2024 Obesity (BMI 30-39.9 ) (ICD-10 - E66.9) He has voluntarily lost 15 pounds. His blood pressure is much improved.His body mass index is now 29 no longer in the obese range. 11/08/2024 Former smoker (ICD-1 0 - Z87.891) [...] changes in his medication were made today. 03/04/2025 BPH (benign prostati c hyperplasia) (ICD-10 - N40.0) He reports that his nocturia has resolved 03/04/2025 Sleep apnea, unspecified type (ICD-10 - G47.30) He has stopped using his CPAP as he says he no longer needs it. 01/20/2025 Essential tremor (ICD-10 - G25.0) There was very little tremor visible today. He says it is intermittent. It will be observed at this time. A metabolic profilee will be ordered. At this time I found no sign of Parkinson's 01/20/2025 Hyperlipidemia, unspecified hyperlipidemia type (ICD-10 - E78.5) Comprehensive blood work or the fasting lipid profile has been ordered. 10/10/2024 Vitamin D deficiency , unspecified (ICD-10 - E55.9) 06/24/2024 BPH (benign prostati c hyperplasia) (ICD-10 - [...] sign of intracranial ischemia at this time. 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 He has been placed on aspirin. 06/16/2025 Overweight (ICD-10 - E66.3) He has lost 6 pounds since his last visit. We discussed diet and nutrition and made her weight loss strategy. 06/21/2024 Migraine syndrome (ICD-10 - G43.909) The neurologist diagnosis while in the hospital was of a migraine. He has medication for this. Follow-up visit in the very near future was arranged. 06/27/2024 Right anterior shoulder pain (ICD-10 - M25.511) This pain has resolved. 08/02/2024 BPH (benign prostati c hyperplasia) (ICD-10 - N40.0) He arises from sleep once or twice a night. Once again, we discussed lifestyle modification as a way to reduce nocturia. 11/08/2024 Sleep apnea, unspecified type (ICD-10 - G47.30) He has a CPAP machine that is now functioning. He is using it every night. 03/04/2025 Hyperlipidemia, unspecified hyperlipidemia type (ICD-10 - E78.5) His lipids have been stable and he has lost substantial weight. 01/20/2025 Sleep apnea, unspecified type (ICD-10 - G47.30) He has a CPAP machine that is now functioning. He is using it every night. 06/24/2024 Former smoker (ICD-1 0 - Z87.891) He is highly motivated not to smoke and has not smoked for 20 years. We devised a plan to prevent relapse in times of stress and illness. 07/04/2024 Sleep apnea, unspecified type (ICD-10 - [...] he was unable to locate the facility. 06/16/2025 Right anterior shoulder pain (ICD-10 - M25.511) This pain has resolved. 06/21/2024 Hyperlipidemia, unspecified hyperlipidemia type (ICD-10 - E78.5) He will have a lipid profile done prior to his next visit. No change in his medication was made today. 06/27/2024 Former smoker (ICD-1 0 - Z87.891) He is highly motivated not to smoke and has not smoked for 20 years. We devised a plan to prevent relapse in times of stress and illness. 08/02/2024 Former smoker (ICD-1 0 - Z87.891) [...] a database prior to his next visit. 03/04/2025 Hyperglycemia (ICD-1 0 - R73.9) His fasting glucose is now 117, which is in the prediabetic range. He is losing weight regularly and substantially. This is likely to normalize without medication. 01/20/2025 Osteoarthritis, unspecified osteoarthritis type, unspecified site (ICD-10 - M19.90) He was referred to [facility] for evaluation and treatment of his right shoulder pain. 06/24/2024 Sleep apnea, unspecified type (ICD-10 - [...] was unable to locate the facility. 07/04/2024 Right anterior shoulder pain (ICD-10 - M25.511) This pain has resolved. 06/16/2025 Osteoarthritis, unspecified osteoarthritis type, unspecified site (ICD-10 - M19.90) He was referred to [facility] for evaluation and treatment of his right shoulder pain. 06/21/2024 Sleep apnea, unspecified type (ICD-10 - [...] was unable to locate the facility. 06/27/2024 Sleep apnea, unspecified type (ICD-10 - [...] was unable to locate the facility. 08/02/2024 Sleep apnea, unspecified type (ICD-10 - G47.30) He has a CPAP machine that is now functioning. He is using it every night. 11/08/2024 Osteoarthritis, unspecified osteoarthritis type, unspecified site (ICD-10 - M19.90) He was referred to [facility] for evaluation and treatment of his right shoulder pain. 03/04/2025 Transient ischemia (ICD-10 - I99.8) He has had no further neurological episode since his last visit. 01/20/2025 Right anterior shoulder pain (ICD-10 - M25.511) This pain has resolved. 06/24/2024 Obesity (BMI 30-39.9 ) (ICD-10 - E66.9) He has gained 3 pounds since his last visit. He weighs 242 pounds. His body mass index is 31.9. He remains obese. We have reviewed his weight loss strategy and made a plan to lose weight at a rate of one half of a pound per week. 07/04/2024 Former smoker (ICD-1 0 - Z87.891) He is highly motivated not to smoke and has not smoked for 20 years. We devised a plan to prevent relapse in times of stress and illness. 06/16/2025 Hyperlipidemia, unspecified hyperlipidemia type (ICD-10 - E78.5) His lipids have been stable and he has lost substantial weight. 06/21/2024 Former smoker (ICD-1 0 - Z87.891) He is highly motivated not to smoke and has not smoked for 20 years. We devised a plan to prevent relapse in times of stress and illness. 06/27/2024 BPH (benign prostati c hyperplasia) (ICD-10 - [...] - M25.511) This pain has resolved. 03/04/2025 Right anterior shoulder pain (ICD-10 - [...] change in his medication was made today. 07/04/2024 BPH (benign prostati c hyperplasia) (ICD-10 - N40.0) He arises from sleep once or twice a night. Once again, we discussed lifestyle modification as a way to reduce nocturia. 06/16/2025 Sleep apnea, unspecified type (ICD-10 - G47.30) He has stopped using his CPAP as he says he no longer needs it. 06/21/2024 BPH (benign prostati c hyperplasia) (ICD-10 - N40.0) He arises from sleep once or twice a night. Once again, we discussed lifestyle modification as a way to reduce nocturia. 06/27/2024 Essential hypertension (ICD-10 - I10) He was begun on 10 mg of lisinopril daily. 08/02/2024 Right anterior shoulder pain (ICD-10 - M25.511) This pain has resolved. 11/08/2024 BPH (benign prostati c hyperplasia) (ICD-10 - N40.0) He arises from sleep once or twice a night. Once again, we discussed lifestyle modification as a way to reduce nocturia. 03/04/2025 Former smoker (ICD-1 0 - Z87.891) [...] as a way to reduce nocturia. 07/04/2024 Obesity (BMI 30-39.9 ) (ICD-10 - E66.9) His weight is stable at 242 pounds. His BMI is 39. We reviewed his diet and nutrition. We reviewed his weight loss strategy. 06/16/2025 Essential tremor (ICD-10 - G25.0) There was very little tremor visible today. He says it is intermittent. It will be observed at this time. A metabolic profilee will be ordered. At this time I found no sign of Parkinson's 06/21/2024 Obesity (BMI 30-39.9 ) (ICD-10 - E66.9) He has gained 3 [...] metformin was increased a 50 mg daily. 11/08/2024 Vitamin D deficiency , unspecified (ICD-10 - E55.9) He continues on his supplement. His vitamin D level is in the normal range. 01/20/2025 Essential hypertension (ICD-10 - I10) He was begun on 10 mg of lisinopril daily. 07/04/2024 Type 2 diabetes mellitus without complication, without long-term current use of insulin (ICD-10 - E11.9) He is toleratingHis medications without difficulty. I have ordered comprehensive blood work to include fasting lipids kidney function and fasting lipids. 06/16/2025 Vitamin D deficiency , unspecified (ICD-10 - E55.9) He continues on his supplement. His vitamin D level is in the normal range. 06/21/2024 Visual impairment (ICD-10 - H54.7) His [...] fasting lipids kidney function and fasting lipids. 06/16/2025 Type 2 diabetes mellitus without complication, [...] Order Date PROFILE, FASTING (COMPREHENSIVE METABOLI C) 05/23/2022 PROFILE, FASTING (COMPREHENSIVE METABOLI C) 06/10/2024 PROFILE, FASTING (COMPREHENSIVE METABOLI C) 05/19/2021 PROFILE, FASTING (COMPREHENSIVE METABOLI C) 10/24/2023 PROFILE, FASTING (COMPREHENSIVE METABOLI C) 03/04/2025 PROFILE, FASTING (COMPREHENSIVE METABOLI C) 11/08/2024 PROFILE, FASTING (COMPREHENSIVE METABOLI C) 06/16/2025 PROFILE, FASTING (COMPREHENSIVE METABOLI C) 06/06/2023 PROFILE, FASTING (COMPREHENSIVE METABOLI C) 08/02/2024 PROFILE, FASTING (COMPREHENSIVE METABOLI C) 03/10/2023 PROFILE, FASTING (COMPREHENSIVE METABOLI C) 01/20/2025 PROFILE, FASTING (COMPREHENSIVE METABOLI C) 07/18/2022 FASTING BLOOD SUGAR (FBS, GLUCOSE) 06/06 HEMOGLOBIN A1C (GLYCOHEMOGLOBIN) 023 HEMOGLOBIN A1C (GLYCOHEMOGLOBIN) 022 LIPID PANEL 03/10/2023 LIPID PANEL 07/18/2022 LIPID PANEL 05/19/2021 TSH (THYROID STIMULATING HORMONE) 2024 TSH (THYROID STIMULATING HORMONE) 2024 TSH (THYROID STIMULATING HORMONE) 2024 PSA, TOTAL 06/06/2023 PSA, TOTAL 03/04/2025 PSA, TOTAL 05/23/2022 PSA, TOTAL 03/10/2023 PSA, TOTAL 06/10/2024 PSA, TOTAL 10/24/2023 PSA, TOTAL 05/19/2021 CBC w DIFF 11/08/2024 CBC w DIFF 08/02/2024 CBC w DIFF 03/04/2025 CBC w DIFF 01/20/2025 CBC w DIFF 05/23/2022 CBC w DIFF 03/10/2023 CBC w DIFF 06/10/2024 CBC w DIFF 07/18/2022 CBC w DIFF 05/19/2021 SED RATE (ESR) 01/20/2025 FREE T3 (FT3) 06/16/2025 CBC WITH AUTO DIFF 06/06/2023 CBC WITH AUTO DIFF 10/24/2023 Lipid Panel 11/08/2024 Lipid Panel 08/02/2024 Lipid Panel 06/16/2025 Lipid Panel 03/04/2025 Lipid Panel 06/10/2024 Lipid Panel 10/24/2023 Vitamin D 25-OH Total 11/08/2024 Vitamin D 25-OH Total 10/10/2024 Free T4 (Free Thyroxine) 06/16/2025 Free T4 (Free Thyroxine) 03/04/2025 Microalbumin, Random 11/08/2024 Microalbumin, Random 07/18/2022 Hemoglobin A1c 08/02/2024 Hemoglobin A1c 11/08/2024 Hemoglobin A1c 06/16/2025 Next Appt Details Provider Name:Jonny Wells , 06/25/2025 10:45:00 AM, [address] [place] [address] T[address] VASQUEZ, [place], [address], Provider Name:Jonny Wells , 06/17/2026 03:30:00 PM, [facility] TOMMY VASQUEZ, [place], [address], Insurance Providers Payer Name Payer Address Payer Phone Subscriber Number Group Number Insured Name Patient Relationship to Insured Coverage Start Date Coverage End Date [facility] [address] [place], [place] [id number] [phone] [id number] Tal Marcum Self - patient is the [...] inguinal herniorrhaphy 1996 Hospitalization History Reason Date(Month/Year) [facility] for severe headache No history
--- OUTSIDE RECORDS SUMMARY | 2025-06-18 07:54 | XMS_ITS | Clinical Summary ---
Author Organization [facility] Address [address] [address] Phone Care Team Providers Care [place] Worker Name Role Phone Jonny Wells MD Primary Care Provider [phone]- [phone] Social History Tobacco Use Types Packs/Day Years Used Date Smoking Tobacco: Never Assessed Education Answer Date Recorded Are you interested in more education? Not on naomie e 04/30/2025 Are you concerned about learning? Not on file 04/30/2025 No 04/30/2025 No 04/30/2025 Digital Access Answer Date Recorded No 04/30/2025 No 04/30/2025 Reliable internet access at home? Not on file 04/30/2025 Device with a working camera? Not on file Sex and Gender Information Value Date Recorded Sex Assigned at Not on file Legal Sex Male 11:44 AM EDT Gender Identity Not on file Sexual Orientation Not on file Plan of Treatment Upcoming Encounters Date Type Department Care Team (Late st Contact Info) Description 09/03/2025 2:00 PM EDT Office Visit [facility]hthal[facility] [address] [facility] [address], [place] [address] Pavan Padilla MD [address] [place] [id number] [email or web address] Health Maintenance Due Date Last Done Comments Adult Td,Tdap Booster 1961 LIPID PANEL 1961 DEPRESSION SCREENING 1973 SMOKING Hx and SMOKELESS TOB ACCO SCREENING 1974 HEPATITIS C SCREENING 11/24/1979 HIV ONE-TIME SCREENING (18-6 5 YEARS) 11/24/1979 COLOGUARD 2006 COLONOSCOPY 2006 COLORECTAL CANCER SCREENING 2006 FIT TEST 2006 FOBT 2006 SIGMOIDOSCOPY 2006 VIRTUAL COLONOSCOPY 2006 PNEUMOCOCCAL VACCINES (50+ y ears) (1 of 1 - PCV) 11/24/2011 ZOSTER VACCINES (1 of 2) 11/24/2011 INFLUENZA VACCINE (#1) 2025 COVID-19 VACCINE (1 - 2024-2 6 season) 2025 RSV VACCINE (1 - 1-dose 75+ series) 2036 HEPATITIS A VACCINES Aged Out No long er eligible based on patient's age to complete this topic HIB VACCINES Aged Out No longer eligi ble based on patient's age to complete this topic MENINGOCOCCAL VACCINES (ACWY) Aged Out No longer eligible based on patient's age to complete this topic MENINGOCOCCAL VACCINES (B) Aged Out N o longer eligible based on patient's age to complete this topic Medical Devices Not on file Insurance [facility] PPO EPO [facility] PPO EPO [facility] PPO [facility]PO [facility] [place] [place] [facility] [place] [address] [facility] PPO EPO Care Teams [place] Worker Relationship Specialty Start Date End Date Jonny Wells MD [address] [place] [address] [place] [address] PCP - General Medical Oncology 04/09/25 Additional Source Comments The information contained in this document represents components of the legal health record. It is not the complete legal health record.[facility]
[2025-06-18 08:52] LABS: Alanine Aminotransferase 43 U/L (0-40); Albumin Level 4.3 g/dL (3.5-5.0); Alkaline Phosphatase 86 U/L (39-117); Anion Gap 11 (12-20); Aspartate Amino Transferase 26 U/L (5-37); Blood Urea Nitrogen 14 mg/dL (9-16); Calcium 9.5 mg/dL (8.4-10.2); Carbon Dioxide 27 mmol/L (22-29); Chloride 107 mmol/L (96-108); Cholesterol 111 mg/dL (<200); Estimated Glomerular Filt Rate > 60; HDL Cholesterol 48 mg/dL (>40); Potassium 4.5 mmol/L (3.3-5.1); Sodium 140 mmol/L (135-145); Total Protein 7.4 g/dL (6.5-8.0); Triglycerides 41 mg/dL (<150)
[2025-06-18 09:34] LABS: Free T4 (Free Thyroxine) 1.49 ng/dL (0.71-1.85); Thyroid Stimulating Hormone < 0.01 uIU/mL (0.32-4.0)
== END 2025-06-18 07:49 | disposition home or self-care (01) ==
LOC: HO.LAB 07:48
PROVIDERS: PCP Internal Medicine Medical Oncology; Visit Provider Internal Medicine Medical Oncology
DX: E11.65 Type 2 diabetes mellitus with hyperglycemia (principal); E78.5 Hyperlipidemia, unspecified; E66.3 Overweight; R53.83 Other fatigue
CPT/HCPCS: 36415; 80053; 80061; 83036; 84439; 84443; 84481